=== PATIENT | male | born 1940 | race Caucasian/White ===

== ENCOUNTER 2020-12-29 11:20 | Inpatient (IN) | payer OTHER ==
[2020-12-29 12:17] LABS: Absolute Lymphocytes (CBC) 0.6 K/uL (0.7-4.9); Basophils % 0.2 % (0-1.3); Hematocrit 43.9 % (39.6-49.0); Lymphocytes % 8.4 % (15.3-44.8); MPV 7.3 fL (7.6-11.3); RBC Red Blood Cell Count 4.87 M/uL (4.33-5.43)
[2020-12-29 12:40] LABS: Albumin 3.4 g/dL (3.4-5.0); Bilirubin Direct 0.2 mg/dL (0-0.2); Bilirubin Total 0.7 mg/dL (0.2-1.0); Potassium 4.3 mmol/L (3.5-5.1); Protein, Total 7.9 g/dL (6.4-8.2)
[2020-12-29] MEDS ORDERED: NA CHLORIDE 0.9% 500 ML ONE (13:01)
[2020-12-29] MEDS ORDERED: ONDANSETRON 4 MG/2 ML VIAL ONE (13:01)
--- NOTE | 2020-12-29 14:32 | RAD REPORT ---
EXAM DESCRIPTION: CTAbdomen Pelvis Wo Contrast - 12/29/2020 2:21 pm CLINICAL HISTORY: . chronic inguinal hernia;Abd pain;Nausea / vomiting COMPARISON: No comparisons TECHNIQUE: Biphasic CT imaging of the abdomen and pelvis was performed with 100 ml non-ionic IV cont rast. All CT scans are performed using dose optimization technique as appropriate and may include automated exposure control or mA/KV adjustment according to patient size. FINDINGS: Lower chest: Coronary artery calcifications. Several pulmonary nodules noted in the right lower lobe and lingula. For example, there is a 11 mm nodule in the right lower lobe on image 9, seri es 301. Circumferential thickening of the distal esophagus. Liver: No acute abnormality or suspicious lesions. Biliary: Cholelithiasis. Stomach: Markedly distended stomach. Duodenum: Distended duodenum Pancreas: No significant abnormality. Spleen: No significant abnormality. Adrenal: Benign right adrenal nodule Kidney/ureter: No hydronephrosis. Right nephrolithiasis with stone measuring 9 millimeters. Too small to characterize and/or benign appearing renal lesions are noted. Retroperitoneum: No retroperitoneal adenopathy. Vascular: Atherosclerosis without aneurysm Bowel: Small bowel obstruction with transition point secondary to a large bowel containing right ingu inal hernia with severe enlargement of the scrotum. Free fluid is present.. Peritoneum: No ascites or free air. Bladder: Grossly unremarkable. Reproductive: No adnexal masses. Bones: No acute fracture. Other: n/a IMPRESSION: Mechanical small bowel obstruction secondary to a large sized small bowel containing rig ht inguinal hernia. Free fluid is present. No perforation or abscess. Recommend surgical consultation . Also, consider NG tube decompression of the stomach. Several pulmonary nodules which are indeterminate. Recommend nonemergent chest CT for further evaluat ion.
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
--- NOTE | 2020-12-29 14:53 | ER ---
Nurse's Notes [facility] Name: Lucio Perez III Age: 80 yrs Sex: Male : 1940 Arrival Date: 12/29/2020 Time: 11:39 Bed 27 Private MD: Diagnosis: Other intestinal obstruction;Unilateral inguinal hernia, with obstruction, without gangrene, not specified as recurrent;Acute kidney failure, unspecified Presentation: 12/29 12:20 Chief complaint:. Coronavirus screen: Vaccine status: Patient reports receiving the 2nd kh1 dose of the covid vaccine. received moderna in june nausea, vomiting. Ebola Screen: No symptoms or risks identified at this time. Initial Sepsis Screen: Does the patient meet any 2 criteria? No. Patient's initial sepsis screen is negative. Risk Assessment: Do you want to hurt yourself or someone else? Patient reports no desire to harm self or others. Note Brought in by EMS c/o abd pain times 2 days. positive n/v this am. denies diarrhea. states possible re injury of abd hernia. Onset of symptoms was December 27, 2020. 12:20 Method Of Arrival: EMS: [facility] 12:20 Acuity: NICCI 2 1 12:30 Initial Sepsis Screen: Does the patient have a suspected source of infection? No. kh1 Patient's initial sepsis screen is negative. Triage Assessment: 12:26 General: Appears in no apparent distress. comfortable, Behavior is calm, cooperative, kh1 appropriate for age. Pain: Denies pain. Neuro: No deficits noted. Level of Consciousness is awake, alert, obeys commands, Oriented to person, place, time, situation, Destination Imagination Coordinator are equal bilaterally Moves all extremities. Full function Speech is normal. Cardiovascular: No deficits noted. Reports nausea, vomiting. Respiratory: No deficits noted. Airway is patent Respiratory effort is even, unlabored, Respiratory pattern is regular. GI: Abdomen is distended, Last BM was December 28, 2020. : Swelling noted. - Immunization history:: Adult Immunizations up to date, Client reports receiving the 2nd dose of the Covid vaccine. - Family history:: not pertinent. - Social history:: Smoking status: Patient denies any tobacco usage or history of. Patient/guardian denies using alcohol, street drugs, tobacco products. - Hospitalizations: : No recent hospitalization is reported. Screenin:30 Abuse screen: Denies threats or abuse. Nutritional screening: No deficits noted. kh1 Tuberculosis screening: No symptoms or risk factors identified. Fall Risk None identified. Assessment: 12:29 General: Appears in no apparent distress. Behavior is calm, cooperative, appropriate kh1 for age. Pain: Denies pain. Neuro: No deficits noted. Level of Consciousness is awake, alert, obeys commands, Oriented to person, place, time, situation, Destination Imagination Coordinator are. Cardiovascular: No deficits noted. 14:15 Reassessment: Patient appears in no apparent distress at this time. No changes from [facility] previously documented assessment. Patient and/or family updated on plan of care and expected duration. Pain level reassessed. Patient is alert, oriented x 3, equal unlabored respirations, skin warm/dry/pink. 15:30 Reassessment: Patient appears in no apparent distress at this time. No changes from kh1 previously documented assessment. Patient and/or family updated on plan of care and expected duration. Pain level reassessed. Patient is alert, oriented x 3, equal unlabored respirations, skin warm/dry/pink. 16:46 Reassessment: Patient appears in no apparent distress at this time. No changes from kh1 previously documented assessment. Patient and/or family updated on plan of care and expected duration. Pain level reassessed. Patient is alert, oriented x 3, equal unlabored respirations, skin warm/dry/pink. 17:30 Reassessment: NG Tube placed in left nares. NG Tube is to LIWS. 2200cc of green liquid kh1 noted and discarded awaiting admit ordres. 18:12 Reassessment: Patient appears in no apparent distress at this time. No changes from 1 previously documented assessment. Patient and/or family updated on plan of care and expected duration. Pain level reassessed. Patient is alert, oriented x 3, equal unlabored respirations, skin warm/dry/pink. Patient states feeling better. Vital Signs: 12:20 BP 116 / 70; Pulse 94; Resp 24; Temp 98.4; Pulse Ox 95% on R/A; kh1 12:28 BP 116 / 70; Pulse 94; Resp 24; Temp 98.4(O); Pulse Ox 95% on R/A; kh1 14:15 BP 136 / 77; Pulse 87; Resp 20; Pulse Ox 95% ; kh1 16:00 BP 121 / 81; Pulse 88; Resp 20; Temp 98.0; Pulse Ox 96% ; kh1 18:13 BP 111 / 83; Pulse 87; Resp 18; Pulse Ox 94% on R/A; 1 ED Course: 11:39 Patient arrived in ED. rn 11:39 Clark Steele MD is Attending Physician. rn 12:20 Kimberly Marte is Primary Nurse. kh1 12:26 Triage completed. kh1 12:27 Arm band placed on right wrist. kh1 12:30 No provider procedures requiring assistance completed. Inserted saline lock: 20 gauge [facility] in right antecubital area, using aseptic technique. Blood collected. 12:33 Patient has correct armband on for positive identification. Bed in low position. Call [facility] light in reach. Side rails up X2. Adult w/ patient. 12:34 Basic Metabolic Panel Sent. kh1 12:34 Hepatic Function Sent. kh1 12:34 Lipase Sent. 1 14:21 Abdomen In Process Unspecified. EDMS 14:51 Gisel Brannon MD is Hospitalizing Provider. rn Administered Medications: 12:49 Drug: NS 0.9% 500 ml Route: IV; Rate: bolus; Site: right antecubital; [facility] 12:49 Drug: Zofran (Ondansetron) 4 mg Route: IVP; Site: right antecubital; kh 15:50 Drug: Zosyn (piperacillin-tazobactam) 3.375 grams Route: IVPB; Infused Over: 60 mins; [facility] Site: right antecubital; Outcome: 14:52 Decision to Hospitalize by Provider. rn 12/30 17:38 Patient left the ED. ss Signatures: Dispatcher [employer] EDMS Clark Steele MD MD rn Smirch, Shelby, RN RN ss Kimberly Marte [facility] Corrections: (The following items were deleted from the chart) 12/29 13:01 12:34 CORONAVIRUS+MR.LAB.BRZ drawn and sent. [facility] EDMS 14:17 12:34 To radiology for Abdomen Pelvis W Con+CT.RAD.BRZ. [facility] EDMS
[2020-12-29] MEDS ORDERED: PIPERACIL/TAZO 3.375 GM VIAL IV ONE (15:33)
[2020-12-29] MEDS ORDERED: NA CHLORIDE 0.9% 100 ML ONE (15:34)
[2020-12-29] MEDS ORDERED: PIPER/TAZO/NS 3.375gm 3.375 GM/100 ML BAG ONE (15:36)
--- NOTE | 2020-12-29 18:19 | P.HP ---
Certification for Inpatient Patient admitted to: Inpatient With expected LOS: >2 Midnights Patient will require the following post-hospital care: Senior Living Practitioner: I am a practitioner with admitting privileges, knowledge of patient current condition, hospital course, and medical plan of care. Services: Services provided to patient in accordance with Admission requirements found in Title 42 Section 412.3 of the Code of Federal Regulations <Zia Brito - Last Filed: 12/29/20 18:11> Patient History Date of Service: 12/29/20 Primary Care Provider: Dr. Villafana Reason for admission: Small Bowel Obstruction History of Present Illness: CT Abdomen Pelvis Wo Contrast - 12/29/2020 2:21 pm chronic inguinal hernia; Abd pain; Nausea / vomiting FINDINGS: Lower chest: Coronary artery calcifications. Several pulmonary nodules noted in the right lower lobe and lingula. For example, there is a 11 mm nodule in the right lower lobe on image 9, series 301. Circumferential thickening of the distal esophagus. Liver: No acute abnormality or suspicious lesions. Biliary: Cholelithiasis. Stomach: Markedly distended stomach. Duodenum: Distended duodenum Pancreas: No significant abnormality. Spleen: No significant abnormality. Adrenal: Benign right adrenal nodule Kidney/ureter: No hydronephrosis. Right nephrolithiasis with stone measuring 9 millimeters. Too small to characterize and/or benign appearing renal lesions are noted. Retroperitoneum: No retroperitoneal adenopathy. Vascular: Atherosclerosis without aneurysm Bowel: Small bowel obstruction with transition point secondary to a large bowel containing right inguinal hernia with severe enlargement of the scrotum. Free fluid is present.. Peritoneum: No ascites or free air. Bladder: Grossly unremarkable. Reproductive: No adnexal masses. Bones: No acute fracture. Other: n/a IMPRESSION: Mechanical small bowel obstruction secondary to a large sized small bowel containing right inguinal hernia. Free fluid is present. No perforation or abscess. Recommend surgical consultation. Also, consider NG tube decompression of the stomach. Several pulmonary nodules which are indeterminate. Recommend nonemergent chest CT for further evaluation. Lucio Perez is a 80-year-old white male with significant medical history. Currently has mild dementia suffers from skin cancer with multiple lesions and is a bit hard of hearing, he has diabetes and and an abdominal hernia. Approximately 4 days ago he began to have pain in his lower abdomen which his attributed to musculoskeletal strain from working outside. The pain worsened across the next 3 days and this morning the patient was unable to eat and vomited some Ensure. As a result he came to the emergency room. The patient's abdomen was distended and tender to the touch. A CT scan demonstrated a small bowel obstruction. Dr. Harrington was consulted about the case and is going to provide surgical assistance today. Patient currently has an NG tube to intermittent suction and is resting comfortably. His is present. Sodium 132, glucose 243, BUN 60, creatinine 3.21, GFR 19, patient is Covid negative. White blood count is 7.1. Home medications list reviewed: Yes - Past Medical/Surgical History Diabetic: Yes -: Small bowel obstruction -: Inguinal hernia -: Renal failure -: Skin Cancer -: HTN -: Memory loss -: Skin Cancer surgeries Psychosocial/ Personal History: Lives at home with . Retired. - Family History Father -: Heart disease Mother -: Heart disease - Social History Smoking Status: Never smoker Alcohol use: No CD- Drugs: No Caffeine use: Yes Place of Residence: Home <Zia Brito - Last Filed: 12/29/20 18:11> Date of Service: 12/29/20 <Gisel Brannon - Last Filed: 01/03/21 01:53> Allergies No Known Allergies Allergy (Unverified 12/29/20 21:51) Home Medications: Amlodipine [Norvasc*] 5 mg PO DAILY #30 tab 01/01/21 Ciprofloxacin HCl [Cipro 250 MG Tablet*] 250 mg PO BID #14 tab 01/01/21 Donepezil [Aricept*] 1 tab PO BEDTIME 01/01/21 Metformin HCl [Glucophage*] 1 tab PO BID 01/01/21 Metoprolol Tartrate [Lopressor*] 1 tab PO DAILY 01/01/21 Sertraline [Zoloft*] 25 mg PO DAILY 01/01/21 metroNIDAZOLE [Flagyl] 250 mg PO Q8H #20 tablet 01/01/21 Review of Systems General: Unremarkable Eyes: Unremarkable ENT: Unremarkable Respiratory: Unremarkable Cardiovascular: Unremarkable Gastrointestinal: Nausea, Vomiting, Abdominal Pain, Distention, As per HPI Genitourinary: Unremarkable Musculoskeletal: Unremarkable Integumentary: As per HPI (Skin Lesions) Neurological: Other (Memory loss and dementia (mild)) <Zia Brito - Last Filed: 12/29/20 18:11> Physical Examination - Physical Exam General: Alert, Oriented x3 HEENT: Normocephalic, PERRLA Neck: Supple Respiratory: Clear to auscultation bilaterally, Normal air movement Cardiovascular: No edema, Normal pulses Capillary refill: <2 Seconds Gastrointestinal: Hypoactive, Rigidity, Distended, Tenderness Musculoskeletal: No clubbing, No swelling, No contractures Integumentary: Other (multiple skin lesions (cancerous)) External genitalia: Deferred Rectal: Deferred - Studies Laboratory Data (last 24 hrs) 12/29/20 12:03: WBC 7.10, Hgb 15.0, Hct 43.9, Plt Count 281 12/29/20 12:03: Sodium 132 L, Potassium 4.3, BUN 60 H, Creatinine 3.21 H, Glucose 243 H, Total Bilirubin 0.7, AST 37, ALT 29, Alkaline Phosphatase 80, Lipase 105 <Zia Brito - Last Filed: 12/29/20 18:11> Assessment and Plan - Plan Assessment: Small bowel obstruction Inguinal hernia Diabetes Renal Failure Dementia Skin Cancer Plan: Small bowel obstruction: NPO, NG tube to intermittent suction. IV NS 75 Inguinal hernia: Surgical consult Diabetes: Monitor blood sugar, Sliding scale Renal Failure: Nephrology consult Dementia: Follow up with PCP Skin Cancer: Pt being followed by oncology. DVT PPx: None (pending surgery) CODE STATUS: Full Discharge Plan: Home Plan to discharge in: Greater than 2 days - Advance Directives Does patient have a Living Will: No Does patient have a Durable POA for Healthcare: No - Code Status/Comfort Care Code Status Assessed: Yes Code Status: Full Code Time Spent Managing Pts Care (In Minutes): 55 <Zia Brito - Last Filed: 12/29/20 18:11> - Problems (Diagnosis) (1) Small bowel obstruction Current Visit: Yes Status: Acute (2) Acute renal insufficiency Current Visit: Yes Status: Acute (3) Hypertension Current Visit: Yes Status: Acute (4) Dementia Current Visit: Yes Status: Acute <Gisel Brannon - Last Filed: 01/03/21 01:53> Date of Service: 12/29/20 Subjective Patient continues to improve. Patient clinical symptoms have not changed. Inguinal hernia is reducible; however, CT scan shows obstruction. Spoke with Cardiology and they state that because of CT scan finding the procedure is more of an emergency. Patient is moderate risk for complications the benefit of surgery outweigh the risks. They have advised to proceed with surgery intervention Review of Systems 10-point ROS is otherwise unremarkable Physical Examination - Vital Signs Reviewed - Physical Exam General: Alert, In no apparent distress, Oriented x3 Respiratory: Clear to auscultation bilaterally, Normal air movement Cardiovascular: Regular rate/rhythm, Normal S1 S2 Gastrointestinal: Diminished breath sounds but still distended; inguinal hernia Musculoskeletal: No tenderness Neurological: Sensation intact, Cranial nerves 3-12 intact Assessment & Plan - Problems (Diagnosis) (1) Small bowel obstruction secondary to inguinal hernia Current Visit: Yes Status: Acute (2) Acute renal insufficiency Current Visit: Yes Status: Acute (3) Hypertension Current Visit: Yes Status: Acute (4) Dementia Current Visit: Yes Status: Acute - Plan Plan: Continue with plan of care as mentioned below 1. General surgery consultation appreciated; proceed with surgery in a.m. 2. NPO 3. Pain control 4. Monitor electrolytes 5. Continue monitoring renal function 6. IV hydration; abd./renal ultrasound pending 7. Strict blood pressure control 8. Abdominal film as needed 9. GI and DVT prophylaxis <Gisel Brannon - Last Filed: 01/03/21 01:53>
[2020-12-29] MEDS: INSULIN -REGULAR HUMAN 50 UNIT/0.5 ML ML SQ SCH (21:51)
[2020-12-29] MEDS ORDERED: MORPHINE 2 MG/ML SYR IV PRN (21:51)
[2020-12-29] MEDS ORDERED: ONDANSETRON 4 MG/2 ML VIAL IV PRN (21:51)
[2020-12-29] MEDS: NA CHLORIDE 0.9% 1,000 ML IV SCH (21:51)
[2020-12-29] MEDS ORDERED: NA CHLORIDE 0.9% 1,000 ML ONE (22:23)
[2020-12-29 23:28] LABS: Thyroid Stimulating Hormone 1.02 uIU/mL (0.360-3.740)
[2020-12-30] MEDS ORDERED: HALOPERIDOL LACT 5 MG/ML INJ IV ONE (00:55)
[2020-12-30] MEDS ORDERED: HALOPERIDOL LACT 5 MG/ML INJ ONE ×3 (01:30→16:27)
[2020-12-30] MEDS ORDERED: LORazepam 2 MG/ML VIAL IV ONE (02:11)
[2020-12-30] MEDS ORDERED: LORazepam 2 MG/ML VIAL ONE (02:38)
[2020-12-30] MEDS ORDERED: MORPHINE 2 MG/ML SYR ONE (02:54)
[2020-12-30 04:15] VITALS: BMI 25.0
[2020-12-30 07:03] LABS: Absolute Lymphocytes (CBC) 0.8 K/uL (0.7-4.9); Basophils % 0.2 % (0-1.3); Hematocrit 38.6 % (39.6-49.0); Lymphocytes % 16.6 % (15.3-44.8); MPV 7.5 fL (7.6-11.3); RBC Red Blood Cell Count 4.33 M/uL (4.33-5.43)
[2020-12-30 07:14] LABS: Albumin 3.1 g/dL (3.4-5.0); Bilirubin Total 0.5 mg/dL (0.2-1.0); Magnesium 1.8 mg/dL (1.8-2.4); Potassium 3.5 mmol/L (3.5-5.1); Uric Acid 10.5 mg/dL (3.5-7.2)
--- NOTE | 2020-12-30 07:14 | P.PN ---
Subjective Date of Service: 12/30/20 Primary Care Provider: Dr. Villafana Chief Complaint: Small Bowel Obstruction Physical Examination - Vital Signs Temperature: 97.9 F Blood Pressure: 109/59 Pulse: 85 Respirations: 18 Pulse Ox (%): 98 - Studies Laboratory Data (last 24 hrs) 12/29/20 12:03: WBC 7.10, Hgb 15.0, Hct 43.9, Plt Count 281 12/29/20 12:03: Sodium 132 L, Potassium 4.3, BUN 60 H, Creatinine 3.21 H, Glucose 243 H, Total Bilirubin 0.7, AST 37, ALT 29, Alkaline Phosphatase 80, Lipase 105
--- NOTE | 2020-12-30 07:14 | P.CNS ---
Date of Consult: 12/30/20 Reason for Consult: ASHLYN Requesting Physician: Gisel Brannon Primary Care Provider: Dr. Villafana Chief Complaint: Small Bowel Obstruction History of Present Illness: 80M w/ PMHx of inguinal hernia, hypertension, and skin cancer, who presented with abdominal pain. He reported abdominal pain mostly in the epigastric area. CT scan of the abdomen and pelvis showed a small bowel obstruction with a right inguinal hernia. He is referred to Nephrology for renal failure. His serum creatinine on admission is 3.2, and improved to 2.6 with IV fluids. His baseline renal function is unknown. He is still receiving IV fluids. He has an NG tube in place. He had a renal ultrasound done that showed an 8 mm right nephrolithiasis. Allergies No Known Allergies Allergy (Unverified 12/29/20 21:51) - Past Medical/Surgical History Diabetic: Yes -: Small bowel obstruction -: Inguinal hernia -: Renal failure -: Skin Cancer -: HTN -: Memory loss -: Skin Cancer surgeries Psychosocial/ Personal History: Lives at home with . Retired. - Family History Father Medical History: Heart disease Mother Medical History: Heart disease - Social History Alcohol use: No CD- Drugs: No Caffeine use: Yes Place of Residence: Home Review of Systems General: Weakness Eyes: Unremarkable ENT: Unremarkable Respiratory: Unremarkable Cardiovascular: Unremarkable Gastrointestinal: Abdominal Pain Genitourinary: Unremarkable Musculoskeletal: Unremarkable Integumentary: Unremarkable Neurological: Weakness Lymphatics: Unremarkable Physical Examination Temp Pulse Resp BP Pulse Ox 97.9 F 85 18 109/59 L 98 12/30/20 04:00 12/30/20 04:00 12/30/20 04:00 12/30/20 04:00 12/30/20 04:00 General: Other (appears as his stated age) HEENT: Atraumatic, Normocephalic, Other (has NG tube in place) Neck: Supple, JVD not distended Respiratory: Clear to auscultation bilaterally, Other (symmetric chest expansion) Cardiovascular: Normal S1 S2, No rubs, No murmurs Gastrointestinal: Hypoactive, Soft and benign Musculoskeletal: No clubbing Integumentary: No warmth Neurological: Normal tone Urinary: Other (no bladder distention) External genitalia: Deferred Rectal: Deferred Laboratory Data (last 24 hrs) 12/29/20 12:03: WBC 7.10, Hgb 15.0, Hct 43.9, Plt Count 281 12/29/20 12:03: Sodium 132 L, Potassium 4.3, BUN 60 H, Creatinine 3.21 H, Glucose 243 H, Total Bilirubin 0.7, AST 37, ALT 29, Alkaline Phosphatase 80, Lipase 105 Conclusions/Impression: # ASHLYN 2/2 prerenal state +/- ATN from prolonged prerenal Baseline renal function unknown CPK not elevated, no rhabdomyolysis Serum creatinine improved from 3.2 to 2.6 with IV fluids Continue IV fluids Urinalysis shows trace proteinuria but no hematuria no pyuria Follow-up urine chemistry and random urine protein grand ratio # Small bowel obstruction +R inguinal hernia On NG tube suction currently Continue same IV fluids Serial abdominal examination Further evaluation and management per other services # Hypertension BP at goal Not currently on BP meds Monitor # Alkalosis Monitor
[2020-12-30] MEDS: INSULIN -REGULAR HUMAN 50 UNIT/0.5 ML ML SQ SCH ×4 (07:30→20:33)
[2020-12-30 07:32] LABS: Urine Appearance CLEAR (Clear); Urine Blood NEGATIVE (Negative); Urine Color YELLOW (Yellow); Urine Glucose NEGATIVE (Negative); Urine Protein TRACE (Negative); Urine Urobilinogen 0.2 mg/dL (0.2-1.0)
--- NOTE | 2020-12-30 07:43 | RAD REPORT ---
EXAM DESCRIPTION: US - Renal Ultrasound-Complete - 12/30/2020 2:31 am CLINICAL HISTORY: Acute renal failure COMPARISON: January 06, 2021 cat scan FINDINGS: The right kidney measures 11 cm with a normal echotexture. 8 millimeter calculus. 1.6 cent imeter cyst The left kidney measures 11 cm with a normal echotexture. 2.8 centimeter cyst Hydronephrosis is not seen. No gross abnormality of bladder. Mild enlargement of the prostate gland IMPRESSION: Nonobstructing right renal calculus Bilateral renal cysts No hydronephrosis
[2020-12-30 07:50] LABS: Urine Bilirubin 1+ (Negative); Urine Microscopic Reflex ORDER UMIC
[2020-12-30 07:54] LABS: Urine Bacteria 20-50 /HPF (NONE SEEN); Urine RBC <5 /HPF (NONE SEEN)
[2020-12-30] MEDS: HALOPERIDOL LACT 5 MG/ML INJ IV PRN (10:55)
[2020-12-30] MEDS: NA CHLORIDE 0.9% 1,000 ML IV SCH ×2 (11:11→20:32)
[2020-12-30] MEDS ORDERED: MINERAL OIL 30 ML UCUP PO ONE (13:34)
--- NOTE | 2020-12-30 13:40 | P.PN ---
Subjective Date of Service: 12/29/20 Chart reviewed. Agree with plan per nurse practitioner. Patient with small- bowel obstruction. Continue with NG tube to suction. Patient with severe renal insufficiency. Continue with IV hydration. Continue monitoring renal function. We do not have a baseline. Otherwise, no new complaints. Review of Systems 10-point ROS is otherwise unremarkable Physical Examination - Vital Signs Temperature: 97.9 F Blood Pressure: 124/62 Pulse: 88 Respirations: 16 Pulse Ox (%): 99 - Physical Exam General: Alert, In no apparent distress, Oriented x3 HEENT: Atraumatic, PERRLA, Other (NG tube to suction), EOMI Neck: Supple, JVD not distended Respiratory: Clear to auscultation bilaterally, Normal air movement Cardiovascular: Regular rate/rhythm, Normal S1 S2 Gastrointestinal: Absent bowel sounds, Distended, Tenderness Musculoskeletal: No tenderness Neurological: Sensation intact, Cranial nerves 3-12 intact - Studies Medications List Reviewed: Yes Assessment & Plan - Problems (Diagnosis) (1) Small bowel obstruction Current Visit: Yes Status: Acute (2) Acute renal insufficiency Current Visit: Yes Status: Acute (3) Hypertension Current Visit: Yes Status: Acute (4) Dementia Current Visit: Yes Status: Acute - Plan Plan: 1. General surgery consultation 2. NPO 3. Pain control 4. Monitor electrolytes 5. Continue monitoring renal function 6. Aggressive IV hydration 7. Monitor neuro status closely 8. Out of bed and ambulate 9. Repeat abdominal film 10. GI and DVT prophylaxis Discharge Plan: Home Plan to discharge in: Greater than 2 days - Advance Directives Does patient have a Living Will: Yes Does patient have a Durable POA for Healthcare: No - Code Status/Comfort Care Code Status: Full Code Critical Care: No Time Spent Managing PTS Care (In Minutes): 45
--- NOTE | 2020-12-30 13:42 | P.PN ---
Date of Service: 12/30/20 Subjective Patient with altered mental status last night. Patient was given Haldol and now patient is asleep. Review of Systems 10-point ROS is otherwise unremarkable Physical Examination - Vital Signs Reviewed - Physical Exam General: Alert, In no apparent distress, Oriented x3 Respiratory: Clear to auscultation bilaterally, Normal air movement Cardiovascular: Regular rate/rhythm, Normal S1 S2 Gastrointestinal: Absent bowel sounds, Distended, Tenderness Musculoskeletal: No tenderness Neurological: Sensation intact, Cranial nerves 3-12 intact Assessment & Plan - Problems (Diagnosis) (1) Small bowel obstruction Current Visit: Yes Status: Acute (2) Acute renal insufficiency Current Visit: Yes Status: Acute (3) Hypertension Current Visit: Yes Status: Acute (4) Dementia Current Visit: Yes Status: Acute - Plan Plan: Continue with plan of care as mentioned below 1. General surgery consultation appreciated 2. NPO 3. Pain control 4. Monitor electrolytes 5. Continue monitoring renal function 6. Aggressive IV hydration; renal ultrasound pending 7. Haldol IV; patient most likely sundowning 8. Strict blood pressure control 9. Repeat abdominal film 10. GI and DVT prophylaxis
[2020-12-30] MEDS ORDERED: NA CHLORIDE 0.9% 1,000 ML ONE (14:27)
--- NOTE | 2020-12-30 19:39 | P.CNS ---
Date of Consult: 12/29/20 PC: I was asked to see this 80-year-old male regards to a partial small bowel obstruction. HPC: Patient has been working over the weekend in his yard. This morning when he woke up, he was having left-sided swelling and groin pain. The patient has a history of a left inguinal hernia. PSHx: Numerous surgeries for skin cancers PMHx: Hypertension, mild dementia Social Hx: No known allergies Sys R: States he is otherwise in good health O/E: Awake alert vital signs are stable HEENT: Nasogastric tube in place, already has 2 L of green thick bilious content Chest: Chest movement equal bilaterally Abd: Abdomen is mildly distended, mildly tender. [The ER physician describes it as being markedly tender when he initially examined the patient. This was prior to placement of NG tube.] Has a left inguinal hernia [place]: Intact Data: CT scan demonstrates left inguinal hernia, with partial small bowel obstruction, no clear-cut evidence of vascular compromise Impression: Patient presented with a initial left lower quadrant abdominal pain associated with his left inguinal hernia. He has already responded to the nasogastric tube and some initial decompression by the time I saw him. Plan: Continue nasogastric suction, IV fluids, will follow with you.
[2020-12-31 06:29] LABS: Absolute Lymphocytes (CBC) 0.8 K/uL (0.7-4.9); Basophils % 0.4 % (0-1.3); Hematocrit 38.9 % (39.6-49.0); Lymphocytes % 15.2 % (15.3-44.8); MPV 7.1 fL (7.6-11.3); RBC Red Blood Cell Count 4.33 M/uL (4.33-5.43)
[2020-12-31 06:49] LABS: Bilirubin Total 0.6 mg/dL (0.2-1.0); Magnesium 2.1 mg/dL (1.8-2.4); Phosphorus 2.1 mg/dL (2.5-4.9); Potassium 3.4 mmol/L (3.5-5.1)
[2020-12-31] MEDS: INSULIN -REGULAR HUMAN 50 UNIT/0.5 ML ML SQ SCH ×4 (07:30→20:08)
[2020-12-31] MEDS ORDERED: POTASSIUM CL 40 MEQ in NA CHLORIDE 0.9% 500 ML IV ONE (08:00)
--- NOTE | 2020-12-31 08:54 | RAD REPORT ---
EXAM DESCRIPTION: RAD - Abdomen W Erect - 12/31/2020 5:44 am CLINICAL HISTORY: Small-bowel obstruction Pain COMPARISON: Abdomen Pelvis Wo Contrast dated 12/29/2020 FINDINGS: Moderately organized and stacked dilated small bowel loops are present throughout the abdo men compatible with a moderate mechanical small-bowel obstruction. There is a lack of gas seen in the colon. No evidence of pneumoperitoneum. No pathologic calcifications. IMPRESSION: Moderate mechanical small-bowel obstruction is present.
[2020-12-31] MEDS ORDERED: POTASSIUM PHOS 10 MM in NA CHLORIDE 0.9% 250 ML IV ONE (13:30)
[2020-12-31] MEDS: NA CHLORIDE 0.9% 1,000 ML IV SCH (13:51)
[2020-12-31] MEDS ORDERED: MINERAL OIL 30 ML UCUP PO ONE (14:12)
--- NOTE | 2020-12-31 16:34 | PN ---
Date of Progress Note: 12/31/2020 Subjective: The patient was admitted with acute kidney injury secondary to small bowel obstruction and prerenal. The patient's after hydration kidney function has been improved significantly. Physical Examination: Vital Signs: When I saw the patient; blood pressure 137/70, pulse of 84, afebrile. Chest: Clear to auscultation. Heart: S1, S2. Regular. Systolic murmur. Abdomen: Soft. Bowel sounds appreciated. No guarding. Extremities: No edema. Neurologic: Alert. No focality. Laboratory Data: WBC 5.3, H and H 13.5/38.9. Sodium 142, potassium 3.4, bicarb 27, BUN 52, creatinine 1.5, calcium 8.5, phosphorus 2.1, magnesium of 2.1. Current Medications: The patient on include haloperidol, lorazepam, insulin, IV fluid. Assessment And Plan: 1. Acute kidney injury secondary to prerenal, obstructive uropathy has been ruled out. We will continue hydration. 2. Hypokalemia, hypophosphatemia. We will supplement and we will follow up the patient. 3. Small bowel obstruction as by primary. 4. Hypertension, controlled, optimal. Continue to monitor off JENNIFER inhibitor and ARB. JUNE/ANGUS Voice ID: [id number] Report ID: [id number] MTDD
[2021-01-01] MEDS: NA CHLORIDE 0.9% 1,000 ML IV SCH (01:03)
[2021-01-01 01:10] LABS: UR PROTEIN 75.3 mg/dL (<11.9); Urine Protein/Creatinine Ratio 0.34 ratio (<0.15)
[2021-01-01 05:25] LABS: Absolute Lymphocytes (CBC) 0.9 K/uL (0.7-4.9); Basophils % 0.1 % (0-1.3); Hematocrit 41.1 % (39.6-49.0); Lymphocytes % 9.2 % (15.3-44.8); MPV 7.4 fL (7.6-11.3); RBC Red Blood Cell Count 4.52 M/uL (4.33-5.43)
[2021-01-01 05:49] LABS: Albumin 3.4 g/dL (3.4-5.0); Bilirubin Total 0.6 mg/dL (0.2-1.0); Potassium 3.9 mmol/L (3.5-5.1); Protein, Total 7.5 g/dL (6.4-8.2)
[2021-01-01] MEDS ORDERED: POTASSIUM 25 MEQ EFFERV TAB PO ONE (07:11)
[2021-01-01] MEDS: INSULIN -REGULAR HUMAN 50 UNIT/0.5 ML ML SQ SCH ×4 (07:30→21:00)
--- NOTE | 2021-01-01 14:28 | PN ---
Date of Progress Note: 01/01/2021 Subjective: The patient was admitted with acute kidney injury and shortness of breath with hypokalem ia. The patient's after hydration kidney function got close to baseline. Physical Examination: Vital Signs: When I saw the patient; blood pressure 150/82, pulse of 79, afebrile. Chest: Clear to auscultation. The patient lying flat. Heart: S1, S2. Regular. Systolic murmur. Abdomen: Soft, nontender. Extremity: No edema. Neuro: Alert. No focality. Laboratory Data: Sodium 138, potassium 3.9, bicarb 29, BUN 31, creatinine 1.3, calcium 8.7. H and H 14/41.1. Current Medications: The patient on include insulin, haloperidol, normal saline at 75 per hour, KCl. Assessment And Plan: 1.Acute kidney injury secondary to prerenal, secondary to GI loss, recovered, resolved. I am going to go ahead and discontinue IV fluid. 2.Hypokalemia, status post supplement, resolved. 3.Hyponatremia secondary to depletional, resolved. Discontinue IV fluid. 4.Small bowel obstruction as by Surgery and hospitalist. JUNE/ANGUS Voice ID: [id number] Report ID: [id number]
--- NOTE | 2021-01-01 18:52 | RAD REPORT ---
EXAM DESCRIPTION: RAD - Abdomen 1 View (KUB) - 01/01/2021 6:45 pm CLINICAL HISTORY: abdominal pain Pain COMPARISON: Abdomen W Erect dated 12/31/2020; Abdomen Pelvis Wo Contrast dated 12/29/2020 FINDINGS: Moderately severe mechanical small bowel obstruction is present. The degree of the obstruc tion appears mildly worse with several dilated small bowel loops now projecting in the region of the scrotal hernia. No free air evident. No pathologic calcifications. IMPRESSION: Mild worsening in the mechanical small-bowel obstruction since yesterday's study.
--- NOTE | 2021-01-02 05:24 | P.PN ---
Subjective Date of Service: 01/02/21 Primary Care Provider: Dr. Villafana Chief Complaint: Small Bowel Obstruction Subjective: No new changes Physical Examination - Vital Signs Temperature: 97.7 F Blood Pressure: 136/75 Pulse: 102 Respirations: 20 Pulse Ox (%): 93 - Physical Exam General: Other (appears as his stated age) HEENT: Atraumatic, Normocephalic Neck: Supple, JVD not distended Respiratory: Other (symmetric chest expansion) Cardiovascular: No rubs, No murmurs Gastrointestinal: Soft and benign, No guarding Musculoskeletal: No clubbing Integumentary: No warmth Neurological: Normal tone Urinary: Other (no bladder distention) - Studies Medications List Reviewed: Yes Assessment And Plan - Plan # ASHLYN 2/2 prerenal state +/- ATN from prolonged prerenal Improved Baseline renal function unknown [place] po fluid intake Monitor renal panel # Small bowel obstruction +R inguinal hernia Serial abdominal examination Repeat CT A/P on 01/02 showed no acute findings Further evaluation and management per other services # Hypertension BP at goal Not currently on BP meds Monitor # Alkalosis Monitor
[2021-01-02 06:16] LABS: Potassium 3.9 mmol/L (3.5-5.1)
[2021-01-02] MEDS: INSULIN -REGULAR HUMAN 50 UNIT/0.5 ML ML SQ SCH ×4 (07:30→22:14)
[2021-01-02] MEDS ORDERED: POTASSIUM CL SA 10 MEQ TAB PO ONE (09:00)
--- NOTE | 2021-01-02 12:34 | RAD REPORT ---
EXAM DESCRIPTION: CT - Abdomen Pelvis W Contrast - 01/02/2021 11:36 am CLINICAL HISTORY: Abdominal pain COMPARISON: December 29, 2020 TECHNIQUE: Computed axial tomography of the abdomen pelvis was obtained. 100 cc Isovue-300 was admin istered intravenously. Oral contrast was not requested which limits evaluation of bowel. All CT scans are performed using dose optimization technique as appropriate and may include automated exposure control or mA/KV adjustment according to patient size. FINDINGS: Hepatic and splenic granulomata. The pancreas and left adrenal gland are unremarkable. 4 centimeter right adrenal mass. 10 millimeter calculus right kidney. No hydronephrosis. Bilateral renal cysts. Gallstones without gallbladder wall thickening. Bilateral pulmonary nodules Marked gastric distention. Large right inguinal hernia contains small bowel. Proximal small bowel is dilated. A transition point is present within the hernia. Fluid is present within the hernia. Small left inguinal hernia contain s fat. Prostate gland is mildly to moderately enlarged. IMPRESSION: A large right inguinal hernia contains small bowel. This results in a mechanical obstruc tion. Large amount of fluid is present within the hernia. Multiple bilateral pulmonary nodules may indicate metastatic disease or granulomas. CT chest recommen ded. 4 centimeter right adrenal mass is nonspecific. MRI would be helpful to rule in an adenoma. Cholelithiasis without evidence of cholecystitis
[2021-01-02] MEDS: D5W 1,000 ML with NA BICARB 8.4% 50 MEQ IV SCH ×2 (14:43)
--- NOTE | 2021-01-02 17:00 | CON ---
Date of Consultation: 01/02/2021 Reason For Consultation: Preop evaluation before hernia surgery. History Of Present Illness: This 80-year-old male with no cardiac history, had numerous skin surgeri es under general anesthesia due to skin cancer. Last one was about 4 years ago and no issues with ge neral anesthesia, presented with a large inguinal hernia that seems to cause obstruction. I was aske d to evaluate cardiac risk before surgery. Past Medical History: Hypertension, skin cancer, large inguinal hernia. Medication: Refer to reconciliation sheet for detailed list. Allergies: NO KNOWN DRUG ALLERGIES. Family History: No premature coronary artery disease or cancer. Review of Systems: All systems reviewed, negative except what mentioned in the HPI. Physical Examination: Vital Signs: Temperature is 98.0, pulse 97, breathing at 18, blood pressure 148/84, satting 96%. General: Pleasant elderly male, in no distress. Head and Neck: Pupils are equal, reactive to light. Intact eye movements. No JVD. No cervical lym phadenopathy. Neck: Supple. Thyroid is not enlarged. Lungs: Clear to auscultation bilaterally. No rhonchi, rales, or crackles. No accessory muscle use. Heart: Regular with aortic systolic murmur. Abdomen: Soft, nontender. Extremities: No clubbing, cyanosis. Skin: No rashes. Has multiple skin scars from old surgeries. Neurologic: Alert, awake, oriented x3. No focal deficits appreciated. Investigations: Labs were reviewed. Assessment And Recommendations: Cardiac preop risk assessment. This patient is active and he does h is yard work by himself without limitations of chest pain or significant shortness of breath and rece ntly climbed more than 1 flight of stairs without any chest pain. No known cardiac history. Due to his age, he is at moderate cardiac risk, however, the hernia seems to be causing obstruction and the surgery seems to be urgent. At this point, I will proceed after obtaining an echocardiogram on him. Thank you for the consult. /MODL Voice ID: [id number] Report ID: [id number]
--- NOTE | 2021-01-03 01:47 | P.PN ---
Date of Service: 12/31/20 Subjective Patient looks to be doing a little bit better today. Will see how he ambulates. Large inguinal hernia noted on the left side. If patient ambulates without difficulty and if he is tolerating diet without distension or pain than anticipate discharge home. Review of Systems 10-point ROS is otherwise unremarkable Physical Examination - Vital Signs Reviewed - Physical Exam General: Patient was awake and alert melissa oriented to person place and time Respiratory: Clear to auscultation bilaterally, Normal air movement Cardiovascular: Regular rate/rhythm, Normal S1 S2 Gastrointestinal: Diminished bowel sounds; inguinal hernia Musculoskeletal: No tenderness; Neurological: Sensation intact, Cranial nerves 3-12 intact Assessment & Plan - Problems (Diagnosis) (1) Small bowel obstruction Current Visit: Yes Status: Acute (2) Acute renal insufficiency Current Visit: Yes Status: Acute (3) Hypertension Current Visit: Yes Status: Acute (4) Dementia Current Visit: Yes Status: Acute - Plan Plan: Continue with plan of care as mentioned below 1. General surgery consultation appreciated 2. Continue NPO 3. Pain control 4. Monitor electrolytes 5. Continue monitoring renal function 6. Aggressive IV hydration; renal ultrasound pending 7. Haldol IV; patient most likely sundowning 8. Strict blood pressure control 9. Repeat abdominal film 10. GI and DVT prophylaxis
--- NOTE | 2021-01-03 01:48 | P.PN ---
Date of Service: 01/01/21 Subjective Patient is doing better. Anticipate try to discharge home later today. Review of Systems 10-point ROS is otherwise unremarkable Physical Examination - Vital Signs Reviewed - Physical Exam General: Alert, In no apparent distress, Oriented x3 Respiratory: Clear to auscultation bilaterally, Normal air movement Cardiovascular: Regular rate/rhythm, Normal S1 S2 Gastrointestinal: Diminished breath sounds the still distended Musculoskeletal: No tenderness Neurological: Sensation intact, Cranial nerves 3-12 intact Assessment & Plan - Problems (Diagnosis) (1) Small bowel obstruction Current Visit: Yes Status: Acute (2) Acute renal insufficiency Current Visit: Yes Status: Acute (3) Hypertension Current Visit: Yes Status: Acute (4) Dementia Current Visit: Yes Status: Acute - Plan Plan: Continue with plan of care as mentioned below 1. General surgery consultation appreciated 2. Start diet may need to make NPO 3. Pain control 4. Monitor electrolytes 5. Continue monitoring renal function 6. Aggressive IV hydration; renal ultrasound pending 7. Haldol IV; patient most likely sundowning 8. Strict blood pressure control 9. Repeat abdominal film 10. GI and DVT prophylaxis
[2021-01-03] MEDS: D5W 1,000 ML with NA BICARB 8.4% 50 MEQ IV SCH ×2 (01:51)
--- NOTE | 2021-01-03 01:51 | P.PN ---
Date of Service: 01/02/21 Subjective Patient continues to improve. Patient clinical symptoms have not changed. Inguinal hernia is reducible; however, CT scan shows obstruction. Spoke with Cardiology and they state that because of CT scan finding the procedure is more of an emergency. Patient is moderate risk for complications the benefit of surgery outweigh the risks. They have advised to proceed with surgery intervention Review of Systems 10-point ROS is otherwise unremarkable Physical Examination - Vital Signs Reviewed - Physical Exam General: Alert, In no apparent distress, Oriented x3 Respiratory: Clear to auscultation bilaterally, Normal air movement Cardiovascular: Regular rate/rhythm, Normal S1 S2 Gastrointestinal: Diminished breath sounds but still distended; inguinal hernia Musculoskeletal: No tenderness Neurological: Sensation intact, Cranial nerves 3-12 intact Assessment & Plan - Problems (Diagnosis) (1) Small bowel obstruction secondary to inguinal hernia Current Visit: Yes Status: Acute (2) Acute renal insufficiency Current Visit: Yes Status: Acute (3) Hypertension Current Visit: Yes Status: Acute (4) Dementia Current Visit: Yes Status: Acute - Plan Plan: Continue with plan of care as mentioned below 1. General surgery consultation appreciated; proceed with surgery in a.m. 2. NPO 3. Pain control 4. Monitor electrolytes 5. Continue monitoring renal function 6. IV hydration; renal ultrasound pending 7. Strict blood pressure control 8. Repeat abdominal film 9. GI and DVT prophylaxis
[2021-01-03] MEDS ORDERED: SODIUM BICARB 50 MEQ/50ML VIAL ONE (02:05)
[2021-01-03 04:47] LABS: Absolute Lymphocytes (CBC) 1.2 K/uL (0.7-4.9); Basophils % 0.4 % (0-1.3); Hematocrit 39.1 % (39.6-49.0); Lymphocytes % 17.6 % (15.3-44.8); MPV 7.4 fL (7.6-11.3); RBC Red Blood Cell Count 4.32 M/uL (4.33-5.43)
[2021-01-03 04:50] LABS: Protime INR 1.25
[2021-01-03 05:05] LABS: Magnesium 1.9 mg/dL (1.8-2.4); Phosphorus 1.4 mg/dL (2.5-4.9); Potassium 3.7 mmol/L (3.5-5.1)
[2021-01-03 05:11] LABS: Bilirubin Total 0.5 mg/dL (0.2-1.0); Potassium 3.6 mmol/L (3.5-5.1); Protein, Total 6.9 g/dL (6.4-8.2)
[2021-01-03] MEDS: INSULIN -REGULAR HUMAN 50 UNIT/0.5 ML ML SQ SCH ×4 (07:30→21:00)
[2021-01-03] MEDS ORDERED: KCL 20 MEQ/100 mL IVPB 20 MEQ/100 ML BAG IV SCH (09:00)
--- NOTE | 2021-01-03 12:01 | PN ---
Date of Progress Note: 01/03/2021 Subjective: The patient was admitted with acute kidney injury secondary to prerenal, secondary to GI loss secondary to small bowel obstruction. The patient planned for surgery either today or tomorrow . The patient maintained on hydration. Kidney function has been improved. Physical Examination: Vital Signs: Blood pressure 144/80, pulse of 91, afebrile. Chest: Clear to auscultation. Heart: S1, S2. Regular. Abdomen: Mild tenderness. No guarding or rebound. Extremities: No edema. Neurologic: Alert. No focality. Laboratory Data: WBC 7.1, H and H 13.2/39.1. Sodium 137, potassium 3.6, bicarb 29, BUN 33, creatini ne down to 1.2, GFR of 54, calcium 8.3, phosphorus yesterday 1.4, magnesium 1.9. Albumin is 3. David ected calcium 9.1. Current Medications: The patient on include; 1.D5 with bicarb. 2.Insulin. 3.KCl. Assessment And Plan: 1.Acute kidney injury secondary to prerenal, recovered, improved significantly. I am going to stevens e IV fluid to D5 half and discontinue the bicarb drip and we will monitor the patient as the patient is still n.p.o. 2.Hypokalemia. We will supplement. 3.Hypophosphatemia, status post supplement. We will follow up. 4.Acidosis, resolved. Discontinue bicarb drip. 5.Small bowel obstruction as by hospitalist and Surgery. EDITA Voice ID: [id number] Report ID: [id number]
[2021-01-03] MEDS: D5.45NS W/KCL 40MEQ 40 MEQ/1,000 ML BAG IV SCH (12:33)
[2021-01-03] MEDS ORDERED: NA CHLORIDE 0.9% 1,000 ML ONE (14:51)
[2021-01-03] MEDS ORDERED: CEFAZOLIN SODIUM 1 GM/VIAL ONE (15:33)
[2021-01-03] MEDS ORDERED: FENTANYL CITR 100 MCG/2 ML ONE (16:00)
[2021-01-03] MEDS ORDERED: MIDAZOLAM HCL 2 MG/2 ML INJ ONE (16:00)
[2021-01-03] MEDS ORDERED: GLYCOPYRROLATE 0.2 MG/ML SYR ONE (16:00)
[2021-01-03] MEDS ORDERED: propofoL 200 MG/20 ML VIAL IV ONE (16:00)
[2021-01-03] MEDS ORDERED: LIDOCAINE 1% MPF 5 ML VIAL ONE (16:00)
[2021-01-03] MEDS ORDERED: NEOSTIGMINE 1 MG/ML -5 ML ONE (16:01)
[2021-01-03] MEDS ORDERED: KETOROLAC 30 MG/ML INJ ONE (16:01)
[2021-01-03] MEDS ORDERED: MORPHINE 10 MG/ML VIAL ONE (16:01)
[2021-01-03] MEDS ORDERED: dexAMETHasone 4 MG/ML VIAL ONE (16:01)
[2021-01-03] MEDS ORDERED: ROCURONIUM 50 MG/5 ML VIAL IV ONE (16:02)
[2021-01-03] MEDS ORDERED: ONDANSETRON 4 MG/2 ML VIAL ONE (16:02)
[2021-01-03] MEDS: NA CHLORIDE 0.9% 1,000 ML ONE ×4 (17:34→17:57)
--- NOTE | 2021-01-03 18:28 | P.PN ---
Subjective Date of Service: 01/03/21 Primary Care Provider: Dr. Villafana Chief Complaint: Small Bowel Obstruction patient seen in the post op. Is sedated. Review of Systems is unable to be obtained Physical Examination - Vital Signs Temperature: 98.5 F Blood Pressure: 133/66 Pulse: 69 Respirations: 18 Pulse Ox (%): 95 - Physical Exam General: Unresponsive HEENT: Atraumatic, PERRLA, EOMI Neck: Supple, JVD not distended Respiratory: Clear to auscultation bilaterally, Normal air movement Cardiovascular: Regular rate/rhythm, Normal S1 S2 Gastrointestinal: Normal bowel sounds, No tenderness Musculoskeletal: No tenderness Integumentary: No rashes Neurological: Normal speech, Normal tone, Normal affect Lymphatics: No axilla or inguinal lymphadenopathy - Studies Medications List Reviewed: Yes Assessment & Plan - Problems (Diagnosis) (1) Small bowel obstruction Current Visit: Yes Status: Acute Plan: s/p repair with Dr. Suarez. Will keep him in house for a few days. (2) Hypertension Current Visit: Yes Status: Acute Plan: will adjust his medications as needed. Qualifiers: Hypertension type: primary hypertension Qualified Code(s): I10 - Essential (primary) hypertension Discharge Plan: Home Plan to discharge in: 48 Hours - Code Status/Comfort Care Code Status Assessed: No Critical Care: No Time Spent Managing Pts Care (In Minutes): 25
--- NOTE | 2021-01-03 18:46 | P.OP ---
Preoperative diagnosis: Large incarcerated right inguinal hernia Postoperative diagnosis: The same Primary procedure: Laparoscopic repair of right inguinal hernia Secondary procedure: Reduction of right inguinal hernia Anesthesia: General Estimated blood loss: Less than 10 cc Specimen: None sent Operative Technique: The patient brought the operating room and placed supine on the table. After the induction of the adequate general endotracheal anesthesia, Rivers catheter was inserted. The patient's abdomen was then prepped with a Betadine solution, and he was draped in usual aseptic manner. Attention was turned towards the umbilicus. A subumbilical incision was made. This was brought down through the skin and subcutaneous tissue. The Visiport was now used to enter the peritoneal cavity and created pneumoperitoneum to approximately 12 mmHg. Under direct vision a 5 mm trocar was placed on the right and left lateral sides of the abdomen. We could inspect the right lower quadrant. We could see there was a large hernial defect measuring approximately 5 cm in size. Through which the small bowel had gone through. Applying gentle traction to the antimesenteric antimesenteric borders of the bowel it was possible to finally empty the scrotum of the bowel and disimpacted from that area. There was no evidence of any vascular compromise on the bowel. We now were looking at a large defect on the right side of the abdominal wall, consistent with a large direct inguinal hernia. At this point attention was turned towards the abdominal wall. We achieved the incision at the umbilicus. This allowed us to dissect down and demonstrate the linea alba. The fascia over the rectus muscle was opened. We were now able to pass our balloon dissector down to the pubic symphysis. However the valve on that appliance was not competent and would not hold pressure. Hence after having initially dissected away the peritoneum from the muscle posteriorly, we are not able to fully dissect the whole area off. The preperitoneal balloon was now removed. Attention was turned back towards the intra-abdominal portion of our procedure. We were able to open the fascia out laterally and then sweep medially above the hernial defect. This large hernia sac would not be possible to fully dissect from the scrotal sac itself. Hence it was divided and allowed to retract back into the scrotal sac. We did manage to Jabaley the posterior portion to try and prevent postoperative hydrocele formation. We were now able to introduce a large 3D Bard mesh into the peritoneal cavity. This was fixed medially at the Silverio's ligament. It was then fixed out laterally after gently into the muscle in that area taking care not to hand picker any nerve areas. The peritoneum was now lifted and brought back over to reperitonealized the peritoneal cavity anterior to the mesh to try and isolate is contact with the small bowel. This having been done we deflated the pneumoperitoneum, and we could see we had good coverage of our mesh. At the end of the procedure karine were applied to the skin. The umbilical defect was approximated with a Endo Close. He was stable and sent to the recovery room. Needle sponge instrument count were correct. No drains were placed. No specimens were sent. Complications: None Transferred to: Recovery Room Condition: Good
[2021-01-04 06:53] LABS: Magnesium 1.8 mg/dL (1.8-2.4); Potassium 4.3 mmol/L (3.5-5.1)
[2021-01-04] MEDS: INSULIN -REGULAR HUMAN 50 UNIT/0.5 ML ML SQ SCH ×4 (07:30→21:00)
[2021-01-04] MEDS: D5.45NS W/KCL 40MEQ 40 MEQ/1,000 ML BAG IV SCH (08:44)
--- NOTE | 2021-01-04 11:22 | PN ---
Date of Progress Note: 01/04/2021 Subjective: The patient was admitted with acute kidney injury secondary to prerenal, secondary to GI loss. The patient had hyponatremia and hypokalemia. The patient is status post surgery yesterday, tolerated the surgery. Physical Examination: Vital Signs: Blood pressure of 138/73, pulse of 82, afebrile. Chest: Clear to auscultation. Heart: S1, S2. Regular. Abdomen: Soft, nontender. Extremity: No edema. Neuro: Alert. No focality. Laboratory Data: H and H 13.2/39.1. Sodium 139, potassium 4.2, bicarb 28, BUN 24, creatinine 1.2, G FR of 56, calcium 7.9, phosphorus of 2, magnesium 1.8, albumin of 3. Assessment And Plan: 1.Acute kidney injury secondary to prerenal, normal-sized kidney. Obstructive uropathy has been rul ed out. Recovered, resolved. 2.Hypertension, controlled, optimal. Continue current medications. 3.Hypokalemia, hypomagnesemia, status post supplement, resolved. Current Medications: The patient on include; 1.Insulin. 2.Fentanyl. 3.D5 half. JUNE/ANGUS Voice ID: [id number] Report ID: [id number]
--- NOTE | 2021-01-04 12:47 | P.PN ---
Subjective Date of Service: 01/04/21 Primary Care Provider: Dr. Villafana Chief Complaint: Small Bowel Obstruction patient is awake. Dressed, walking well. Wants to go home. Review of Systems 10-point ROS is otherwise unremarkable Physical Examination - Vital Signs Temperature: 97.4 F Blood Pressure: 175/87 Pulse: 91 Respirations: 18 Pulse Ox (%): 98 - Physical Exam General: Alert, In no apparent distress HEENT: Atraumatic, PERRLA, EOMI Neck: Supple, JVD not distended Respiratory: Clear to auscultation bilaterally, Normal air movement Cardiovascular: Regular rate/rhythm, Normal S1 S2 Gastrointestinal: Normal bowel sounds, No tenderness Musculoskeletal: No tenderness Integumentary: No rashes Neurological: Normal speech, Normal tone, Normal affect Lymphatics: No axilla or inguinal lymphadenopathy - Studies Medications List Reviewed: Yes Assessment & Plan - Problems (Diagnosis) (1) Small bowel obstruction Current Visit: Yes Status: Acute Plan: s/p repair with Dr. Suarez. Will keep him in house for a few days. 01/04 Patient is doing very well. started on soft diet Per Dr. Harrington. When he can eat with out pain and move his bowels he can go home (2) Hypertension Current Visit: Yes Status: Acute Plan: will adjust his medications as needed. Qualifiers: Hypertension type: primary hypertension Qualified Code(s): I10 - Essential (primary) hypertension Discharge Plan: Home - Code Status/Comfort Care Code Status Assessed: No Physician Review: Patient Assessed, Agree with Above Assessment and Plan Critical Care: No Time Spent Managing Pts Care (In Minutes): 20
[2021-01-04] MEDS ORDERED: HYDRALAZINE HCL 20 MG/ML VIAL IV PRN (17:22)
--- NOTE | 2021-01-04 18:42 | P.PN ---
Date of Service: 01/04/21 S: Patient feels well today, sitting on a chair, no specific complaints. Says all the pressure in his abdomen is virtually resolved. O: Abdomen is soft, hernia repair appears intact. A: Surgically stable P: Mobilize patient, encourage p.o. input. Patient may be discharged when medically stable. He can call my office to be seen next week in having staple removed, or a phone order can be given should the patient find himself in a rehab.
[2021-01-04] MEDS: HALOPERIDOL LACT 5 MG/ML INJ IV PRN (22:04)
[2021-01-04] MEDS ORDERED: LORazepam 2 MG/ML VIAL IV ONE ×2 (23:20→23:22)
[2021-01-05 05:40] LABS: Albumin 2.7 g/dL (3.4-5.0); Magnesium 1.7 mg/dL (1.8-2.4); Phosphorus 1.5 mg/dL (2.5-4.9); Potassium 3.9 mmol/L (3.5-5.1)
--- NOTE | 2021-01-05 05:59 | P.PN ---
Subjective Date of Service: 01/05/21 Primary Care Provider: Dr. Villafana Chief Complaint: Small Bowel Obstruction Subjective: Improving, Doing well (Patient had bowel movement. Tolerating current diet) Physical Examination - Vital Signs Temperature: 978 F Blood Pressure: 167/61 Pulse: 80 Respirations: 18 Pulse Ox (%): 97 - Studies Medications List Reviewed: Yes Assessment & Plan Discharge Plan: Home Plan to discharge in: 24 Hours Physician Review Additional Text: COVID: Negative CT Scan: FINDINGS: Hepatic and splenic granulomata. The pancreas and left adrenal gland are unremarkable. 4 centimeter right adrenal mass. 10 millimeter calculus right kidney. No hydronephrosis. Bilateral renal cysts. Gallstones without gallbladder wall thickening. Bilateral pulmonary nodules Marked gastric distention. Large right inguinal hernia contains small bowel. Proximal small bowel is dilated. A transition point is present within the hernia. Fluid is present within the hernia. Small left inguinal hernia contains fat. Prostate gland is mildly to moderately enlarged. IMPRESSION: A large right inguinal hernia contains small bowel. This results in a mechanical obstruction. Large amount of fluid is present within the hernia. Multiple bilateral pulmonary nodules may indicate metastatic disease or granulomas. CT chest recommended. 4 centimeter right adrenal mass is nonspecific. MRI would be helpful to rule in an adenoma. Cholelithiasis without evidence of cholecystitis Renal US: COMPARISON: January 06, 2021 cat scan FINDINGS: The right kidney measures 11 cm with a normal echotexture. 8 millimeter calculus. 1.6 centimeter cyst The left kidney measures 11 cm with a normal echotexture. 2.8 centimeter cyst Hydronephrosis is not seen. No gross abnormality of bladder. Mild enlargement of the prostate gland IMPRESSION: Nonobstructing right renal calculus Bilateral renal cysts No hydronephrosis Surgery: Date: 01/03/21 18:41 Preoperative diagnosis: Large incarcerated right inguinal hernia Postoperative diagnosis: The same Primary procedure: Laparoscopic repair of right inguinal hernia Secondary procedure: Reduction of right inguinal hernia Anesthesia: General Estimated blood loss: Less than 10 cc Specimen: None sent Operative Technique: Physical Exam: GENERAL: The patient is a well-developed, well-nourished, in no apparent distress. Alert and oriented x3. VITAL SIGNS: Reviewed HEENT: Head is normocephalic and atraumatic. Extraocular muscles are intact. Pupils are equal, round, and reactive to light and accommodation. Nares appeared normal. Mouth is well hydrated and without lesions. Mucous membranes are moist. NECK: Supple. No carotid bruits. No lymphadenopathy or thyromegaly. LUNGS: Clear to auscultation. No crackles or wheezes are heard. HEART: Regular rate and rhythm, no appreciable gallops, rubs, murmurs or extra heart sounds ABDOMEN: Soft, nontender, and nondistended. Positive bowel sounds. No hepatosplenomegaly was noted. EXTREMITIES: Without any cyanosis, clubbing, rash, lesions or peripheral edema. NEUROLOGIC: The patient is oriented to person, place and time. Strength and sensation are grossly intact. Face is symmetric. SKIN: Normal color, turgor and temperature. No ulcerations or rashes noted. 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 Patient had good bowel movement this morning. Patient doing well. Case discussed with son. Son reports patient will return back home today. We will plan for discharge today. Acute renal insufficiency: Patient back to baseline. Hypertension: Continue with metoprolol. Diabetes mellitus type 2: Continue with Accu-Cheks and sliding scale. May continue with Metformin at discharge. 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
--- NOTE | 2021-01-05 07:04 | ECHO ---
HEIGHT: 5 ft 8 in WEIGHT: 165 lb 0 oz DATE OF STUDY: 01/02/[address]: Gisel Brannon MD 2-DIMENSIONAL: YES M.MODE: YES DOPPLER: YES COLOR FLOW: YES TDS: NO PORTABLE: NO DEFINITY: NO BUBBLE STUDY: NO DIAGNOSIS: LEFT VENTRICULAR FUNCTION CARDIAC HISTORY: CATHERIZATION: NO SURGERY: NO PROSTHETIC VALVE: NO PACEMAKER: NO MEASUREMENTS (cm) DIASTOLIC (NORMALS) SYSTOLIC (NORMALS) IVSd 1.3 (0.6-1.2) LA Diam 2.6 (1.9-4.0) LVEF 45-50% LVIDd 3.7 (3.5-5.7) LVIDs 3.1 (2.0-3.5) %FS 17% LVPWd 1.3 (0.6-1.2) Ao Diam 2.7 (2.0-3.7) 2 DIMENSIONAL ASSESSMENT: RIGHT ATRIUM: NORMAL LEFT ATRIUM: NORMAL RIGHT VENTRICLE: NORMAL LEFT VENTRICLE: LOW NORMAL TRICUSPID VALVE: NORMAL MITRAL VALVE: PULMONIC VALVE: NORMAL AORTIC VALVE: NORMAL PERICARDIAL EFFUSION: SMALL AORTIC ROOT: NORMAL LEFT VENTRICULAR WALL MOTION: MILD GLOBAL HYPOKINESIS. DOPPLER/COLOR FLOW: SEE BELOW. COMMENTS: MILDLY DEPRESSED LEFT VENTRICULAR EJECTION FRACTION 45-50%. MILD GLOBAL HYPOKINESIS. MILD MITRAL REGURGITATION. SMALL PERICARDIAL EFFUSION. TECHNOLOGIST: Deondre ST
[2021-01-05] MEDS: INSULIN -REGULAR HUMAN 50 UNIT/0.5 ML ML SQ SCH (07:30)
[2021-01-05] MEDS ORDERED: METOPROLOL TAR 50 MG TAB PO SCH (09:00)
[2021-01-05] MEDS ORDERED: SERTRALINE HCL 50 MG TAB PO SCH (09:00)
[2021-01-05 09:54] VITALS: O2SAT 95
[2021-01-05 10:12] VITALS: BP 167/61; TEMP 978
--- NOTE | 2021-01-05 10:22 | P.DS ---
Admission Date: 12/29/20 Discharge Date: 01/05/21 Primary Care Provider: Dr. Villafana Disposition: ROUTINE DISCHARGE Discharge Condition: GOOD Reason for Admission: Small Bowel Obstruction Consultations: Surgery-Dr. Harrington Nephrology-Dr. Chirinos Cardiology-Dr. Jones Procedures: COVID: Negative CT Scan: FINDINGS: Hepatic and splenic granulomata. The pancreas and left adrenal gland are unremarkable. 4 centimeter right adrenal mass. 10 millimeter calculus right kidney. No hydronephrosis. Bilateral renal cysts. Gallstones without gallbladder wall thickening. Bilateral pulmonary nodules Marked gastric distention. Large right inguinal hernia contains small bowel. Proximal small bowel is dilated. A transition point is present within the hernia. Fluid is present within the hernia. Small left inguinal hernia contains fat. Prostate gland is mildly to moderately enlarged. IMPRESSION: A large right inguinal hernia contains small bowel. This results in a mechanical obstruction. Large amount of fluid is present within the hernia. Multiple bilateral pulmonary nodules may indicate metastatic disease or granulomas. CT chest recommended. 4 centimeter right adrenal mass is nonspecific. MRI would be helpful to rule in an adenoma. Cholelithiasis without evidence of cholecystitis Renal US: COMPARISON: January 06, 2021 cat scan FINDINGS: The right kidney measures 11 cm with a normal echotexture. 8 millimeter calculus. 1.6 centimeter cyst The left kidney measures 11 cm with a normal echotexture. 2.8 centimeter cyst Hydronephrosis is not seen. No gross abnormality of bladder. Mild enlargement of the prostate gland IMPRESSION: Nonobstructing right renal calculus Bilateral renal cysts No hydronephrosis Surgery: Date: 01/03/21 18:41 Preoperative diagnosis: Large incarcerated right inguinal hernia Postoperative diagnosis: The same Primary procedure: Laparoscopic repair of right inguinal hernia Secondary procedure: Reduction of right inguinal hernia Anesthesia: General Estimated blood loss: Less than 10 cc Specimen: None sent Operative Technique: Medical problem list: Small bowel mechanical obstruction secondary to large incarcerated inguinal hernia status post laparoscopic repair of right inguinal hernia Acute renal insufficiency Hypertension Diabetes mellitus type 2 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 Patient had pain 4 days ago with worsening pain. Patient not able to eat. Increased nausea and vomiting noted. CT scan revealed small bowel obstruction. Patient was admitted for treatment. Hospital Course: Patient presented with small bowel mechanical obstruction secondary to a large incarcerated inguinal hernia. Patient was seen and evaluated by surgery. Surgical intervention was required. Patient was cleared by cardiology prior to surgery. Laparoscopic repair of the right inguinal hernia was performed. Patient tolerated procedure well. Patient has done well postoperatively. Patient tolerating soft diet. Patient with bowel movement. No significant pain noted at this time. Case discussed with son. Patient will be discharged home. Patient will continue with a soft diet. No heavy lifting, pushing or pulling. Recommend follow-up with surgery within 1 week to follow-up this hospi talization. Education on postoperative care provided. Recommend follow-up with PCP within 1 week to [place] hospitalization. Patient had acute renal insufficiency likely from dehydration. Patient back to baseline. Patient with hypertension. Blood pressure stable. At discharge patient will continue with metoprolol 50 mg daily. Recommend to maintain blood pressure less than 130/80. Further adjustment can be done by his PCP. Patient with diabetes mellitus type 2. Overall stable. At discharge patient will continue with metformin 850 mg 1 pill twice daily. Recommend to maintain blood sugar less than 140 fasting and less than 200 mils. Further adjustment can be done by his PCP. Recommend to recheck hemoglobin A1c every 3 months to monitor his progress. Patient with dementia related to radiation exposure in the past. Patient will continue with his current medication Aricept 5 mg daily. Patient with depression with anxiety. At discharge patient will continue with Zoloft 25 mg daily. Son reports patient may have underlying obsessive- compulsive disorder as the patient likes to pick at his skin. Recommend PCP to further address and consider additional medication. Vital Signs/Physical Exam: Temp Pulse Resp BP Pulse Ox 978 F H 80 18 167/61 H 97 01/05/21 10:20 01/05/21 10:20 01/05/21 10:20 01/05/21 10:20 01/05/21 10:20 General: Alert, In no apparent distress, Cooperative HEENT: Atraumatic Neck: Supple Respiratory: Clear to auscultation bilaterally, Normal air movement Cardiovascular: Normal pulses, Regular rate/rhythm Gastrointestinal: Normal bowel sounds, No ascites, No masses, Other (Postoperative changes noted. No significant pain noted) Musculoskeletal: No erythema, No tenderness, No warmth Integumentary: No tenderness/swelling Neurological: Normal speech, Normal strength at 5/5 x4 extr, Normal tone Laboratory Data at Discharge: WBC 7.10 K/uL (4.3-10.9) D 01/03/21 04:01 Hgb 13.2 g/dL (13.6-17.9) L 01/03/21 04:01 Hct 39.1 % (39.6-49.0) L 01/03/21 04:01 Plt Count 277 K/uL (152-406) 01/03/21 04:01 PT 14.4 SECONDS (9.5-12.5) H 01/03/21 04:01 INR 1.25 01/03/21 04:01 APTT 25.2 SECONDS (24.3-36.9) 01/03/21 04:01 Sodium 139 mmol/L (136-145) 01/05/21 04:58 Potassium 3.9 mmol/L (3.5-5.1) 01/05/21 04:58 BUN 19 mg/dL (7-18) H 01/05/21 04:58 Creatinine 1.01 mg/dL (0.55-1.3) 01/05/21 04:58 Glucose 141 mg/dL (74-106) H 01/05/21 04:58 Uric Acid 10.5 mg/dL (3.5-7.2) H 12/30/20 06:30 Phosphorus 1.5 mg/dL (2.5-4.9) L 01/05/21 04:58 Magnesium 1.7 mg/dL (1.8-2.4) L 01/05/21 04:58 Total Bilirubin 0.5 mg/dL (0.2-1.0) 01/03/21 04:01 AST 29 U/L (15-37) 01/03/21 04:01 ALT 40 U/L (12-78) 01/03/21 04:01 Alkaline Phosphatase 73 U/L (45-117) 01/03/21 04:01 Triglycerides 173 mg/dL (<150) H 12/30/20 06:30 Cholesterol 131 mg/dL (<200) 12/30/20 06:30 HDL Cholesterol 37 mg/dL (40-60) L 12/30/20 06:30 Cholesterol/HDL Ratio 3.54 12/30/20 06:30 Lipase 105 U/L (73-393) 12/29/20 12:03 Home Medications: Donepezil [Aricept*] 1 tab PO BEDTIME 01/01/21 Metformin HCl [Glucophage*] 1 tab PO BID 01/01/21 Metoprolol Tartrate [Lopressor*] 1 tab PO DAILY 01/01/21 Sertraline [Zoloft*] 25 mg PO DAILY 01/01/21 Physician Discharge Instructions: Patient presented with small bowel mechanical obstruction secondary to a large incarcerated inguinal hernia. Patient was seen and evaluated by surgery. Surgical intervention was required. Patient was cleared by cardiology prior to surgery. Laparoscopic repair of the right inguinal hernia was performed. Patient tolerated procedure well. Patient has done well postoperatively. Patient tolerating soft diet. Patient with bowel movement. No significant pain noted at this time. Case discussed with son. Patient will be discharged home. Patient will continue with a soft diet. No heavy lifting, pushing or pulling. Recommend follow-up with surgery within 1 week to follow-up this hospitalization. Education on postoperative care provided. Recommend follow-up with PCP within 1 week to [place] hospitalization. Patient had acute renal insufficiency likely from dehydration. Patient back to baseline. Patient with hypertension. Blood pressure stable. At discharge patient will continue with metoprolol 50 mg daily. Recommend to maintain blood pressure less than 130/80. Further adjustment can be done by his PCP. Patient with diabetes mellitus type 2. Overall stable. At discharge patient will continue with metformin 850 mg 1 pill twice daily. Recommend to maintain blood sugar less than 140 fasting and less than 200 mils. Further adjustment can be done by his PCP. Recommend to recheck hemoglobin A1c every 3 months to monitor his progress. Patient with dementia related to radiation exposure in the past. Patient will continue with his current medication Aricept 5 mg daily. Patient with depression with anxiety. At discharge patient will continue with Zoloft 25 mg daily. Son reports patient may have underlying obsessive- compulsive disorder as the patient likes to pick at his skin. Recommend PCP to further address and consider additional medication. Diet: AHA Activity: Fall precautions Followup: Unknown,U [Primary Care Provider] - Time spent managing pt's care (in minutes): 55
[2021-01-05] MEDS ORDERED: DONEPEZIL HCL 5 MG TAB PO SCH (21:00)
--- NOTE | 2021-01-05 22:15 | PN ---
Date of Progress Note: 01/05/2021 Chief Complaint: Acute kidney injury, nonoliguric, prerenal azotemia. History: Patient has nonoliguric urine output. The patient had hyponatremia and hypokalemia, received replacement. The patient has history of hypophosphatemia and hypomagnesemia and is to have replacement. Review of Systems: The patient denies complaints. Physical Examination: Lungs: Clear to auscultation bilaterally. Heart: S1, S2. Abdomen: Soft, benign. Extremities: No edema. Laboratory Data: BUN 24, creatinine 1.2. Sodium 139, potassium 4.2, bicarbonate 28. Impression And Plan: 1. Acute kidney injury on chronic kidney disease. Patient has history of obstructive uropathy, but during this admission workup was done and Obstructive uropathy was ruled out. Patient has normal strive kidney. There is likely some chronic changes related to benign nephrosclerosis. Blood pressure has been well controlled. Patient will have cholesterol panel check outpatient. 2. Hypokalemia. Monitor renal panel, plan supplementation. 3. Hypomagnesemia . Monitor magnesium level and adjust supplement. EAN/ANGUS Voice ID: [id number] Report ID: [id number] PATITO
== END 2021-01-05 10:58 | disposition home or self-care (01) | DRG 350 ==
LOC: ER 11:20 → ERHOLD 18:51 → 2ND 12-30 17:21
PROVIDERS: ADMIT Hospitalist; ATTEND Family Medicine
PROC: 0YU54JZ Supplement Right Inguinal Region with Synthetic Substitute, Percutaneous Endoscopic Approach (ICD-10-PCS; principal; 2021-01-03 15:00)
DX: K40.30 Unilateral inguinal hernia, with obstruction, without gangrene, not specified as recurrent (principal); N17.0 Acute kidney failure with tubular necrosis; E87.3 Alkalosis; E87.1 Hypo-osmolality and hyponatremia; E87.2 Acidosis; E87.6 Hypokalemia; E86.0 Dehydration; E83.39 Other disorders of phosphorus metabolism; F03.90 Unspecified dementia, unspecified severity, without behavioral disturbance, psychotic disturbance, mood disturbance, and anxiety; C44.90 Unspecified malignant neoplasm of skin, unspecified; I10 Essential (primary) hypertension; E11.9 Type 2 diabetes mellitus without complications; Z92.3 Personal history of irradiation
CPT/HCPCS: 36415; 74018; 74019; 74176; 74177; 76770; 80048; 80053; 80061; 80069; 80076; 81003; 81015; 82550; 82570; 82947; 83690; 83735; 83935; 84100; 84132; 84156; 84300; 84439; 84443; 84550; 85025; 85610; 85730; 87086; 87088; 93306; 96374; 96375; 97161; 97530; 99284; J0360; J0690; J1100; J1630; J2250; J2270; J2405; J2543; J2704; J2710; J3010; J3480; J7030; J7040; J7050; Q9967; U0003

== ENCOUNTER 2021-11-19 10:29 | Emergency (ER) | payer OTHER ==
--- OUTSIDE RECORDS SUMMARY | 2021-11-19 10:32 | XMS REPORT | Continuity of Care Document ---
:1940 Author Organization [facility] t Address [address] [place] [address] Care Team Providers Name Role Phone Karel Fred Pearce Attending Clinician Unavailable Problems This patient has no known problems. Allergies, Adverse Reactions, Alerts This patient has no known allergies or adverse reactions. Medications This patient has no known medications. Procedures This patient has no known procedures. Encounters Start End Encounter Admission Attending Care Care Encounter Source Date/Time Date/Time Type Type Clinicians Facility Department ID 2021-08-03 Outpatient Vinson, STLMLC STLMLC [id number] Common 16:33:01 [facility] 2021-05-06 Outpatient Vinson, STLMLC STLMLC [id number] Common 14:15:56 [facility] 2021-05-06 Outpatient Vinson, STLMLC STLMLC [id number] Common 14:15:28 [facility] 2021-05-06 Outpatient Vinson, STLMLC STLMLC [id number] Common 12:33:31 [facility] 2021-05-06 Outpatient STLMLC STLMLC [id number] Common 12:30:08 [id number] [facility] 2021-08-19 2021-08-19 ambulatory STLMLC STLMLC [id number] Common 00:00:00 00:00:00 [facility] 2021-08-19 2021-08-19 ambulatory STLMLC STLMLC [id number] Common 00:00:00 00:00:00 [facility] 2021-08-06 2021-08-06 ambulatory STLMLC STLMLC [id number] Common 00:00:00 00:00:00 [facility] 2021-02-27 2021-02-27 ambulatory STLMLC STLMLC [id number] Common 00:00:00 00:00:00 [facility] 2021-02-23 2021-02-23 ambulatory STLMLC STLMLC [id number] Common 00:00:00 00:00:00 [facility] 2021-02-12 2021-02-12 ambulatory STLMLC STLMLC [id number] Common 00:00:00 00:00:00 [facility] 2021-01-29 2021-01-29 Outpatient STLMLC STLMLC [id number] Common 00:00:00 00:00:00 [facility] 2021-01-14 2021-01-14 Outpatient STLMLC STLMLC [id number] Common 00:00:00 00:00:00 [facility] 2021-01-06 2021-01-06 Outpatient STLMLC STLMLC [id number] Common 00:00:00 00:00:00 [facility] 2020-09-02 2020-09-02 Outpatient STLMLC STLMLC [id number] Common 00:00:00 00:00:00 [facility] 2020-09-02 2020-09-02 Outpatient STLMLC STLMLC [id number] Common 00:00:00 00:00:00 [facility] 2020-07-01 2020-07-01 Outpatient STLMLC STLMLC [id number] Common 00:00:00 00:00:00 [facility] 2020-06-05 2020-06-05 Outpatient STLMLC STLMLC [id number] Common 00:00:00 00:00:00 [facility] 2020-05-21 2020-05-21 Outpatient STLMLC STLMLC [id number] Common 00:00:00 00:00:00 [facility] Results This patient has no known results.
[2021-11-19 11:27] LABS: Absolute Lymphocytes (CBC) 1.6 K/uL (0.7-4.9); Hematocrit 37.8 % (39.6-49.0); Lymphocytes % 20.3 % (15.3-44.8); MCV 86.2 fL (80-100); MPV 6.6 fL (7.6-11.3); RBC Red Blood Cell Count 4.38 M/uL (4.33-5.43)
--- NOTE | 2021-11-19 11:43 | RAD REPORT ---
EXAM DESCRIPTION: US - Chest - 11/19/2021 11:31 am CLINICAL HISTORY: mass on left chest COMPARISON: No comparisons FINDINGS: Focused ultrasound of the patient's abnormality in the left upper chest. A hypoechoic thou gh somewhat heterogeneous hypovascular lesion measuring 2.4 x 1.4 x 2.4 cm is noted. There is the sug gestion of a small hypoechoic tongue that extends to the skin surface. Increased through transmission is noted. IMPRESSION: The palpable lesion in the left chest could be a sebaceous cyst. Suggest clinical follow -up to exclude lymphadenopathy or other mass.
[2021-11-19 11:45] LABS: Albumin 3.4 g/dL (3.4-5.0); Bilirubin Total 0.5 mg/dL (0.2-1.0); Potassium 3.9 mmol/L (3.5-5.1); Protein, Total 7.8 g/dL (6.4-8.2)
--- NOTE | 2021-11-19 12:35 | EDPHYS ---
Physician Documentation [facility] Name: Lucio Perez III Age: 81 yrs Sex: Male : 1940 Arrival Date: 11/19/2021 Time: 10:31 Bed 5 Private MD: Fred Vinson ED Physician Nestor Kirby HPI: 11/19 10:57 This 81 yrs old Male presents to ER via Ambulatory with complaints of Wound Check. pm1 10:57 Patient presents to ED for recheck of: Cyst on left side of his sternum that has been pm1 present for many years with some discharge present from it two days ago. The affected area is on the mid-sternal area. The patient has not recently seen a physician, Patient is seen by Dr. Allen at wound care. Patient has appointment in wound care on 12/09/2021. 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 Patient with history of skin cancer in is being evaluated/treated by Dr. Allen at the wound care center here. Patient was seen by wound care nurse at home and she noted discharge the cyst on his chest. According to the patient's , the wound care nurse apparently contacted Dr. Allen and patient was recommended evaluation in the ER. Discharge from wound cottage cheese like in nature. Patient negative for any fever, redness or warmth to lesion. Patient without any current discharge from lesion. Historical: - Allergies: 10:36 No Known Allergies; iw - Home Meds: 10:36 amlodipine 5 mg tab 1 tab once daily [Active]; metoprolol tartrate 50 mg Oral tab once iw daily [Active]; metformin 850 mg Oral tab 1 tab 2 times per day [Active]; donepezil 10 mg oral tab 1 tab once daily [Active]; sertraline 25 mg oral tab 1 tab once daily [Active]; - PMHx: 10:40 Diabetes mellitus; Hypertensive disorder; Anxiety; iw - PSHx: 10:40 hernia; bowel obstruction; iw - Immunization history:: Client reports receiving the 2nd dose of the Covid vaccine. - Social history:: Smoking status: Patient denies any tobacco usage or history of. ROS: 10:57 Constitutional: Negative for fever, chills, and weight loss, Cardiovascular: Negative pm1 for chest pain, palpitations, and edema, Respiratory: Negative for shortness of breath, cough, wheezing, and pleuritic chest pain, Abdomen/GI: Negative for abdominal pain, nausea, vomiting, diarrhea, and constipation, MS/Extremity: Negative for injury and deformity. 10:57 Skin: Positive for of the mid-sternal area, lump on left side of sternum with discharge two days ago. No current discharge, Negative for cellulitis, discoloration, erythema. 10:57 All other systems are negative. Exam: 10:57 Constitutional: This is a well developed, well nourished patient who is awake, alert, pm1 and in no acute distress. Head/Face: Normocephalic, atraumatic. 10:57 MS/ Extremity: Pulses equal, no cyanosis. Neurovascular intact. Full, normal range of motion. 10:57 Cardiovascular: Exam negative for acute changes, Rate: normal, Rhythm: regular, Pulses: no pulse deficits are appreciated. 10:57 Respiratory: Exam negative for acute changes, respiratory distress, shortness of breath. 10:57 Skin: Appearance: normal except for affected area, cellulitis, is not appreciated, lesion(s), noted, and can be described as raised, Circular, soft. 2 cm diameter. Negative for any redness or any discharge. Small scab at 12 o'clock present on likely noninfected sebaceous cyst, located on the left of mid-sternal area. 10:57 Neuro: Exam negative for acute changes, Orientation: is normal, Mentation: is normal, Motor: moves all fours. Vital Signs: 10:35 BP 135 / 69; Pulse 59; Resp 16; Temp 97.6; Pulse Ox 98% on R/A; iw 10:38 BP 134 / 70; Pulse 59; Resp 17 S; Temp 97.8; Pulse Ox 98% on R/A; ha1 11:52 BP 143 / 66; Pulse 56; Resp 15 S; Pulse Ox 99% on R/A; ha1 12:53 BP 133 / 69; Pulse 69; Resp 18 S; Pulse Ox 100% on R/A; ha1 MDM: 10:35 Patient medically screened. pm1 10:54 Data reviewed: vital signs. Data interpreted: Pulse oximetry: on room air is 98 %. pm1 Interpretation: normal. 12:10 Counseling: I had a detailed discussion with the patient and/or guardian regarding: the pm1 historical points, exam findings, and any diagnostic results supporting the discharge/admit diagnosis, lab results, radiology results, the need for outpatient follow up, Dr Allen, to return to the emergency department if symptoms worsen or persist or if there are any questions or concerns that arise at home, Informed patient and that I will contact Dr. Allen. 12:20 Physician consultation: Garth Allen MD was called at 12:12, was contacted at 12:20, pm1 regarding patient's condition, and will see patient in wound care and will address the patient's sebaceous cyst at that time. He would like me to discharge the patient home with antibiotics. 12:31 ED course: I called wound care center and appointment set up with wound care on 11/25 at pm1 0815. Patient and informed and will make the appointment. 11/19 10:56 Order name: CBC with Diff; Complete Time: 11:35 pm1 11/19 10:56 Order name: CMP; Complete Time: 11:48 pm1 11/19 10:56 Order name: IV Saline Lock; Complete Time: 12:12 pm1 11/19 11:32 Order name: Chest; Complete Time: 11:48 EDMS Administered Medications: 12:37 Drug: NS 0.9% 500 ml Route: IV; Rate: bolus; Site: right antecubital; ha1 12:50 Follow up: IV Status: Completed infusion ha1 Disposition: 21:01 Co-signature as Attending Physician, Nestor WALDEN was immediately available on-site ms3 in the Emergency Department for consultation in the care of the patient. . Disposition Summary: 11/19/21 12:35 Discharge Ordered Location: Home pm1 Problem: new pm1 Symptoms: have improved pm1 Condition: Stable pm1 Diagnosis - Sebaceous cyst pm1 Followup: pm1 - With: Emergency Department - When: As needed - Reason: Worsening of condition Followup: pm1 - With: Garth Allen MD - When: Next week on Saturday 11/25 at 0815 in the wound care center - Reason: Recheck today's complaints, Continuance of care, Re-evaluation by your physician Discharge Instructions: - Discharge Summary Sheet pm1 Forms: - Medication Reconciliation Form pm1 - Thank You Letter pm1 - Antibiotic Education pm1 - Prescription Opioid Use pm1 Prescriptions: - Cephalexin 500 mg Oral Capsule - take 1 capsule by ORAL route every 8 hours for 10 days; 30 capsule; Refills: 0, pm1 Product Selection Permitted Signatures: Dispatcher [employer] Mar Jo, JOSE EDUARDO RN iw Tonny Freitas, ANALYTICS LEAD ANALYTICS LEAD pm1 Nestor Kirby DO DO ms3 Autumn Aranda RN RN ha1 Corrections: (The following items were deleted from the chart) 11:32 10:57 [employer]+US.RAD.BRZ ordered. EDMS ROBERTS
--- NOTE | 2021-11-19 12:35 | ER ---
Nurse's Notes [facility] Name: Lucio Perez III Age: 81 yrs Sex: Male : 1940 Arrival Date: 11/19/2021 Time: 10:31 Bed 5 Private MD: Fred Vinson Diagnosis: Sebaceous cyst Presentation: 11/19 10:35 Chief complaint: Spouse and/or significant other states: pt has an abscess on left iw chest wall., was seen by Dr. Allen a week ago, now she noticed pus at the top, she showed the nurse and they told her to come to ER. Coronavirus screen: At this time, the client does not indicate any symptoms associated with coronavirus-19. Ebola Screen: Patient negative for fever greater than or equal to 101.5 degrees Fahrenheit, and additional compatible Ebola Virus Disease symptoms Patient denies exposure to infectious person. Patient denies travel to an Ebola-affected area in the 21 days before illness onset. No symptoms or risks identified at this time. Initial Sepsis Screen: Does the patient meet any 2 criteria? No. Patient's initial sepsis screen is negative. Does the patient have a suspected source of infection? No. Patient's initial sepsis screen is negative. Risk Assessment: Do you want to hurt yourself or someone else? Patient reports no desire to harm self or others. Onset of symptoms was November 19, 2021. 10:35 Method Of Arrival: Ambulatory iw 10:35 Acuity: NICCI 3 iw Historical: - Allergies: 10:36 No Known Allergies; iw - Home Meds: 10:36 amlodipine 5 mg tab 1 tab once daily [Active]; metoprolol tartrate 50 mg Oral tab once iw daily [Active]; metformin 850 mg Oral tab 1 tab 2 times per day [Active]; donepezil 10 mg oral tab 1 tab once daily [Active]; sertraline 25 mg oral tab 1 tab once daily [Active]; - PMHx: 10:40 Diabetes mellitus; Hypertensive disorder; Anxiety; iw - PSHx: 10:40 hernia; bowel obstruction; iw - Immunization history:: Client reports receiving the 2nd dose of the Covid vaccine. - Social history:: Smoking status: Patient denies any tobacco usage or history of. Screenin:43 Abuse screen: Denies threats or abuse. Nutritional screening: No deficits noted. tw2 Tuberculosis screening: No symptoms or risk factors identified. Fall Risk Secondary diagnosis (15 points) impaired mobility. Assessment: 10:37 General: Appears comfortable, Behavior is calm, cooperative. Pain: Denies pain. Neuro: ha1 Level of Consciousness is awake, alert, obeys commands, Oriented to person, place, time, situation. Cardiovascular: Heart tones S1 S2 present Capillary refill < 3 seconds in bilateral fingers. Respiratory: Reports the mask makes him feel SOB. denies any problems breathing w/o mask Airway is patent Respiratory effort is even, unlabored, Respiratory pattern is regular, symmetrical, Breath sounds are clear bilaterally. GI: No signs and/or symptoms were reported involving the gastrointestinal system. Bowel sounds present X 4 quads. : No signs and/or symptoms were reported regarding the genitourinary system. EENT: Reports hard hearing. Derm: Reports being diagnosed with skin cancer in 2013 and has been getting treatment ever since diagnosed. concerned about drainage from an a swollen area on his chest. pt. call his PCP and was instructed to go to ED skin appear to have bilateral lesions in all extremities. pt. states " those lesions is cancer cells". Musculoskeletal: Range of motion: intact in all extremities, Reports having weakness to walk. weakness started after starting chemotherapy couple of years ago. 11:35 Reassessment: pt. at Radiology department. ha1 11:52 Reassessment: Patient and/or family updated on plan of care and expected duration. Pain ha1 level reassessed. Patient is alert, oriented x 3, equal unlabored respirations, skin warm/dry/pink. states "his heart rate is low because I gave him his blood pressure this morning". provided education on heart rate monitoring before administering the med. and what the normal heart rate levels. pt. demonstrated understanding of education. 12:52 Reassessment: Patient and/or family updated on plan of care and expected duration. Pain ha1 level reassessed. Patient is alert, oriented x 3, equal unlabored respirations, skin warm/dry/pink. will follow up with wound care Tuesday11/25/21. Vital Signs: 10:35 BP 135 / 69; Pulse 59; Resp 16; Temp 97.6; Pulse Ox 98% on R/A; iw 10:38 BP 134 / 70; Pulse 59; Resp 17 S; Temp 97.8; Pulse Ox 98% on R/A; ha1 11:52 BP 143 / 66; Pulse 56; Resp 15 S; Pulse Ox 99% on R/A; ha1 12:53 BP 133 / 69; Pulse 69; Resp 18 S; Pulse Ox 100% on R/A; ha1 ED Course: 10:31 Patient arrived in ED. mr 10:31 Fred Vinson DO is Private Physician. mr 10:34 Tonny Freitas NP is PHCP. pm1 10:34 Nestor Kirby DO is Attending Physician. pm1 10:36 Triage completed. iw 10:36 Arm band placed on. iw 10:37 Patient has correct armband on for positive identification. Placed in gown. Bed in low ha1 position. Call light in reach. Side rails up X2. Adult w/ patient. 10:39 Inserted saline lock: 20 gauge in right antecubital area, using aseptic technique. ha1 10:56 Autumn Aranda RN is Primary Nurse. ha1 11:32 Chest In Process Unspecified. EDMS 12:34 Garth Allen MD is Referral Physician. pm1 12:55 No provider procedures requiring assistance completed. ha1 12:56 IV discontinued, intact, bleeding controlled, No redness/swelling at site. Pressure ha1 dressing applied. Administered Medications: 12:37 Drug: NS 0.9% 500 ml Route: IV; Rate: bolus; Site: right antecubital; ha1 12:50 Follow up: IV Status: Completed infusion ha1 Medication: 12:56 VIS not applicable for this client. ha1 Outcome: 12:35 Discharge ordered by MD. pm1 12:56 Discharged to home ambulatory. ha1 12:56 Condition: stable 12:56 Discharge instructions given to patient, significant other, Instructed on discharge instructions, follow up and referral plans. medication usage, Demonstrated understanding of instructions, follow-up care, medications, Prescriptions given X 1. 13:04 Patient left the ED. ha1 Signatures: Dispatcher [employer] EDWV Mónica Torres Mar Oliver RN RN iw Tonny Freitas, TERRY HEAD LOADER pm1 Flaca Ladd RN RN tw2 Autumn Aranda RN RN ha1 Corrections: (The following items were deleted from the chart) 11:52 10:37 Derm: Reports being diagnosed with skin cancer in 2013 and has been getting ha1 treatment ever since diagnosed. concerned about drainage from an abscess call his PCP and was instructed to go to ED skin appear to have bilateral lesions in all extremities. pt. states " those lesions is cancer cells". ha1 11:59 11:52 Reassessment: Patient and/or family updated on plan of care and expected ha1 duration. Pain level reassessed. Patient is alert, oriented x 3, equal unlabored respirations, skin warm/dry/pink. ha1
[2021-11-19] MEDS ORDERED: NA CHLORIDE 0.9% 500 ML ONE (12:36)
[2021-11-19 13:37] VITALS: TEMP 97.8
[2021-11-19 13:55] VITALS: BP 133/69; O2SAT 100
== END 2021-11-19 13:04 | disposition home or self-care (01) ==
LOC: ER 10:29
DX: L72.3 Sebaceous cyst (principal); E11.9 Type 2 diabetes mellitus without complications; I10 Essential (primary) hypertension
CPT/HCPCS: 85025; 36415; 80053; 76604; 99284; J7040

== ENCOUNTER → 2021-12-16 | Day surgery (SDC) | payer OTHER ==
--- NOTE | 2021-12-15 10:09 | RAD REPORT ---
EXAM DESCRIPTION: RAD - Chest Pa And Lat (2 Views) - 12/15/2021 9:57 am CLINICAL HISTORY: Pre op pending mass removals COMPARISON: None TECHNIQUE: Frontal and lateral views of the chest were obtained. FINDINGS: The lungs are clear of a suspicious mass or infiltrate. A 2-3 mm nodule is seen lateral ri ght upper lung field superimposed on the anterior right second rib is could be a small granuloma. A 3 -4 mm similar nodular density is superimposed on the right hemidiaphragm. Heart size is normal and central vasculature is within normal limits. No pleural effusion or pneumothorax seen. No acute bon y finding noted. No aortic abnormality. IMPRESSION: No acute cardiopulmonary process. Small nodules in the right lung field, detailed in the body of the report, are not likely of long-ter m significance. No specific follow-up recommendation is made for nodules less than 6 mm in size. The patient is considered high risk, follow-up imaging in 12 months could be performed.
[2021-12-15 10:48] LABS: SARS-CoV-2 Antigen Rapid Res Negative (Negative)
--- NOTE | 2021-12-15 14:30 | EKG ---
Test Date: 2021-12-15 Test Time: 09:46:34 Reel Stripper: RADHAMES MEASUREMENT RESULTS: Intervals: Rate: 61 DC: 166 QRSD: 122 QT: 444 QTc: 446 [place]: P: 35 DC: 166 QRS: -42 T: 115 INTERPRETIVE STATEMENTS: Sinus rhythm and premature ventricular complexes or fusion complexes Left axis deviation Left ventricular hypertrophy with QRS widening and repolarization abnormality Septal infarct, age undetermined Abnormal ECG Compared to ECG 10/29/2004 07:30:00 Fusion complex(es) now present Ventricular premature complex(es) now present Left-axis deviation now present Left ventricular hypertrophy now present Early repolarization now present Myocardial infarct finding now present T-wave abnormality no longer present Electronically Signed On 12-15-21 14:28:55 CDT by Guillermo Jones
[~2021-12-16] MED LIST: CEFAZOLIN SODIUM 1 GM/VIAL ONE; EPHEDRINE SULF 50 MG/ML VIAL ONE; FENTANYL CITR 100 MCG/2 ML ONE; LIDOCAINE 2% MPF 5 ML VIAL ONE; NA CHLORIDE 0.9% 1,000 ML ONE; ONDANSETRON 4 MG/2 ML VIAL ONE; propofoL 200 MG/20 ML VIAL IV ONE
--- NOTE | 2021-12-16 08:29 | P.BOP ---
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 Wide excision R arm ulcerated bleeding Sq cell [id number] Secondary procedure: 2. Wide excision R leg ulcerated bleeding Sq cell Ca 4x4cm Other procedure(s): 3. Excisional biopsy chest wall infected subQ mass 4x4cm Flexographic Press Plate Setter: Ольга Sevilla (Galdino) Estimated blood loss: <10cc Specimen: mass x 3 Findings: see dicta Anesthesia: General Complications: None Transferred to: Recovery Room Condition: Good
[2021-12-16 10:04] VITALS: BP 153/65; TEMP 97.8; O2SAT 100
--- NOTE | 2021-12-16 13:22 | DS ---
Diagnosis: Right arm, right leg bleeding squamous cell carcinoma and a chest wall infected subcutane ous mass. Procedure: Wide excision of the right arm and leg squamous cell carcinoma and excisional biopsy of c hest wall infected subcutaneous mass. Disposition: Home. Activity: As tolerated. No heavy lifting. Plan: [facility] this Tuesday or Tuesday that he comes like he does marta. SYLVIE/ANGUS Voice ID: [id number] Report ID: [id number]
--- NOTE | 2021-12-16 13:22 | OP ---
Date of Procedure: 12/16/2021 Surgeon: Garth Allen MD Supervisor Shuttle Fitting: ORLY Eisenberg. 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 Postoperative Diagnoses: The patient has history of multiple ulcerated squamous cell carcinoma all o roque his body that includes torso, upper extremities, lower extremities, and scalp, but also has a rig ht arm and right leg ulcerated with bleeding squamous cell carcinoma and also a chest wall infected s ubcutaneous mass. Procedures: 1.Wide excision of right arm ulcerated with bleeding squamous cell carcinoma, 3 x 3 cm. 2.Wide excision of right leg ulcerated with bleeding squamous cell carcinoma, 4 x 4 cm. 3.Excisional biopsy of chest wall infected subcutaneous mass, 4 x 4 cm. That area was left to close by secondary intention with packing. Estimated Blood Loss: Less than 10 mL. Specimen: Mass x3. Anesthesia: General plus local. Indication: This is the case of a male, who comes to us to the [facility] with numerous am ount of ulcerations on his skin that includes back, forearm, chest, extremities, lower extremities, u pper extremities, scalp, diagnosed with squamous cell carcinoma. He was treated at [facility], but at one point they could not do much for him, so he was sent to the [facility] for at least taking care of those open wounds. During that, he developed another problem. He has chest wall infe cted subcutaneous mass, has been in ER more than once with an abscess from that area and still not he aling. So, we offered him excisional biopsy of that infected mass at the same time. There were 2 ul cerated squamous cell carcinoma in the right upper extremity and right lower extremity, which not onl y have ulceration, but have active bleeding and becoming even more difficult to treat them, so he wan ts those lesions to be removed at the same time. The benefits, alternatives, and risks of excisional biopsy of right upper extremities, right lower extremity squamous cell carcinoma and the subcutaneou s mass on the chest fully explained, which include, but not limited to infection, bleeding, damage to adjacent structures, anesthesia complication, recurrence, OH, and even . He also understands t his may not relieve any symptoms. He might need more than one surgical intervention. He understood, signed a consent. We are trying to the chest wall mass to diminish the chance of cross contaminatio n with the rest of his lesions. Procedure In Detail: The patient was brought to the operating room, placed in supine position. Anes thesia was done without complication. Chest, right arm, and right leg were prepped and draped in the usual sterile fashion. A time-out was called. The areas were previously marked by me, the patient, and the in the holding room. So, we proceeded to first go to the chest area, made a wedge inci abundio. This goes all the way down to the subcutaneous tissue. It is an infected mass with still havi ng discharge. So, once we removed it, we decided just to leave it to close by secondary intention. So, we obtained hemostasis plus local anesthetic and packed with wet-to-dry dressing. Then, after th at, we went to the right arm region. We made a wedge incision in the skin to remove the lesions. Th is may not be curative because the patient has so many other squamous cell carcinoma, but at least co ntrol the bleeding coming from that lesions, so this was on the skin all the way down to subcutaneous tissue. The mass was excised, hemostasis was obtained and the area was left to close by secondary i ntention, packed with wet-to-dry dressing. Then, we went to the right leg region. Once again as we did on the other side, we injected some local anesthetic, did wedge incision of the skin lesion all t he way down to subcutaneous tissue. Hemostasis was obtained. Irrigation was done as the other 3 and then packed the area with wet-to-dry dressing. The patient tolerated the procedure well. The patient was sent to recovery in stable condition. Sponge count, instrument counts correct. HM/MODL Voice ID: [id number] Report ID: [id number]
== END | disposition home or self-care (01) ==
LOC: PRE 06:27
PROVIDERS: ATTEND Surgery
PROC: 0JBN0ZZ Excision of Right Lower Leg Subcutaneous Tissue and Fascia, Open Approach (ICD-10-PCS; 2021-12-16)
PROC: 0JB60ZZ Excision of Chest Subcutaneous Tissue and Fascia, Open Approach (ICD-10-PCS; 2021-12-16)
PROC: 0JBG0ZZ Excision of Right Lower Arm Subcutaneous Tissue and Fascia, Open Approach (ICD-10-PCS; principal; 2021-12-16 07:30)
DX: C44.612 Basal cell carcinoma of skin of right upper limb, including shoulder (principal); C44.712 Basal cell carcinoma of skin of right lower limb, including hip; L72.0 Epidermal cyst; E11.9 Type 2 diabetes mellitus without complications; I10 Essential (primary) hypertension; Z20.822 Contact with and (suspected) exposure to COVID-19
CPT/HCPCS: 36415; 71046; 82947; 87811; 88304; 88305; 93005; J0690; J2001; J2405; J2704; J3010; J7030

== ENCOUNTER 2022-09-15 17:19 | Emergency (ER) | payer OTHER ==
--- OUTSIDE RECORDS SUMMARY | 2022-09-15 17:24 | XMS REPORT | Continuity of Care Document ---
:1940 Author Organization [facility] t Address [address] [place] [address] [address] [place] [address] Care Team Providers Name Role Phone Fred Vinson Attending Clinician Unavailable Payers Payer Name Policy Type Policy Number Effective Date Expiration Date S [facility] C1 [id number] [facility] SUPP 00:00:00 - [facility] MEDICARE MB [id number] 2006 [facility] NOVITAS 00:00:00 - [facility] MEDICARE MB [id number] 2006 [facility] NOVITAS 00:00:00 - [facility] C1 [id number] [facility] MED[facility] SUPP 00:00:00 - [facility] MEDICARE MB [id number] 2006 [facility] NOVITAS 00:00:00 - [facility] C1 [id number] 2020 [facility] SUPP 00:00:00 - [facility] MEDICARE MB [id number] 2006 [facility] NOVITAS 00:00:00 - [facility] C1 [id number] 2020 [facility] SUPP 00:00:00 - [facility] MEDICARE MB [id number] 2006 [facility] NOVITAS 00:00:00 - [facility] C1 [id number] 2020 [facility] SUPP 00:00:00 - [facility] [employer] C1 [id number] 2020 [facility] MED[facility] SUPP 00:00:00 - [facility] MEDICARE MB [id number] 2006 [facility] NOVITAS 00:00:00 - [facility] MEDICARE MB [id number] 2006 [facility] NOVITAS 00:00:00 - [facility] C1 [id number] 2020 [facility] SUPP 00:00:00 - [facility] C1 [id number] 2020 [facility] SUPP 00:00:00 [facility] MEDICARE MB [id number] 2006 [facility] NOVITAS 00:00:00 [facility] Problems Condition Condition Condition Status Onset Resolution Last Treating Co mments Source Name Details Category Date Date Treatment Clinician Date [id number] 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 - [facility] Conduct Behavior Problem Common disorder disturbanc Spir it e [facility] [id number] Mixed Problem Common hyperlipid Spirit emia [facility] [id number] 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 [id number] Chronic Problem Commo n kidney [facility] disease, - [facility] stage 3 [facility] [id number] Memory Problem Common change Spirit - [facility] [id number] Psoriasis Problem Commo n Spirit - [facility] [id number] 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), - [facility]I unspecifie [facility] [id number] Malignant Problem Com mon melanoma, Spirit unspecifie - [facility] [id number] Dementia Problem Commo n without [facility] behavioral - [facility] disturbanc [facility] unspecie Medica l d dementia Center type [id number] Essential Problem Comm on (primary) Spirit hypertensi - CHI on [facility] [id number] Type 2 [place] [id number] diabetes [facility] mellitus - [facility] with other [facility] kidney Medical complicati Center on [id number] MIA Problem Common (generaliz Spirit ed anxiety - CHI disorder) [facility] [id number] Bilateral Problem Comm on hearing Spirit loss, - [facility] unspecifie [facility] hearing [facility] loss type Medical Center [id number] Cardiac Problem Commo n arrhythmia Spirit , - [facility]I unspecifie [facility] cardiac [facility] arrhythmia Medica l type Center [id number] Type 2 Problem Common diabetes Spirit mellitus - [facility]I with [facility] Center long-term current use of insulin [id number] 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 Social History Social Habit Start Date Stop Date Quantity Comments Source History of Tobacco Use Co mmon [facility] Sex Assigned At Com mon [facility] Smoking Status Start Date Stop Date Source Never Smoker [facility] Medications Ordered Filled Start Stop Current Ordering Indication Dosage Frequency Signature Comments Components Source Medication Medication Date Date Medication? Clinician (SIG) Name Name Sulfamethox Sulfamethox 2022- No 1{table BID Sulfametho azole-Trime azole-Trime 05-18-12 t} xazole-Tri thoprim thoprim 00:00: 00:00 methoprim 800-160 MG 800-160 MG 00 :00 800-160 MG metFORMIN metFORMIN 2021-04 No 2{table QD metFORMIN HCl ER 750 HCl ER 750 2-14 t_with_ HCl ER 750 MG MG 00:00: evening MG 00 _meal} metFORMIN metFORMIN 2021-04 No 2{table QD metFORMIN HCl ER 750 HCl ER 750 2-14 t_with_ HCl ER 750 MG MG 00:00: evening MG 00 _meal} metFORMIN metFORMIN No 1{table BID metFORMIN HCl 850 MG HCl 850 MG t_with_ HCl 850 MG a_meal} amLODIPine amLODIPine No 1{table QD amLODIPine Besylate 5 Besylate 5 t} Besylate 5 MG MG MG Lisinopril- Lisinopril- No 1{table QD Lisinopril hydroCHLORO hydroCHLORO t} -hydroCHLO thiazide thiazide ROthiazide 10-12.5 MG 10-12.5 MG 10-12.5 MG Sertraline Sertraline No 1{table QD Sertraline HCl 25 MG HCl 25 MG t} HCl 25 MG Donepezil Donepezil No 1{table QD Donepezil HCl 10 MG HCl 10 MG t_at_be HCl 10 MG dtime} Metoprolol Metoprolol No 1{table QD Metoprolol Tartrate 50 Tartrate 50 t_with_ Tartrate MG MG food} 50 MG Niacinamide Niacinamide No 1{table QD Niacinamid 500 MG 500 MG t} e 500 MG metFORMIN metFORMIN No 1{table BID metFORMIN HCl 850 MG HCl 850 MG t_with_ HCl 850 MG a_meal} Acitretin Acitretin No 1{capsu QD Acitretin 25 MG 25 MG le_with 25 MG _a_meal } Lisinopril- Lisinopril- No 1{table QD Lisinopril hydroCHLORO hydroCHLORO t} -hydroCHLO thiazide thiazide ROthiazide 10-12.5 MG 10-12.5 MG 10-12.5 MG Niacinamide Niacinamide No 1{table QD Niacinamid 500 MG 500 MG t} e 500 MG amLODIPine amLODIPine No 1{table QD amLODIPine Besylate 5 Besylate 5 t} Besylate 5 MG MG MG Donepezil Donepezil No 1{table QD Donepezil HCl 10 MG HCl 10 MG t_at_be HCl 10 MG dtime} Metoprolol Metoprolol No 1{table QD Metoprolol Tartrate 50 Tartrate 50 t_with_ Tartrate MG MG food} 50 MG Sertraline Sertraline No 1{table QD Sertraline HCl 25 MG HCl 25 MG t} HCl 25 MG metFORMIN metFORMIN No 1{table BID metFORMIN HCl 850 MG HCl 850 MG t_with_ HCl 850 MG a_meal} Acitretin Acitretin No 1{capsu QD Acitretin 25 MG 25 MG le_with 25 MG _a_meal } Donepezil Donepezil No 1{table QD Donepezil HCl 10 MG HCl 10 MG t_at_be HCl 10 MG dtime} Niacinamide Niacinamide No 1{table QD Niacinamid 500 MG 500 MG t} e 500 MG Metoprolol Metoprolol No Metoprolol Tartrate 50 Tartrate 50 Tartrate MG MG 50 MG amLODIPine amLODIPine No 1{table QD amLODIPine Besylate 5 Besylate 5 t} Besylate 5 MG MG MG metFORMIN metFORMIN No 1{table BID metFORMIN HCl 850 MG HCl 850 MG t_with_ HCl 850 MG a_meal} Sertraline Sertraline No 1{table QD Sertraline HCl 25 MG HCl 25 MG t} HCl 25 MG Acitretin Acitretin No 1{capsu QD Acitretin 25 MG 25 MG le_with 25 MG _a_meal } Niacinamide Niacinamide No 1{table QD Niacinamid 500 MG 500 MG t} e 500 MG Donepezil Donepezil No 1{table QD Donepezil HCl 10 MG HCl 10 MG t_at_be HCl 10 MG dtime} Metoprolol Metoprolol No 1{table QD Metoprolol Tartrate 50 Tartrate 50 t_with_ Tartrate MG MG food} 50 MG metFORMIN metFORMIN No 1{table BID metFORMIN HCl 850 MG HCl 850 MG t_with_ HCl 850 MG a_meal} Sertraline Sertraline No 1{table QD Sertraline HCl 25 MG HCl 25 MG t} HCl 25 MG amLODIPine amLODIPine No 1{table QD amLODIPine Besylate 5 Besylate 5 t} Besylate 5 MG MG MG Acitretin Acitretin No 1{capsu QD Acitretin 25 MG 25 MG le_with 25 MG _a_meal } Metoprolol Metoprolol No Metoprolol Tartrate 50 Tartrate 50 Tartrate MG MG 50 MG Lisinopril- Lisinopril- No 1{table QD Lisinopril hydroCHLORO hydroCHLORO t} -hydroCHLO thiazide thiazide ROthiazide 10-12.5 MG 10-12.5 MG 10-12.5 MG Niacinamide Niacinamide No 1{table QD Niacinamid 500 MG 500 MG t} e 500 MG Metoprolol Metoprolol No 1{table QD Metoprolol Tartrate 50 Tartrate 50 t_with_ Tartrate MG MG food} 50 MG Lisinopril- Lisinopril- No 1{table QD Lisinopril hydroCHLORO hydroCHLORO t} -hydroCHLO thiazide thiazide ROthiazide 10-12.5 MG 10-12.5 MG 10-12.5 MG Acitretin Acitretin No 1{capsu QD Acitretin 25 MG 25 MG le_with 25 MG _a_meal } metFORMIN metFORMIN No 1{table BID metFORMIN HCl 850 MG HCl 850 MG t_with_ HCl 850 MG a_meal} amLODIPine amLODIPine No 1{table QD amLODIPine Besylate 5 Besylate 5 t} Besylate 5 MG MG MG Metoprolol Metoprolol No Metoprolol Tartrate 50 Tartrate 50 Tartrate MG MG 50 MG Donepezil Donepezil No 1{table QD Donepezil HCl 10 MG HCl 10 MG t_at_be HCl 10 MG dtime} Sertraline Sertraline No 1{table QD Sertraline HCl 25 MG HCl 25 MG t} HCl 25 MG Sertraline Sertraline No Sertraline HCl 25 MG HCl 25 MG HCl 25 MG Acitretin Acitretin No 1{capsu QD Acitretin 25 MG 25 MG le_with 25 MG _a_meal } amLODIPine amLODIPine No amLODIPine Besylate 5 Besylate 5 Besylate 5 MG MG MG metFORMIN metFORMIN No metFORMIN HCl 850 MG HCl 850 MG HCl 850 MG Metoprolol Metoprolol No Metoprolol Tartrate 50 Tartrate 50 Tartrate MG MG 50 MG Donepezil Donepezil No Donepezil HCl 10 MG HCl 10 MG HCl 10 MG Niacinamide Niacinamide No 1{table QD Niacinamid 500 MG 500 MG t} e 500 MG Lisinopril- Lisinopril- No 1{table QD Lisinopril hydroCHLORO hydroCHLORO t} -hydroCHLO thiazide thiazide ROthiazide 10-12.5 MG 10-12.5 MG 10-12.5 MG Niacinamide Niacinamide No 1{table QD Niacinamid 500 MG 500 MG t} e 500 MG Donepezil Donepezil No Donepezil HCl 10 MG HCl 10 MG HCl 10 MG Metoprolol Metoprolol No Metoprolol Tartrate 50 Tartrate 50 Tartrate MG MG 50 MG metFORMIN metFORMIN No metFORMIN HCl 850 MG HCl 850 MG HCl 850 MG Acitretin Acitretin No 1{capsu QD Acitretin 25 MG 25 MG le_with 25 MG _a_meal } Lisinopril- Lisinopril- No 1{table QD Lisinopril hydroCHLORO hydroCHLORO t} -hydroCHLO thiazide thiazide ROthiazide 10-12.5 MG 10-12.5 MG 10-12.5 MG Sertraline Sertraline No Sertraline HCl 25 MG HCl 25 MG HCl 25 MG amLODIPine amLODIPine No amLODIPine Besylate 5 Besylate 5 Besylate 5 MG MG MG Niacinamide Niacinamide No 1{table QD Niacinamid 500 MG 500 MG t} e 500 MG Donepezil Donepezil No Donepezil HCl 10 MG HCl 10 MG HCl 10 MG Metoprolol Metoprolol No Metoprolol Tartrate 50 Tartrate 50 Tartrate MG MG 50 MG metFORMIN metFORMIN No metFORMIN HCl 850 MG HCl 850 MG HCl 850 MG Acitretin Acitretin No 1{capsu QD Acitretin 25 MG 25 MG le_with 25 MG _a_meal } Lisinopril- Lisinopril- No 1{table QD Lisinopril hydroCHLORO hydroCHLORO t} -hydroCHLO thiazide thiazide ROthiazide 10-12.5 MG 10-12.5 MG 10-12.5 MG Sertraline Sertraline No Sertraline HCl 25 MG HCl 25 MG HCl 25 MG amLODIPine amLODIPine No amLODIPine Besylate 5 Besylate 5 Besylate 5 MG MG MG Lisinopril- Lisinopril- No 1{table QD Lisinopril hydroCHLORO hydroCHLORO t} -hydroCHLO thiazide thiazide ROthiazide 10-12.5 MG 10-12.5 MG 10-12.5 MG Sertraline Sertraline No Sertraline HCl 25 MG HCl 25 MG HCl 25 MG Metoprolol Metoprolol No Metoprolol Tartrate 50 Tartrate 50 Tartrate MG MG 50 MG amLODIPine amLODIPine No amLODIPine Besylate 5 Besylate 5 Besylate 5 MG MG MG Niacinamide Niacinamide No 1{table QD Niacinamid 500 MG 500 MG t} e 500 MG metFORMIN metFORMIN No metFORMIN HCl 850 MG HCl 850 MG HCl 850 MG Acitretin Acitretin No 1{capsu QD Acitretin 25 MG 25 MG le_with 25 MG _a_meal } Donepezil Donepezil No Donepezil HCl 10 MG HCl 10 MG HCl 10 MG Lisinopril- Lisinopril- No 1{table QD Lisinopril hydroCHLORO hydroCHLORO t} -hydroCHLO thiazide thiazide ROthiazide 10-12.5 MG 10-12.5 MG 10-12.5 MG Sertraline Sertraline No Sertraline HCl 25 MG HCl 25 MG HCl 25 MG Metoprolol Metoprolol No Metoprolol Tartrate 50 Tartrate 50 Tartrate MG MG 50 MG amLODIPine amLODIPine No amLODIPine Besylate 5 Besylate 5 Besylate 5 MG MG MG Niacinamide Niacinamide No 1{table QD Niacinamid 500 MG 500 MG t} e 500 MG metFORMIN metFORMIN No metFORMIN HCl 850 MG HCl 850 MG HCl 850 MG Acitretin Acitretin No 1{capsu QD Acitretin 25 MG 25 MG le_with 25 MG _a_meal } Donepezil Donepezil No Donepezil HCl 10 MG HCl 10 MG HCl 10 MG Sertraline Sertraline No BID Sertraline HCl 25 MG HCl 25 MG HCl 25 MG Metoprolol Metoprolol No 1{table QD Metoprolol Tartrate 50 Tartrate 50 t_with_ Tartrate MG MG food} 50 MG Sertraline Sertraline No 1{table QD Sertraline HCl 50 MG HCl 50 MG t} HCl 50 MG Lisinopril- Lisinopril- No 1{table QD Lisinopril hydroCHLORO hydroCHLORO t} -hydroCHLO thiazide thiazide ROthiazide 10-12.5 MG 10-12.5 MG 10-12.5 MG Donepezil Donepezil No 1{table QD Donepezil HCl 10 MG HCl 10 MG t_at_be HCl 10 MG dtime} Donepezil Donepezil No Donepezil HCl 10 MG HCl 10 MG HCl 10 MG Niacinamide Niacinamide No 1{table QD Niacinamid 500 MG 500 MG t} e 500 MG metFORMIN metFORMIN No 1{table BID metFORMIN HCl 850 MG HCl 850 MG t_with_ HCl 850 MG a_meal} amLODIPine amLODIPine No amLODIPine Besylate 5 Besylate 5 Besylate 5 MG MG MG amLODIPine amLODIPine No 1{table QD amLODIPine Besylate 5 Besylate 5 t} Besylate 5 MG MG MG Acitretin Acitretin No 1{capsu QD Acitretin 25 MG 25 MG le_with 25 MG _a_meal } metFORMIN metFORMIN No metFORMIN HCl 850 MG HCl 850 MG HCl 850 MG Metoprolol Metoprolol No Metoprolol Tartrate 50 Tartrate 50 Tartrate MG MG 50 MG Donepezil Donepezil No 1{table QD Donepezil HCl 10 MG HCl 10 MG t_at_be HCl 10 MG dtime} metFORMIN metFORMIN No metFORMIN HCl 850 MG HCl 850 MG HCl 850 MG amLODIPine amLODIPine No 1{table QD amLODIPine Besylate 5 Besylate 5 t} Besylate 5 MG MG MG Sertraline Sertraline No 1{table QD Sertraline HCl 50 MG HCl 50 MG t} HCl 50 MG Metoprolol Metoprolol No 1{table QD Metoprolol Tartrate 50 Tartrate 50 t_with_ Tartrate MG MG food} 50 MG Niacinamide Niacinamide No 1{table QD Niacinamid 500 MG 500 MG t} e 500 MG Donepezil Donepezil No 1{table QD Donepezil HCl 10 MG HCl 10 MG t_at_be HCl 10 MG dtime} Niacinamide Niacinamide No 1{table QD Niacinamid 500 MG 500 MG t} e 500 MG Macrobid Macrobid No 1{capsu BID Macrobid 100 MG 100 MG le_with 100 MG _food} Metoprolol Metoprolol No 1{table QD Metoprolol Tartrate 50 Tartrate 50 t_with_ Tartrate MG MG food} 50 MG Sertraline Sertraline No 1{table QD Sertraline HCl 50 MG HCl 50 MG t} HCl 50 MG metFORMIN metFORMIN No metFORMIN HCl 850 MG HCl 850 MG HCl 850 MG amLODIPine amLODIPine No 1{table QD amLODIPine Besylate 5 Besylate 5 t} Besylate 5 MG MG MG Donepezil Donepezil No 1{table QD Donepezil HCl 10 MG HCl 10 MG t_at_be HCl 10 MG dtime} Macrobid Macrobid No 1{capsu BID Macrobid 100 MG 100 MG le_with 100 MG _food} amLODIPine amLODIPine No 1{table QD amLODIPine Besylate 5 Besylate 5 t} Besylate 5 MG MG MG Metoprolol Metoprolol No 1{table QD Metoprolol Tartrate 50 Tartrate 50 t_with_ Tartrate MG MG food} 50 MG Sertraline Sertraline No 1{table QD Sertraline HCl 50 MG HCl 50 MG t} HCl 50 MG metFORMIN metFORMIN No metFORMIN HCl 850 MG HCl 850 MG HCl 850 MG Niacinamide Niacinamide No 1{table QD Niacinamid 500 MG 500 MG t} e 500 MG Donepezil Donepezil No 1{table QD Donepezil HCl 10 MG HCl 10 MG t_at_be HCl 10 MG dtime} Lisinopril- Lisinopril- No 1{table QD Lisinopril hydroCHLORO hydroCHLORO t} -hydroCHLO thiazide thiazide ROthiazide 10-12.5 MG 10-12.5 MG 10-12.5 MG Metoprolol Metoprolol No Metoprolol Tartrate 50 Tartrate 50 Tartrate MG MG 50 MG amLODIPine amLODIPine No 1{table QD amLODIPine Besylate 5 Besylate 5 t} Besylate 5 MG MG MG metFORMIN metFORMIN No metFORMIN HCl 850 MG HCl 850 MG HCl 850 MG Sertraline Sertraline No 1{table QD Sertraline HCl 50 MG HCl 50 MG t} HCl 50 MG Macrobid Macrobid No 1{capsu BID Macrobid 100 MG 100 MG le_with 100 MG _food} Niacinamide Niacinamide No 1{table QD Niacinamid 500 MG 500 MG t} e 500 MG metFORMIN metFORMIN No BID metFORMIN HCl 850 MG HCl 850 MG HCl 850 MG Niacinamide Niacinamide No 1{table QD Niacinamid 500 MG 500 MG t} e 500 MG Macrobid Macrobid No 1{capsu BID Macrobid 100 MG 100 MG le_with 100 MG _food} Lisinopril- Lisinopril- No 1{table QD Lisinopril hydroCHLORO hydroCHLORO t} -hydroCHLO thiazide thiazide ROthiazide 10-12.5 MG 10-12.5 MG 10-12.5 MG Metoprolol Metoprolol No QD Metoprolol Tartrate 50 Tartrate 50 Tartrate MG MG 50 MG Sertraline Sertraline No 1{table QD Sertraline HCl 50 MG HCl 50 MG t} HCl 50 MG Donepezil Donepezil No Donepezil HCl 10 MG HCl 10 MG HCl 10 MG amLODIPine amLODIPine No 1{table QD amLODIPine Besylate 5 Besylate 5 t} Besylate 5 MG MG MG amLODIPine amLODIPine No 1{table QD amLODIPine Besylate 5 Besylate 5 t} Besylate 5 MG MG MG Metoprolol Metoprolol No QD Metoprolol Tartrate 50 Tartrate 50 Tartrate MG MG 50 MG Sertraline Sertraline No 1{table QD Sertraline HCl 25 MG HCl 25 MG t} HCl 25 MG metFORMIN metFORMIN No metFORMIN HCl 850 MG HCl 850 MG HCl 850 MG Macrobid Macrobid No 1{capsu BID Macrobid 100 MG 100 MG le_with 100 MG _food} Niacinamide Niacinamide No 1{table QD Niacinamid 500 MG 500 MG t} e 500 MG Lisinopril- Lisinopril- No 1{table QD Lisinopril hydroCHLORO hydroCHLORO t} -hydroCHLO thiazide thiazide ROthiazide 10-12.5 MG 10-12.5 MG 10-12.5 MG Donepezil Donepezil No Donepezil HCl 10 MG HCl 10 MG HCl 10 MG Acitretin Acitretin No 1{capsu QD Acitretin 25 MG 25 MG le_with 25 MG _a_meal } Metoprolol Metoprolol No 1{table QD Metoprolol Tartrate 50 Tartrate 50 t_with_ Tartrate MG MG food} 50 MG Lisinopril- Lisinopril- No 1{table QD Lisinopril Hydrochloro Hydrochloro t} -Hydrochlo thiazide thiazide rothiazide 10-12.5 MG 10-12.5 MG 10-12.5 MG Donepezil Donepezil No 1{table QD Donepezil HCl 10 MG HCl 10 MG t_at_be HCl 10 MG dtime} Niacinamide Niacinamide No 1{table QD Niacinamid 500 MG 500 MG t} e 500 MG Sertraline Sertraline No 1{table QD Sertraline HCl 25 MG HCl 25 MG t} HCl 25 MG Metformin Metformin No 1{table BID Metformin HCl 850 MG HCl 850 MG t_with_ HCl 850 MG a_meal} Acitretin Acitretin No 1{capsu QD Acitretin 25 MG 25 MG le_with 25 MG _a_meal } Metoprolol Metoprolol No 1{table QD Metoprolol Tartrate 50 Tartrate 50 t_with_ Tartrate MG MG food} 50 MG Lisinopril- Lisinopril- No 1{table QD Lisinopril Hydrochloro Hydrochloro t} -Hydrochlo thiazide thiazide rothiazide 10-12.5 MG 10-12.5 MG 10-12.5 MG Donepezil Donepezil No 1{table QD Donepezil HCl 10 MG HCl 10 MG t_at_be HCl 10 MG dtime} Niacinamide Niacinamide No 1{table QD Niacinamid 500 MG 500 MG t} e 500 MG Sertraline Sertraline No 1{table QD Sertraline HCl 25 MG HCl 25 MG t} HCl 25 MG Metformin Metformin No 1{table BID Metformin HCl 850 MG HCl 850 MG t_with_ HCl 850 MG a_meal} Acitretin Acitretin No 1{capsu QD Acitretin 25 MG 25 MG le_with 25 MG _a_meal } Metoprolol Metoprolol No 1{table QD Metoprolol Tartrate 50 Tartrate 50 t_with_ Tartrate MG MG food} 50 MG Lisinopril- Lisinopril- No 1{table QD Lisinopril hydroCHLORO hydroCHLORO t} -hydroCHLO thiazide thiazide ROthiazide 10-12.5 MG 10-12.5 MG 10-12.5 MG Donepezil Donepezil No 1{table QD Donepezil HCl 10 MG HCl 10 MG t_at_be HCl 10 MG dtime} Niacinamide Niacinamide No 1{table QD Niacinamid 500 MG 500 MG t} e 500 MG Sertraline Sertraline No 1{table QD Sertraline HCl 25 MG HCl 25 MG t} HCl 25 MG Immunizations Ordered Immunization Filled Immunization Date Status Commen ts Source Name Name FLUZONE HIGH DOSE FLUZONE HIGH DOSE 2022-02-16 Completed [facility] OVER [facility] OVER [facility] 14:18:00 - [facility] FLUZONE HIGH DOSE FLUZONE HIGH DOSE 2022-02-16 Completed [facility] OVER 65 OVER 65 14:18:00 - [facility] FLUZONE HIGH DOSE FLUZONE HIGH DOSE 2022-02-16 Completed [facility] OVER 65 OVER 65 14:18:00 - [facility] FLUZONE HIGH DOSE FLUZONE HIGH DOSE 2022-02-16 Completed [facility] OVER 65 OVER 65 14:18:00 - [facility] FLUZONE HIGH DOSE FLUZONE HIGH DOSE 2022-02-16 Completed [facility] OVER 65 OVER 65 14:18:00 [facility] FLUZONE HIGH DOSE FLUZONE HIGH DOSE 2022-02-16 Completed [facility] OVER 65 OVER 65 14:18:00 - [facility] FLUZONE HIGH DOSE FLUZONE HIGH DOSE 2022-02-16 Completed [facility] OVER 65 OVER 65 14:18:00 [facility] Moderna COVID-19 Moderna COVID-19 2021-02-27 Completed [facility] Vaccine Vaccine 14:57:00 - [facility] Moderna COVID-19 Moderna COVID-19 2021-02-27 Completed [facility] Vaccine Vaccine 14:57:00 - [facility] Moderna COVID-19 Moderna COVID-19 2021-02-27 Completed [facility] Vaccine Vaccine 14:57:00 - [facility] Moderna COVID-19 Moderna COVID-19 2021-02-27 Completed [facility] Vaccine Vaccine 14:57:00 - [facility] Moderna COVID-19 Moderna COVID-19 2021-02-27 Completed [facility] Vaccine Vaccine 14:57:00 - [facility] Moderna COVID-19 Moderna COVID-19 2021-02-27 Completed [facility] Vaccine Vaccine 14:57:00 - [facility] Moderna COVID-19 Moderna COVID-19 2021-02-27 Completed [facility] Vaccine Vaccine 14:57:00 - [facility] Moderna COVID-19 Moderna COVID-19 2021-02-27 Completed [facility] Vaccine Vaccine 14:57:00 - [facility] Moderna COVID-19 Moderna COVID-19 2021-02-27 Completed [facility] Vaccine Vaccine 14:57:00 - [facility] Moderna COVID-19 Moderna COVID-19 2021-02-27 Completed [facility] Vaccine Vaccine 14:57:00 - [facility] Moderna COVID-19 Moderna COVID-19 2021-02-27 Completed [facility] Vaccine Vaccine 14:57:00 - [facility] Moderna COVID-19 Moderna COVID-19 2021-02-27 Completed [facility] Vaccine Vaccine 14:57:00 - [facility] Moderna COVID-19 Moderna COVID-19 2021-02-27 Completed [facility] Vaccine Vaccine 14:57:00 - [facility] FluAD FluAD 2021-01-29 Completed [facility] 10:01:00 - [facility] FluAD FluAD 2021-01-29 Completed [facility] 10:01: - [facility] FluAD FluAD 2021-01-29 Completed [facility] 10:01: - [facility] FluAD FluAD 2021-01-29 Completed [facility] 10:: - [facility] FluAD FluAD 2021-01-29 Completed [facility] 10:01: - [facility] FluAD FluAD 2021-01-29 Completed [facility] 10:: - [facility] FluAD FluAD 2021-01-29 Completed [facility] 10:: - [facility] FluAD FluAD 2021-01-29 Completed [facility] 10:: - [facility] FluAD FluAD 2021-01-29 Completed [facility] 10:: - [facility] FluAD FluAD 2021-01-29 Completed [facility] 10:: - [facility] FluAD FluAD 2021-01-29 Completed [facility] 10:: - [facility] FluAD FluAD 2021-01-29 Completed [facility] 10:: - [facility] FluAD FluAD 2021-01-29 Completed [facility] 10:: - [facility] FluAD FluAD 2021-01-29 Completed [facility] 10:: - [facility] FluAD FluAD 2021-01-29 Completed [facility] 10::00 - [facility] FluAD FluAD 2021-01-29 Completed [facility] 10::00 - [facility] FluAD FluAD 2020-02-09 Completed [facility] 16:25:00 - [facility] FluAD FluAD 2020-02-09 Completed [facility] 16::00 - [facility] FluAD FluAD 2020-02-09 Completed [facility] 16::00 - [facility] FluAD FluAD 2020-02-09 Completed [facility] 16:25:00 - [facility] FluAD FluAD 2020-02-09 Completed [facility] 16::00 - [facility] FluAD FluAD 2020-02-09 Completed [facility] 16::00 - [facility] FluAD FluAD 2020-02-09 Completed [facility] 16::00 - [facility] FluAD FluAD 2020-02-09 Completed [facility] 16::00 - [facility] FluAD FluAD 2020-02-09 Completed [facility] 16:25:00 - [facility] [facility] FluAD FluAD 2020-02-09 [facility]pleted [facility]:: - [facility] FluAD FluAD 2020-02-09 Completed [facility]:: - [facility] FluAD FluAD 2020-02-09 Completed [facility]:: - [facility] FluAD FluAD 2020-02-09 Completed [facility]:: - [facility] FluAD FluAD 2020-02-09 Completed [facility]:: - [facility] FluAD FluAD 2020-02-09 Completed [facility]:: - [facility] FluAD FluAD 2020-02-09 Completed [facility]:: - [facility] FluAD FluAD 2020-02-09 Completed [facility]::00 - [facility] FluAD FluAD 2020-02-09 Completed [facility]::00 - [facility] FluAD FluAD 2020-02-09 Completed [facility]::00 - [facility] FluAD FluAD 2020-02-09 Completed [facility]::00 - [facility] Vital Signs Vital Name Observation Time Observation Value Comments Source height 2022-05-18 11:20:00 68 [in_i] [facility] weight 2022-05-18 11:20:00 162.7 [lb_av] [facility] bmi 2022-05-18 11:20:00 24.74 kg/m2 [facility] height 2022-03-16 10:00:00 68 [in_i] [facility]22-03-16 10:00:00 162.7 [lb_av] [facility] temperature 2022-03-16 10:00:00 98.1 [degF] Common [facility] bmi 2022-03-16 10:00:00 24.74 kg/m2 [facility] 2022-03-16 10:00:00 98 % [facility] respiratory rate 2022-03-16 10:00:00 17 /min Comm on [facility] blood pressure 2022-03-16 10:00:00 139 mm[Hg] Common [facility] - systolic [facility] blood pressure 2022-03-16 10:00:00 62 mm[Hg] Common [facility] - diastolic [facility] height 2022-02-16 14:00:00 68 [in_i] Common [facility] weight 2022-02-16 14:00:00 164.6 [lb_av] [facility] temperature 2022-02-16 14:00:00 97.8 [degF] [facility] bmi 2022-02-16 14:00:00 25.02 kg/m2 [facility] S [facility] oximetry 2022-02-16 14:00:00 98 % Common [facility] respiratory rate 2022-02-16 14:00:00 18 /min Comm on [facility] blood pressure 2022-02-16 14:00:00 132 mm[Hg] Common [facility] - systolic [facility] blood pressure 2022-02-16 14:00:00 61 mm[Hg] Common [facility] - diastolic [facility] height 2021-08-19 11:00:00 68 [in_i] Common [facility] weight 2021-08-19 11:00:00 163.7 [lb_av] [facility] temperature 2021-08-19 11:00:00 97.5 [degF] Common [facility] bmi 2021-08-19 11:00:00 24.89 kg/m2 [facility] oximetry 2021-08-19 11:00:00 98 % [facility] respiratory rate 2021-08-19 11:00:00 18 /min Comm on [facility] blood pressure 2021-08-19 11:00:00 133 mm[Hg] Common [facility] - systolic [facility] blood pressure 2021-08-19 11:00:00 63 mm[Hg] [facility] - diastolic [facility] height 2021-08-19 11:00:00 68 [in_i] Common [facility] weight 2021-08-19 11:00:00 163.7 [lb_av] [facility] temperature 2021-08-19 11:00:00 97.5 [degF] [facility] bmi 2021-08-19 11:00:00 24.89 kg/m2 [facility] oximetry 2021-08-19 11:00:00 98 % Common [facility] respiratory rate 2021-08-19 11:00:00 18 /min Comm on [facility] blood pressure 2021-08-19 11:00:00 133 mm[Hg] Common [facility] - systolic [facility] blood pressure 2021-08-19 11:00:00 63 mm[Hg] [facility] - [facility] height 2021-02-23 10:10:00 68 [in_i] [facility] weight 2021-02-23 10:10:00 161.6 [lb_av] Common [facility] temperature 2021-02-23 10:10:00 97.3 [degF] [facility] bmi 2021-02-23 10:10:00 24.57 kg/m2 [facility] oximetry 2021-02-23 10:10:00 96 % [facility] respiratory rate 2021-02-23 10:10:00 16 /min Comm on [facility] blood pressure 2021-02-23 10:10:00 134 mm[Hg] Common [facility] - systolic [facility] blood pressure 2021-02-23 10:10:00 72 mm[Hg] Common [facility] - diastolic [facility] height 2021-01-29 09:40:00 68 [in_i] [facility] weight 2021-01-29 09:40:00 161.3 [lb_av] [facility] temperature 2021-01-29 09:40:00 98.2 [degF] [facility] bmi 2021-01-29 09:40:00 24.52 kg/m2 [facility] S [facility] oximetry 2021-01-29 09:40:00 97 % [facility] respiratory rate 2021-01-29 09:40:00 17 /min Comm on [facility] blood pressure 2021-01-29 09:40:00 135 mm[Hg] [facility] systolic [facility] blood pressure 2021-01-29 09:40:00 76 mm[Hg] [facility] - diastolic [facility] height 2021-01-14 09:20:00 68 [in_i] [facility] weight 2021-01-14 09:20:00 160.2 [lb_av] [facility] temperature 2021-01-14 09:20:00 97.7 [degF] [facility] bmi 2021-01-14 09:20:00 24.36 kg/m2 [facility] oximetry 2021-01-14 09:20:00 97 % [facility] respiratory rate 2021-01-14 09:20:00 17 /min Comm on [facility] blood pressure 2021-01-14 09:20:00 138 mm[Hg] [facility] - [facility] blood pressure 2021-01-14 09:20:00 72 mm[Hg] [facility] - diastolic [facility] height 2020-09-02 12:00:00 68 [in_i] Common [facility] weight 2020-09-02 12:00:00 136.9 [lb_av] Common [facility] temperature 2020-09-02 12:00:00 97.4 [degF] Common [facility] bmi 2020-09-02 12:00:00 20.81 kg/m2 [facility] oximetry 2020-09-02 12:00:00 98 % Common [facility] blood pressure 2020-09-02 12:00:00 139 mm[Hg] Common [facility] - systolic [facility] blood pressure 2020-09-02 12:00:00 70 mm[Hg] [facility] - diastolic [facility] height 2020-09-02 12:20:00 68 [in_i] [facility] weight 2020-09-02 12:20:00 163.9 [lb_av] [facility] temperature 2020-09-02 12:20:00 97.4 [degF] [facility] bmi 2020-09-02 12:20:00 24.92 kg/m2 [facility] oximetry 2020-09-02 12:20:00 98 % Common [facility] respiratory rate 2020-09-02 12:20:00 16 /min Comm on [facility] blood pressure 2020-09-02 12:20:00 139 mm[Hg] Common [facility] - systolic [facility] blood pressure 2020-09-02 12:20:00 70 mm[Hg] Common [facility] - diastolic [facility] Procedures This patient has no known procedures. Encounters Start End Encounter Admission Attending Care Care Encounter Source Date/Time Date/Time Type Type Clinicians Facility Department ID 2022-05-18 Outpatient Vinson, STLMLC STLMLC [id number] Common 09:45:[id number] [facility] 2022-02-16 Outpatient Vinson, STLMLC STLMLC [id number] Common 13:40:[address] [facility] 2022-02-15 Outpatient Vinson, STLMLC STLMLC [id number] Common 08:23:[address] [facility] 2021-08-03 Outpatient Vinson, STLMLC STLMLC [id number] Common 16:33:[address] [facility] 2021-05-06 Outpatient Vinson, STLMLC STLMLC [id number] Common 14:15:[id number] [facility] 2021-05-06 Outpatient Vinson, STLMLC STLMLC [id number] Common 14:15:[id number] [facility] 2021-05-06 Outpatient Vinson, STLMLC STLMLC [id number] Common 12:33:[address] [facility] 2021-05-06 Outpatient STLMLC STLMLC [id number] Common 12:30:[id number] [facility] 2022-05-18 2022-05-18 OL DIG E/M STLMLC STLMLC [id number] Common 00:00:00 00:00:00 SVC 21+ [facility] 2022-04-27 2022-04-27 (TEL) STLMLC STLMLC [id number] Co mmon 00:00:00 00:00:00 [facility] 2022-03-18 2022-03-18 (TEL) STLMLC STLMLC [id number] Co mmon 00:00:00 00:00:00 [facility] 2022-03-18 2022-03-18 (TEL) STLMLC STLMLC [id number] Co mmon 00:00:00 00:00:00 [facility] 2022-03-16 2022-03-16 OFFICE STLMLC STLMLC [id number] Co mmon 00:00:00 00:00:00 [facility]IT [facility] ESTAB PT - [facility] LEVEL 4 [facility] 2022-03-08 2022-03-08 (TEL) STLMLC STLMLC [id number] Co mmon 00:00:00 00:00:00 [facility] 2022-02-16 2022-02-16 OFFICE STLMLC STLMLC [id number] Co mmon 00:00:00 00:00:00 [facility] ESTAB PT - [facility] LEVEL 4 [facility] 2022-02-10 2022-02-10 (TEL) STLMLC STLMLC [id number] Co mmon 00:00:00 00:00:00 [facility] 2022-01-28 2022-01-28 (TEL) STLMLC STLMLC [id number] Co mmon 00:00:00 00:00:00 [facility] 2021-08-19 2021-08-19 OFFICE STLMLC STLMLC [id number] Co mmon 00:00:00 00:00:00 [facility] ESTAB PT - [facility] LEVEL 4 [facility] 2021-08-19 2021-08-19 SUB ANNUAL STLMLC STLMLC [id number] Common 00:00:00 00:00:00 MCR [facility] WELLNESS - [facility] VISIT [facility] 2021-08-06 2021-08-06 (TEL) STLMLC STLMLC [id number] Co mmon 00:00:00 00:00:00 [facility] 2021-02-27 2021-02-27 (COVID STLMLC STLMLC [id number] Co mmon 00:00:00 00:00:00 Inj) COVID Spi rit Injection - [facility] 2021-02-23 2021-02-23 OFFICE STLMLC STLMLC [id number] Co mmon 00:00:00 00:00:00 [facility] ESTAB PT - [facility] LEVEL 4 [facility] 2021-02-12 2021-02-12 (TEL) STLMLC STLMLC [id number] Co mmon 00:00:00 00:00:00 [facility] 2021-01-29 2021-01-29 OFFICE STLMLC STLMLC [id number] Co mmon 00:00:00 00:00:00 [facility] ESTAB PT - [facility] LEVEL 4 [facility] 2021-01-14 2021-01-14 (HOSP F/U) STLC STLMLC [id number] Common 00:00:00 00:00:00 [facility] 2021-01-06 2021-01-06 (TEL) STLMLC STLMLC [id number] Co mmon 00:00:00 00:00:00 [facility] 2020-09-02 2020-09-02 SUB ANNUAL STLC STLC [id number] Common 00:00:00 00:00:00 MCR [facility] WELLNESS - VISIT [facility] 2020-09-02 2020-09-02 OFFICE [facility] STLC [id number] Co mmon 00:00:00 00:00:00 VISIT EST Spir it PT LEVEL 3 - [facility] 2020-07-01 2020-07-01 Outpatient [facility] ST[facility] [id number] Common 00:00:00 00:00:00 [facility] 2020-06-05 2020-06-05 Outpatient [facility] STLC [id number] Common 00:00:00 00:00:00 [facility] 2020-05-21 2020-05-21 Outpatient [facility] STLC [id number] Common 00:00:00 00:00:00 [facility] Results Test Description Test Time Test Comments Results Result Comments Source C difficile Toxins A+B, EIA 2022-03-17 00:00:00 Test Item Value Reference Range Interpretation Comme nts C difficile Toxins A+B, EIA (test code = 38308-2) Negative Nega tive Giardia, EIA; Ova/[id number] 00:00:00 Test Item Value Reference Range Interpretation Comments Ova + Parasite Exam (test code = Final report 00850-2) Giardia lamblia Ag, EIA (test Negative Negative code = 6412-1) Stool [id number] 00:00:00 Test Item Value Reference Range Interpretation Comments Salmonella/Shigella Screen (test Final report code = 71137-4) Campylobacter Culture (test code Final report = 6331-3) E coli Shiga Toxin EIA (test Negative Negative code = 00397-2) White Blood Cells (WBC), [id number] 00:00:00 Test Item Value Reference Range Interpretation Comments White Blood Cells (WBC), Stool Final report None Seen (test code = 31501-3)
[2022-09-15 18:28] LABS: Absolute Lymphocytes (CBC) 1.4 K/uL (0.7-4.9); Hematocrit 38.3 % (39.6-49.0); Lymphocytes % 21.7 % (15.3-44.8); MCV 86.6 fL (80-100); MPV 7.1 fL (7.6-11.3); RBC Red Blood Cell Count 4.43 M/uL (4.33-5.43)
[2022-09-15 18:42] LABS: Potassium 4.1 mEq/L (3.5-5.1)
--- NOTE | 2022-09-15 19:06 | RAD REPORT ---
EXAM DESCRIPTION: RADChest Single View09/15/2022 6:52 pm CLINICAL HISTORY: generalized weakness COMPARISON: Chest Pa And Lat (2 Views) dated 07/01/2022; Chest Pa And Lat (2 Views) dated 12/15/2021; A bdomen 1 View (KUB) dated 01/01/2021 TECHNIQUE: Portable AP view of the chest. FINDINGS: Subtle streaky opacities at the right base, could reflect atelectasis or early pneumonia. No pneumothorax or effusion. The cardiomediastinal contours are unremarkable. IMPRESSION: Subtle streaky opacities at the right lung base, could reflect atelectasis or early pneu monia.
--- NOTE | 2022-09-15 19:40 | EDPHYS ---
Physician Documentation [facility] Name: Lucio Perez III Age: 82 yrs Sex: Male : 1940 Arrival Date: 09/15/2022 Time: 17:19 Bed 6 Private MD: ED Physician Nestor Kirby HPI: 09/15 18:32 This 82 yrs old Male presents to ER via Ambulatory with complaints of Irregular Pulse, ms3 Diarrhea. 18:32 82-year-old male with past medical history of anxiety, diabetes, hypertension, dementia ms3 presents with his for decreased energy that was noted today. Patient denies pain. Patient denies nausea, vomiting. Patient's states patient was recently diagnosed with UTI and developed diarrhea and stopped taking antibiotics on Tuesday due to diarrhea. Historical: - Allergies: 17:37 No Known Allergies; iw - Home Meds: 17:37 amlodipine 5 mg tab 1 tab once daily [Active]; donepezil 10 mg Oral tab 1 tab once iw daily [Active]; metformin 850 mg Oral tab 1 tab 2 times per day [Active]; metoprolol tartrate 50 mg Oral tab once daily [Active]; sertraline 25 mg Oral tab 1 tab once daily [Active]; - PMHx: 17:37 Anxiety; diabetes mellitus; Hypertensive disorder; iw 17:44 Dementia; iw - PSHx: 17:37 bowel obstruction; hernia; iw - Social history:: Smoking status: . ROS: 18:32 Constitutional: Negative for fever, and chills. Neck: Negative for injury, pain, and ms3 swelling, Cardiovascular: Negative for chest pain, and palpitations. Respiratory: Negative for shortness of breath, cough, wheezing, and pleuritic chest pain, MS/Extremity: Negative for injury and deformity. 18:32 Abdomen/GI: Positive for diarrhea. 18:32 All other systems are negative. Exam: 18:32 Constitutional: This is a well developed, well nourished patient who is awake, alert, ms3 and in no acute distress. Head/Face: Normocephalic, atraumatic. Neck: Trachea midline, no cervical lymphadenopathy. Supple, full range of motion without nuchal rigidity, or vertebral point tenderness. No Meningismus. Chest/axilla: Normal chest wall appearance and motion. Nontender with no deformity. Cardiovascular: Regular rate and rhythm with a normal S1 and S2. No gallops, murmurs, or rubs. Normal PMI, no JVD. No pulse deficits. Respiratory: Lungs have equal breath sounds bilaterally, clear to auscultation and percussion. No rales, rhonchi or wheezes noted. No increased work of breathing, no retractions or nasal flaring. Abdomen/GI: Soft, non-tender, with normal bowel sounds. No distension or tympany. No guarding or rebound. No evidence of tenderness throughout. Skin: Warm, dry with normal turgor. Normal color with no rashes, no lesions, and no evidence of cellulitis. MS/ Extremity: Pulses equal, no cyanosis. Neurovascular intact. Full, normal range of motion. 18:37 ECG was reviewed by the Attending Physician. ms3 Vital Signs: 17:38 BP 150 / 74; Pulse 59; Resp 16; Temp 98.2; Pulse Ox 98% on R/A; Weight 79.38 kg; Height mb9 5 ft. 10 in. ; 19:03 BP 157 / 66; Pulse 60; Resp 16; Pulse Ox 99% on R/A; mb9 17:38 Body Mass Index 25.11 (79.38 kg, 177.8 cm) mb9 MDM: 17:45 Patient medically screened. ms3 18:32 Differential diagnosis: Nonspecific abd pain, Dehydration vs anemia vs electrolyte ms3 abnormality. 19:39 Data reviewed: vital signs, nurses notes, lab test result(s), EKG, radiologic studies. ms3 Consideration of Admission/Observation Escalation of care including admission/observation considered. Independent interpretation of the following test(s) in the Emergency Department EKG: See my EKG interpretation above. Historians other than the Patient: Spouse/Significant Other: Patient's . Counseling: I had a detailed discussion with the patient and/or guardian regarding: the historical points, exam findings, and any diagnostic results supporting the discharge/admit diagnosis, lab results, radiology results, the need for outpatient follow up, to return to the emergency department if symptoms worsen or persist or if there are any questions or concerns that arise at home. ED course: Discussed labs and imaging with patient's and patient. Patient to follow-up with his primary care physician in 2 to 3 days. Patient's understands and agrees with plan. Patient given prescription for doxycycline 100 mg twice daily x5 days. Return precautions discussed include worsening symptoms, or any other concerns. On reevaluation patient is alert, in no apparent distress, nontoxic-appearing, speaking full sentences, ambulatory in the emergency department. 09/15 17:46 Order name: CBC with Diff; Complete Time: 18:48 ms3 09/15 17:46 Order name: BMP; Complete Time: 18:48 ms3 09/15 18:16 Order name: Troponin High Sensitivity; Complete Time: 18:54 ms3 09/15 18:16 Order name: CXR XRAY; Complete Time: 19:16 ms3 09/15 17:46 Order name: EKG; Complete Time: 17:47 ms3 09/15 17:46 Order name: EKG - Nurse/Tech; Complete Time: 18:20 ms3 EC:37 Rate is 64 beats/min. Rhythm is regular. QRS [place] is Normal. [place] interval is normal. QRS ms3 interval is prolonged. Clinical impression: sinus rhythm with LBBB. . No change from previous ECG on July 01, 2022. Interpreted by me. Reviewed by me. Administered Medications: No medications were administered Disposition Summary: 09/15/22 19:39 Discharge Ordered Location: Home ms3 Condition: Stable ms3 Diagnosis - Other pneumonia, unspecified organism ms3 - Muscle weakness (generalized) ms3 - Anemia, unspecified ms3 - Essential (primary) hypertension ms3 Followup: ms3 - With: Private Physician - When: 1 - 2 days - Reason: Recheck today's complaints Discharge Instructions: - Discharge Summary Sheet ms3 - Anemia ms3 - Hypertension, Adult ms3 - Community-Acquired Pneumonia, Adult ms3 Forms: - Medication Reconciliation Form ms3 - Thank You Letter ms3 - Antibiotic Education ms3 - Prescription Opioid Use ms3 Prescriptions: - Doxycycline Hyclate 100 mg Oral Tablet - take 1 tablet by ORAL route every 12 hours for 5 days; 10 tablet; Refills: 0, ms3 Product Selection Permitted Signatures: Dispatcher [employer] Mar Jo RN RN Nestor Hernandez DO DO ms3
--- NOTE | 2022-09-15 19:40 | ER ---
Nurse's Notes [facility] Name: Lucio Perez III Age: 82 yrs Sex: Male : 1940 Arrival Date: 09/15/2022 Time: 17:19 Bed 6 Private MD: Diagnosis: Other pneumonia, unspecified organism;Muscle weakness (generalized);Anemia, unspecified;Essential (primary) hypertension Presentation: 09/15 17:35 Chief complaint: Spouse and/or significant other states: he was on abx for UTI and had iw to stop due to diarrhea X 2 days, today noticed that his pulse was low in the 40's then it was 51 and then 64 , he has hx of irregular heart beat and takes metoprolol Also reports fatigue. 17:35 Method Of Arrival: Ambulatory iw 17:35 Acuity: NICCI 3 iw 18:22 Coronavirus screen: Vaccine status: Patient reports receiving the 2nd dose of the covid mb9 vaccine. Ebola Screen: No symptoms or risks identified at this time. Initial Sepsis Screen: Does the patient meet any 2 criteria? No. Patient's initial sepsis screen is negative. Does the patient have a suspected source of infection? No. Patient's initial sepsis screen is negative. Risk Assessment: Do you want to hurt yourself or someone else? Patient reports no desire to harm self or others. Onset of symptoms was September 15, 2022. Historical: - Allergies: 17:37 No Known Allergies; iw - Home Meds: 17:37 amlodipine 5 mg tab 1 tab once daily [Active]; donepezil 10 mg Oral tab 1 tab once iw daily [Active]; metformin 850 mg Oral tab 1 tab 2 times per day [Active]; metoprolol tartrate 50 mg Oral tab once daily [Active]; sertraline 25 mg Oral tab 1 tab once daily [Active]; - PMHx: 17:37 Anxiety; diabetes mellitus; Hypertensive disorder; iw 17:44 Dementia; iw - PSHx: 17:37 bowel obstruction; hernia; iw - Social history:: Smoking status: . Screenin:20 [facility] ED Fall Risk Assessment (Adult) History of falling in the last 3 months, mb9 including since admission No falls in past 3 months (0 pts) Confusion or Disorientation No (0 pts) Intoxicated or Sedated No (0 pts) Impaired Gait No (0 pts) Mobility Assist Device Used No (0 pt) Altered Elimination No (0 pt) Score/Fall Risk Level 0 - 2 = Low Risk Oriented to surroundings, Maintained a safe environment, Educated pt \T\ family on fall prevention, incl call for assistance when getting out of bed. Abuse screen: Denies threats or abuse. Nutritional screening: No deficits noted. Tuberculosis screening: No symptoms or risk factors identified. Assessment: 18:21 General: Appears in no apparent distress. Behavior is calm, cooperative, appropriate mb9 for age. Pain: Denies pain. Neuro: Swanson Agitation-Sedation Scale (RASS): 0 - Alert and Calm Level of Consciousness is awake, alert, obeys commands, Oriented to person, place, time, situation, Appropriate for age. Cardiovascular: Heart tones S1 S2 present Patient's skin is warm and dry. Respiratory: Airway is patent Respiratory effort is even, unlabored, Respiratory pattern is regular, symmetrical. GI: Abdomen is flat, non-distended, Bowel sounds present X 4 quads. Abd is soft and non tender X 4 quads. Parent/caregiver reports the patient having diarrhea. : No signs and/or symptoms were reported regarding the genitourinary system. Derm: Skin is pink, warm \T\ dry. Musculoskeletal: Range of motion: intact in all extremities. 19:40 Reassessment: No changes from previously documented assessment. Patient and/or family mb9 updated on plan of care and expected duration. Pain level reassessed. Patient is alert, oriented x 3, equal unlabored respirations, skin warm/dry/pink. Vital Signs: 17:38 BP 150 / 74; Pulse 59; Resp 16; Temp 98.2; Pulse Ox 98% on R/A; Weight 79.38 kg; Height mb9 5 ft. 10 in. ; 19:03 BP 157 / 66; Pulse 60; Resp 16; Pulse Ox 99% on R/A; mb9 17:38 Body Mass Index 25.11 (79.38 kg, 177.8 cm) mb9 ED Course: 17:20 Patient arrived in ED. ts1 17:37 Triage completed. iw 17:40 Nestor Kirby DO is Attending Physician. ms3 17:43 Arm band placed on. iw 17:58 Mónica Snyder RN is Primary Nurse. mb9 18:20 BMP Sent. mb9 18:20 CBC with Diff Sent. mb9 18:20 Troponin High Sensitivity Sent. mb9 18:21 Placed in gown. Bed in low position. Call light in reach. Side rails up X 1. Client mb9 placed on continuous cardiac and pulse oximetry monitoring. NIBP monitoring applied. playground monitor on. 18:22 No provider procedures requiring assistance completed. Inserted saline lock: 20 gauge mb9 in left antecubital area, using aseptic technique. 18:22 EKG done, by ED staff, reviewed by Nestor Kirby DO. Patient maintains SpO2 saturation mb9 greater than 95% on room air. 18:53 CXR XRAY In Process Unspecified. EDMS 19:56 IV discontinued, intact, bleeding controlled, No redness/swelling at site. Pressure mb9 dressing applied. Administered Medications: No medications were administered Medication: 18:22 VIS not applicable for this client. mb9 Outcome: 19:39 Discharge ordered by . ms3 19:56 Discharged to home ambulatory. mb9 19:56 Condition: stable 19:56 Discharge instructions given to patient, Instructed on discharge instructions, follow up and referral plans. Demonstrated understanding of instructions, follow-up care, medications, Prescriptions given X 1. 19:56 Patient left the ED. mb9 Signatures: Dispatcher [employer] EDMS Mar Oliver, RN Nestor Martines DO DO ms3 Mónica Snyder, RN RN mb9 Jennyfer Steele, RICARDO PAS ts1 Corrections: (The following items were deleted from the chart) 17:43 17:35 Chief complaint: Spouse and/or significant other states: he was on abx for UTI iw and had to stop due to diarrhea X 2 days, today noticed that his pulse was low in the 40's then it was 51 and then 64 , he has hx of irregular heart beat and takes metoprolol iw 18:23 17:38 BP 150 / 74; Pulse 59bpm; Resp 16bpm; Pulse Ox 98% RA; iw mb9
[2022-09-15 20:37] VITALS: TEMP 98.2
[2022-09-15 20:43] VITALS: BP 157/66; O2SAT 99
--- NOTE | 2022-09-17 14:51 | EKG ---
Test Date: 2022-09-15 Test Time: 18:11:56 Field Applications Specialist: MB MEASUREMENT RESULTS: Intervals: Rate: 64 NE: 170 QRSD: 154 QT: 466 QTc: 480 [place]: P: 39 NE: 170 QRS: 23 T: 265 INTERPRETIVE STATEMENTS: Sinus rhythm with premature atrial complexes Left bundle branch block Abnormal ECG Compared to ECG 07/01/2022 09:32:26 Atrial premature complex(es) now present Ventricular premature complex(es) no longer present Electronically Signed On 09-17-22 14:45:01 CDT by Glenn Low
== END 2022-09-15 19:56 | disposition home or self-care (01) ==
LOC: ER 17:19
DX: J18.8 Other pneumonia, unspecified organism (principal); M62.81 Muscle weakness (generalized); I10 Essential (primary) hypertension; N39.0 Urinary tract infection, site not specified; R19.7 Diarrhea, unspecified; R53.83 Other fatigue; R00.8 Other abnormalities of heart beat; F41.9 Anxiety disorder, unspecified; E11.9 Type 2 diabetes mellitus without complications; F03.90 Unspecified dementia, unspecified severity, without behavioral disturbance, psychotic disturbance, mood disturbance, and anxiety
CPT/HCPCS: 36415; 71045; 80048; 84484; 85025; 93005; 99285

== ENCOUNTER 2023-09-13 10:18 | Emergency (ER) | payer OTHER ==
--- OUTSIDE RECORDS SUMMARY | 2023-09-13 10:23 | XMS REPORT | Continuity of Care Document ---
Author Name Unknown Address [address] [facility] [address] [place] [id number] [facility] thconnect Address [address] [facility] [address] [place] [address] Care Team Providers Care Clinical Fellow Name Role Phone Fred Vinson Attending Clinician Unavailable Payers Payer Name Policy Type Policy Number Effective Date Expirati on Date Source [place] MEDIC[place] SUPP C1 [id number] 2020 00:00:00 [facility] MEDICARE [place] [id number] 2006 00:00:00 [facility] MEDICARE [place] [id number] 2006 00:00:00 [facility] MEDICARE SUPP C1 [id number] 2020 00:00:00 [facility] MEDICARE [place] [id number] 2006 00:00:00 [facility] MEDICARE SUPP C1 [id number] 2020 00:00:00 [facility] MEDICARE [place] [id number] 2006 00:00:00 [facility] MEDICARE SUPP C1 [id number] 2020 00:00:00 [facility] MEDICARE [place] [id number] 2006 00:00:00 [facility] MEDICARE SUPP C1 [id number] 2020 00:00:00 [facility] MEDICARE SUPP C1 [id number] 2020 00:00:00 [facility] MEDICARE [place] [id number] 2006 00:00:00 [facility] MEDICARE [place] [id number] 2006 00:00:00 [facility] MEDICARE SUPP C1 [id number] 2020 00:00:00 [facility] MEDICARE SUPP C1 [id number] 2020 00:00:00 [facility] MEDICARE [place] [id number] 2006 00:00:00 [facility] Problems Condition Name Condition Details Condition Category Status Onset Date Resolution Date Last Treatment Date Treating Clinician Comments Source [id number] Right adrenal mass Problem [facility] Conduct disorder Behavior disturbanc e Problem [facility] [id number] Mixed hyperlipid emia Problem [facility] [id number] Type 2 diabetes mellitus with diabetic chronic kidney disease Problem [facility] [id number] Chronic kidney disease, stage 3 unspecifie d Problem [facility] [id number] Memory change Problem [facility] [id number] Psoriasis Problem [facility] [id number] Basal cell carcinoma (BCC), unspecifie d site Problem [facility] [id number] Malignant melanoma, unspecifie d site Problem [facility] [id number] Dementia without behavioral disturbanc e, unspecifie d dementia type Problem [facility] [id number] Essential (primary) hypertensi on Problem [facility] [id number] 87419 Type 2 diabetes mellitus with other diabetic kidney complicati on Problem [facility] [id number] MIA (generaliz ed anxiety disorder) Problem [facility] [id number] Bilateral hearing loss, unspecifie d hearing loss type Problem [facility] [id number] Cardiac arrhythmia , unspecifie d cardiac arrhythmia type Problem [facility] [id number] Type 2 diabetes mellitus with hyperglyce johanny, without long-term current use of insulin Problem [facility] [id number] Squamous cell carcinoma, scalp/neck Problem [facility] Social History Social Habit Start Date Stop Date Quantity Comments Source History of Tobacco Use [facility] Sex Assigned At [facility] Smoking Status Start Date Stop Date Source Never Smoker [facility] Medications Ordered Medication Name Filled Medication Name Start Date Stop Date Current Medication? Ordering Clinician Indication Dosage Frequency Signature (SIG) Comments Components Source Bactrim DS 800-160 MG Bactrim DS 800-160 MG 4-0 09-11 00:00: 00 No 1{table t} BID Bactrim DS 800-160 MG metFORMIN HCl 850 MG metFORMIN HCl 850 MG No 1{table t_with_ a_meal} BID metFORMIN HCl 850 MG amLODIPine Besylate 5 MG amLODIPine Besylate 5 MG No 1{table t} QD amLODIPine Besylate 5 MG Lisinopril- hydroCHLORO thiazide 10-12.5 MG Lisinopril- hydroCHLORO thiazide 10-12.5 MG No 1{table t} QD Lisinopril -hydroCHLO ROthiazide 10-12.5 MG Sertraline HCl 25 MG Sertraline HCl 25 MG No 1{table t} QD Sertraline HCl 25 MG Donepezil HCl 10 MG Donepezil HCl 10 MG No 1{table t_at_be dtime} QD Donepezil HCl 10 MG Metoprolol Tartrate 50 MG Metoprolol Tartrate 50 MG No 1{table t_with_ food} QD Metoprolol Tartrate 50 MG Niacinamide 500 MG Niacinamide 500 MG No 1{table t} QD Niacinamid e 500 MG Acitretin 25 MG Acitretin 25 MG No 1{capsu le_with _a_meal } QD Acitretin 25 MG QUEtiapine Fumarate 25 MG QUEtiapine Fumarate 25 MG No QD QUEtiapine Fumarate 25 MG Metoprolol Tartrate 25 MG Metoprolol Tartrate 25 MG No Metoprolol Tartrate 25 MG Immunizations Ordered Immunization Name Filled Immunization Name Date Status Comments Source FLUZONE HIGH DOSE OVER 65 FLUZONE HIGH DOSE OVER 65 2022-02-16 14:18:00 Completed [facility] FLUZONE HIGH DOSE OVER 65 FLUZONE HIGH DOSE OVER 65 2022-02-16 14:18:00 Completed [facility] FLUZONE HIGH DOSE OVER 65 FLUZONE HIGH DOSE OVER 65 2022-02-16 14:18:00 Completed [facility] FLUZONE HIGH DOSE OVER 65 FLUZONE HIGH DOSE OVER 65 2022-02-16 14:18:00 Completed [facility] FLUZONE HIGH DOSE OVER 65 FLUZONE HIGH DOSE OVER 65 2022-02-16 14:18:00 Completed [facility] FLUZONE HIGH DOSE OVER 65 FLUZONE HIGH DOSE OVER 65 2022-02-16 14:18:00 Completed [facility] FLUZONE HIGH DOSE OVER 65 FLUZONE HIGH DOSE OVER 65 2022-02-16 14:18:00 Completed [facility] Moderna COVID-19 Vaccine Moderna COVID-19 Vaccine 2021-02-27 14:57:00 Completed [facility] Moderna COVID-19 Vaccine Moderna COVID-19 Vaccine 2021-02-27 14:57:00 Completed [facility] Moderna COVID-19 Vaccine Moderna COVID-19 Vaccine 2021-02-27 14:57:00 Completed [facility] Moderna COVID-19 Vaccine Moderna COVID-19 Vaccine 2021-02-27 14:57:00 Completed [facility] Moderna COVID-19 Vaccine Moderna COVID-19 Vaccine 2021-02-27 14:57:00 Completed [facility] Moderna COVID-19 Vaccine Moderna COVID-19 Vaccine 2021-02-27 14:57:00 Completed [facility] Moderna COVID-19 Vaccine Moderna COVID-19 Vaccine 2021-02-27 14:57:00 Completed [facility] Moderna COVID-19 Vaccine Moderna COVID-19 Vaccine 2021-02-27 14:57:00 Completed [facility] Moderna COVID-19 Vaccine Moderna COVID-19 Vaccine 2021-02-27 14:57:00 Completed [facility] Moderna COVID-19 Vaccine Moderna COVID-19 Vaccine 2021-02-27 14:57:00 Completed [facility] Moderna COVID-19 Vaccine Moderna COVID-19 Vaccine 2021-02-27 14:57:00 Completed [facility] Moderna COVID-19 Vaccine Moderna COVID-19 Vaccine 2021-02-27 14:57:00 Completed [facility] Moderna COVID-19 Vaccine Moderna COVID-19 Vaccine 2021-02-27 14:57:00 Completed [facility] FluAD FluAD 2021-01-29 10:01:00 Completed [facility] FluAD FluAD 2021-01-29 10:01:00 Completed [facility] FluAD FluAD 2021-01-29 10:01:00 Completed [facility] FluAD FluAD 2021-01-29 10:01:00 Completed [facility] FluAD FluAD 2021-01-29 10:01:00 Completed [facility] FluAD FluAD 2021-01-29 10:01:00 Completed [facility] FluAD FluAD 2021-01-29 10:01:00 Completed [facility] FluAD FluAD 2021-01-29 10:01:00 Completed [facility] FluAD FluAD 2021-01-29 10:01:00 Completed [facility] FluAD FluAD 2021-01-29 10:01:00 Completed [facility] FluAD FluAD 2021-01-29 10:01:00 Completed [facility] FluAD FluAD 2021-01-29 10:01:00 Completed [facility] FluAD FluAD 2021-01-29 10:01:00 Completed [facility] FluAD FluAD 2021-01-29 10:01:00 Completed [facility] FluAD FluAD 2021-01-29 10:01:00 Completed [facility] FluAD FluAD 2021-01-29 10:01:00 Completed [facility] FluAD FluAD 2020-02-09 16:25:00 Completed [facility] FluAD FluAD 2020-02-09 16:25:00 Completed [facility] FluAD FluAD 2020-02-09 16:25:00 Completed [facility] FluAD FluAD 2020-02-09 16:25:00 Completed [facility] FluAD FluAD 2020-02-09 16:25:00 Completed [facility] FluAD FluAD 2020-02-09 16:25:00 Completed [facility] FluAD FluAD 2020-02-09 16:25:00 Completed [facility] FluAD FluAD 2020-02-09 16:25:00 Completed [facility] FluAD FluAD 2020-02-09 16:25:00 Completed [facility] FluAD FluAD 2020-02-09 16:25:00 Completed [facility] FluAD FluAD 2020-02-09 16:25:00 Completed [facility] FluAD FluAD 2020-02-09 16:25:00 Completed [facility] FluAD FluAD 2020-02-09 16:25:00 Completed [facility] FluAD FluAD 2020-02-09 16:25:00 Completed [facility] FluAD FluAD 2020-02-09 16:25:00 Completed [facility] FluAD FluAD 2020-02-09 16:25:00 Completed [facility] FluAD FluAD 2020-02-09 16:25:00 Completed [facility] FluAD FluAD 2020-02-09 16:25:00 Completed [facility] FluAD FluAD 2020-02-09 16:25:00 Completed [facility] FluAD FluAD 2020-02-09 16:25:00 Completed [facility] Moderna COVID-19 Vaccine Moderna COVID-19 Vaccine Unknown Completed [facility] FluAD FluAD Unknown Completed [facility] FluAD FluAD Unknown Completed [facility] FLUZONE HIGH DOSE OVER 65 FLUZONE HIGH DOSE OVER 65 Unknown Completed [facility] Moderna COVID-19 Vaccine Moderna COVID-19 Vaccine Unknown Completed [facility] FluAD FluAD Unknown Completed [facility] FluAD FluAD Unknown Completed [facility] FLUZONE HIGH DOSE OVER 65 FLUZONE HIGH DOSE OVER 65 Unknown Completed [facility] FLUZONE HIGH DOSE OVER 65 FLUZONE HIGH DOSE OVER 65 Unknown Completed [facility] Moderna COVID-19 Vaccine Moderna COVID-19 Vaccine Unknown Completed [facility] FluAD FluAD Unknown Completed [facility] FluAD FluAD Unknown Completed [facility] FluAD [place] FluAD [place] Unknown Completed [facility] Moderna COVID-19 Vaccine Moderna COVID-19 Vaccine Unknown Completed [facility] FluAD FluAD Unknown Completed [facility] FluAD FluAD Unknown Completed [facility] FLUZONE HIGH DOSE OVER 65 FLUZONE HIGH DOSE OVER 65 Unknown Completed [facility] FluAD Quad [place] FluAD Quad [place] Unknown Completed [facility] Moderna COVID-19 Vaccine Moderna COVID-19 Vaccine Unknown Completed [facility] FluAD FluAD Unknown Completed [facility] FluAD FluAD Unknown Completed [facility] FLUZONE HIGH DOSE OVER 65 FLUZONE HIGH DOSE OVER 65 Unknown Completed [facility] FluAD [place] FluAD Quad [place] Unknown Completed [facility] Moderna COVID-19 Vaccine Moderna COVID-19 Vaccine Unknown Completed [facility] FluAD FluAD Unknown Completed [facility] FluAD FluAD Unknown Completed [facility] FLUZONE HIGH DOSE OVER 65 FLUZONE HIGH DOSE OVER 65 Unknown Completed [facility] FluAD [place] FluAD Quad [place] Unknown Completed [facility] Moderna COVID-19 Vaccine Moderna COVID-19 Vaccine Unknown Completed [facility] FluAD FluAD Unknown Completed [facility] FluAD FluAD Unknown Completed [facility] FLUZONE HIGH DOSE OVER 65 FLUZONE HIGH DOSE OVER 65 Unknown Completed [facility] FluAD Quad [place] FluAD Quad [place] Unknown Completed [facility] Moderna COVID-19 Vaccine Moderna COVID-19 Vaccine Unknown Completed [facility] FluAD FluAD Unknown Completed [facility] FluAD FluAD Unknown Completed [facility] FLUZONE HIGH DOSE OVER 65 FLUZONE HIGH DOSE OVER 65 Unknown Completed [facility] FluAD [place] FluAD Quad [place] Unknown Completed [facility] Moderna COVID-19 Vaccine Moderna COVID-19 Vaccine Unknown Completed [facility] FluAD FluAD Unknown Completed [facility] FluAD FluAD Unknown Completed [facility] FLUZONE HIGH DOSE OVER 65 FLUZONE HIGH DOSE OVER 65 Unknown Completed [facility] FluAD [place] FluAD Quad [place] Unknown Completed [facility] Moderna COVID-19 Vaccine Moderna COVID-19 Vaccine Unknown Completed [facility] FluAD FluAD Unknown Completed [facility] FluAD FluAD Unknown Completed [facility] FLUZONE HIGH DOSE OVER 65 FLUZONE HIGH DOSE OVER 65 Unknown Completed [facility] FluAD [place] FluAD Quad SD Unknown Completed [facility] Moderna COVID-19 Vaccine Moderna COVID-19 Vaccine Unknown Completed [facility] FluAD FluAD Unknown Completed [facility] FluAD FluAD Unknown Completed [facility] FLUZONE HIGH DOSE OVER 65 FLUZONE HIGH DOSE OVER 65 Unknown Completed [facility] FluAD [place] FluAD Quad SD Unknown Completed [facility] Moderna COVID-19 Vaccine Moderna COVID-19 Vaccine Unknown Completed [facility] FluAD FluAD Unknown Completed [facility] FluAD FluAD Unknown Completed [facility] FLUZONE HIGH DOSE OVER 65 FLUZONE HIGH DOSE OVER 65 Unknown Completed [facility] FluAD Quad [place] FluAD Quad SD Unknown Completed [facility] Moderna COVID-19 Vaccine Moderna COVID-19 Vaccine Unknown Completed [facility] FluAD FluAD Unknown Completed [facility] FluAD FluAD Unknown Completed [facility] FLUZONE HIGH DOSE OVER 65 FLUZONE HIGH DOSE OVER 65 Unknown Completed [facility] FluAD Quad SD FluAD Quad SD Unknown Completed [facility] Moderna COVID-19 Vaccine Moderna COVID-19 Vaccine Unknown Completed [facility] FluAD FluAD Unknown Completed [facility] FluAD FluAD Unknown Completed [facility] FLUZONE HIGH DOSE OVER 65 FLUZONE HIGH DOSE OVER 65 Unknown Completed [facility] Fluad (aIIV4) - SDS - 0.5mL Fluad (aIIV4) - SDS - 0.5mL Unknown Completed [facility] Moderna COVID-19 Vaccine Moderna COVID-19 Vaccine Unknown Completed [facility] FluAD FluAD Unknown Completed [facility] FluAD FluAD Unknown Completed [facility] FLUZONE HIGH DOSE OVER 65 FLUZONE HIGH DOSE OVER 65 Unknown Completed [facility] Fluad (aIIV4) - SDS - 0.5mL Fluad (aIIV4) - SDS - 0.5mL Unknown Completed [facility] Moderna COVID-19 Vaccine Moderna COVID-19 Vaccine Unknown Completed [facility] FluAD FluAD Unknown Completed [facility] FluAD FluAD Unknown Completed [facility] FLUZONE HIGH DOSE OVER 65 FLUZONE HIGH DOSE OVER 65 Unknown Completed [facility] Fluad (aIIV4) - SDS - 0.5mL Fluad (aIIV4) - SDS - 0.5mL Unknown Completed [facility] Moderna COVID-19 Vaccine Moderna COVID-19 Vaccine Unknown Completed [facility] FluAD FluAD Unknown Completed [facility] FluAD FluAD Unknown Completed [facility] FLUZONE HIGH DOSE OVER 65 FLUZONE HIGH DOSE OVER 65 Unknown Completed [facility] Vital Signs Vital Name Observation Time Observation Value Comments S ource height 2023-02-11 08:40:00 68 [in_i] Commo n [facility] weight 2023-02-11 08:40:00 149.8 [lb_av] Co mmon [facility] temperature 2023-02-11 08:40:00 98.6 [degF] Com mon [facility] bmi 2023-02-11 08:40:00 22.77 kg/m2 Comm on [facility] oximetry 2023-02-11 08:40:00 98 % Commo n [facility] respiratory rate 2023-02-11 08:40:00 16 /min Common [facility] blood pressure systolic 2023-02-11 08:40:00 132 mm[Hg[facility] blood pressure diastolic 2023-02-11 08:40:00 67 mm[Hg] [facility] height 2022-10-07 09:00:00 68 [in_i] Commo n [facility] weight 2022-10-07 09:00:00 160 [lb_av] Comm on [facility] bmi 2022-10-07 09:00:00 24.33 kg/m2 Comm on [facility] height 2022-09-20 13:00:00 68 [in_i] Commo n [facility] weight 2022-09-20 13:00:00 160 [lb_av] Comm on [facility] temperature 2022-09-20 13:00:00 97.4 [degF] Com mon [facility] bmi 2022-09-20 13:00:00 24.33 kg/m2 Comm on [facility] blood pressure systolic 2022-09-20 13:00:00 131 mm[Hg] Common [facility] blood pressure diastolic 2022-09-20 13:00:00 76 mm[Hg] [facility] height 2022-08-17 13:00:00 68 [in_i] Commo n [facility] weight 2022-08-17 13:00:00 162.2 [lb_av] Co mmon [facility] temperature 2022-08-17 13:00:00 97.3 [degF] Com mon [facility] bmi 2022-08-17 13:00:00 24.66 kg/m2 Comm on [facility] oximetry 2022-08-17 13:00:00 98 % Commo n [facility] respiratory rate 2022-08-17 13:00:00 17 /min Common [facility] blood pressure systolic 2022-08-17 13:00:00 132 mm[Hg] [facility] blood pressure diastolic 2022-08-17 13:00:00 70 mm[Hg] [facility] height 2022-08-17 13:00:00 68 [in_i] Commo n [facility] weight 2022-08-17 13:00:00 162.2 [lb_av] Co [facility] temperature 2022-08-17 13:00:00 97.3 [degF] Com [facility] bmi 2022-08-17 13:00:00 24.66 kg/m2 Comm on [facility] oximetry 2022-08-17 13:00:00 98 % Commo n [facility] respiratory rate 2022-08-17 13:00:00 17 /min Common [facility] blood pressure systolic 2022-08-17 13:00:00 132 mm[Hg] [facility] blood pressure diastolic 2022-08-17 13:00:00 70 mm[Hg] [facility] height 2022-05-18 11:20:00 68 [in_i] Commo n [facility] weight 2022-05-18 11:20:00 162.7 [lb_av] Co on [facility] bmi 2022-05-18 11:20:00 24.74 kg/m2 Comm on [facility] height 2022-03-16 10:00:00 68 [in_i] Commo n [facility] weight 2022-03-16 10:00:00 162.7 [lb_av] Co [facility] temperature 2022-03-16 10:00:00 98.1 [degF] Com mon [facility] bmi 2022-03-16 10:00:00 24.74 kg/m2 Comm on [facility] oximetry 2022-03-16 10:00:00 98 % Commo n [facility] respiratory rate 2022-03-16 10:00:00 17 /min Common [facility] blood pressure systolic 2022-03-16 10:00:00 139 mm[Hg] [facility] blood pressure diastolic 2022-03-16 10:00:00 62 mm[Hg] [facility] height 2022-02-16 14:00:00 68 [in_i] Commo n [facility] weight 2022-02-16 14:00:00 164.6 [lb_av] Co on [facility] temperature 2022-02-16 14:00:00 97.8 [degF] Com [facility] bmi 2022-02-16 14:00:00 25.02 kg/m2 Comm on [facility] oximetry 2022-02-16 14:00:00 98 % Commo n [facility] respiratory rate 2022-02-16 14:00:00 18 /min Common [facility] blood pressure systolic 2022-02-16 14:00:00 132 mm[Hg] [facility] blood pressure diastolic 2022-02-16 14:00:00 61 mm[Hg] [facility] height 2021-08-19 11:00:00 68 [in_i] Commo n [facility] weight 2021-08-19 11:00:00 163.7 [lb_av] Co mmon [facility] temperature 2021-08-19 11:00:00 97.5 [degF] Com [facility] bmi 2021-08-19 11:00:00 24.89 kg/m2 Comm on [facility] oximetry 2021-08-19 11:00:00 98 % Commo n [facility] respiratory rate 2021-08-19 11:00:00 18 /min Common [facility] blood pressure systolic 2021-08-19 11:00:00 133 mm[Hg] [facility] blood pressure diastolic 2021-08-19 11:00:00 63 mm[Hg] [facility] height 2021-08-19 11:00:00 68 [in_i] Commo n [facility] weight 2021-08-19 11:00:00 163.7 [lb_av] Co mmon [facility] temperature 2021-08-19 11:00:00 97.5 [degF] Com [facility] bmi 2021-08-19 11:00:00 24.89 kg/m2 Comm on [facility] oximetry 2021-08-19 11:00:00 98 % Commo n [facility] respiratory rate 2021-08-19 11:00:00 18 /min [facility] blood pressure systolic 2021-08-19 11:00:00 133 mm[Hg] [facility] blood pressure diastolic 2021-08-19 11:00:00 63 mm[Hg] [facility] height 2021-02-23 10:10:00 68 [in_i] Commo n [facility] weight 2021-02-23 10:10:00 161.6 [lb_av] Co mmon [facility] temperature 2021-02-23 10:10:00 97.3 [degF] Com [facility] bmi 2021-02-23 10:10:00 24.57 kg/m2 Comm on [facility] oximetry 2021-02-23 10:10:00 96 % Commo n [facility] respiratory rate 2021-02-23 10:10:00 16 /min [facility] blood pressure systolic 2021-02-23 10:10:00 134 mm[Hg] Common [facility] blood pressure diastolic 2021-02-23 10:10:00 72 mm[Hg] [facility] height 2021-01-29 09:40:00 68 [in_i] Commo n [facility] weight 2021-01-29 09:40:00 161.3 [lb_av] Co on [facility] temperature 2021-01-29 09:40:00 98.2 [degF] Com mon [facility] bmi 2021-01-29 09:40:00 24.52 kg/m2 Comm on [facility] oximetry 2021-01-29 09:40:00 97 % Commo n [facility] respiratory rate 2021-01-29 09:40:00 17 /min [facility] blood pressure systolic 2021-01-29 09:40:00 135 mm[Hg] [facility] blood pressure diastolic 2021-01-29 09:40:00 76 mm[Hg] Common [facility] height 2021-01-14 09:20:00 68 [in_i] Commo n [facility] weight 2021-01-14 09:20:00 160.2 [lb_av] Co mmon [facility] temperature 2021-01-14 09:20:00 97.7 [degF] Com mon [facility] bmi 2021-01-14 09:20:00 24.36 kg/m2 Comm on [facility] oximetry 2021-01-14 09:20:00 97 % Commo n [facility] respiratory rate 2021-01-14 09:20:00 17 /min [facility] blood pressure systolic 2021-01-14 09:20:00 138 mm[Hg] Common [facility] blood pressure diastolic 2021-01-14 09:20:00 72 mm[Hg] Common [facility] height 2020-09-02 12:00:00 68 [in_i] Commo n [facility] weight 2020-09-02 12:00:00 136.9 [lb_av] Co [facility] temperature 2020-09-02 12:00:00 97.4 [degF] Com mon [facility] bmi 2020-09-02 12:00:00 20.81 kg/m2 Comm on [facility] oximetry 2020-09-02 12:00:00 98 % Commo n [facility] blood pressure systolic 2020-09-02 12:00:00 139 mm[Hg] [facility] blood pressure diastolic 2020-09-02 12:00:00 70 mm[Hg] [facility] height 2020-09-02 12:20:00 68 [in_i] Commo n [facility] weight 2020-09-02 12:20:00 163.9 [lb_av] Co on [facility] temperature 2020-09-02 12:20:00 97.4 [degF] Com mon [facility] bmi 2020-09-02 12:20:00 24.92 kg/m2 Comm on [facility] oximetry 2020-09-02 12:20:00 98 % Commo n [facility] respiratory rate 2020-09-02 12:20:00 16 /min [facility] blood pressure systolic 2020-09-02 12:20:00 139 mm[Hg] Common [facility] blood pressure diastolic 2020-09-02 12:20:00 70 mm[Hg] [facility] Encounters Start Date/Time End Date/Time Encounter Type Admission Type Attending [facility] Care Facility Care Department Encounter ID Source 2022-09-28 11:26[id number] 2022-09-17 11:08:01 Outpatient Vinson, Fred [facility]C [facility] [id number] [facility] 2022-05-18 09:45:01 Outpatient Vinson, Fred [facility]C [facility] [id number] [facility] 2022-02-16 13:40:01 Outpatient Vinson, Fred STLC ST[facility] [id number] [facility] 2022-02-15 08:23:01 Outpatient Vinson, Fred [facility] [id number] [facility] 2021-08-03 16:33:01 Outpatient Vinson, Fred [facility] ST[facility] [id number] [facility] 2021-05-06 14:15:56 Outpatient Vinson, Fred [facility] [id number] [facility] 2021-05-06 14:15:28 Outpatient Vinson, Fred STLC [facility] [id number] [facility] 2021-05-06 12:33:31 Outpatient Vinson, Fred [facility]C [facility] [id number] [facility] 2021-05-06 12:30:08 Outpatient [facility] [id number] [facility] 2023-09-09 00:00:00 2023-09-09 00:00:00 (TEL) [facility] [id number] [facility] 2023-09-01 00:00:00 2023-09-01 00:00:00 (TEL) [facility]C [facility] [id number] [facility] 2023-02-17 00:00:00 2023-02-17 00:00:00 (TEL) [facility]C [facility] [id number] [facility] 2023-02-11 00:00:00 2023-02-11 00:00:00 OFFICE VISIT ESTAB PT LEVEL 4 [facility] [id number] [facility] 2022-11-01 00:00:00 2022-11-01 00:00:00 (TEL) [facility] [id number] [facility] 2022-10-07 00:00:00 2022-10-07 00:00:00 OFFICE VISIT ESTAB PT LEVEL 3 [facility] [id number] [facility] 2022-10-06 00:00:00 2022-10-06 00:00:00 (TEL) STLMLC ST[facility]C [id number] [facility] 2022-09-20 00:00:00 2022-09-20 00:00:00 OFFICE VISIT ESTAB PT LEVEL 4 [facility]C [facility] [id number] [facility] 2022-09-15 00:00:00 2022-09-15 00:00:00 (TEL) STLMLC ST[facility]C [id number] [facility] 2022-09-07 00:00:00 2022-09-07 00:00:00 (TEL) STLMLC ST[facility]C [id number] [facility] 2022-09-02 00:00:00 2022-09-02 00:00:00 (TEL) STLMLC [facility]C [id number] [facility] 2022-08-25 00:00:00 2022-08-25 00:00:00 (TEL) STLMLC [facility] [id number] [facility] 2022-08-17 00:00:00 2022-08-17 00:00:00 OFFICE VISIT ESTAB PT LEVEL 4 [facility] [id number] [facility] 2022-08-17 00:00:00 2022-08-17 00:00:00 SUB ANNUAL [facility] WELLNESS VISIT STLMLC STLMLC [id number] [facility] 2022-08-16 00:00:00 2022-08-16 00:00:00 (TEL) STLMLC STL[facility]C [id number] [facility] 2022-06-21 00:00:00 2022-06-21 00:00:00 (TEL) STLMLC ST[facility]C [id number] [facility] 2022-05-27 00:00:00 2022-05-27 00:00:00 (TEL) STLMLC ST[facility]C [id number] [facility] 2022-05-18 00:00:00 2022-05-18 00:00:00 OL DIG E/M SVC 21+ MIN STLMLC STLMLC [id number] [facility] 2022-05-18 00:00:00 2022-05-18 00:00:00 (TEL) STLMLC STL[facility]C [id number] [facility] 2022-04-27 00:00:00 2022-04-27 00:00:00 (TEL) STLMLC ST[facility]C [id number] [facility] 2022-03-18 00:00:00 2022-03-18 00:00:00 (TEL) STLMLC [facility] [id number] [facility] 2022-03-18 00:00:00 2022-03-18 00:00:00 (TEL) STLMLC ST[facility]C [id number] [facility] 2022-03-16 00:00:00 2022-03-16 00:00:00 OFFICE VISIT ESTAB PT LEVEL 4 [facility] [id number] [facility] 2022-03-08 00:00:00 2022-03-08 00:00:00 (TEL) STLMLC ST[facility]C [id number] [facility] 2022-02-16 00:00:00 2022-02-16 00:00:00 OFFICE VISIT ESTAB PT LEVEL 4 [facility]C [facility] [id number] [facility] 2022-02-10 00:00:00 2022-02-10 00:00:00 (TEL) STLMLC ST[facility]C [id number] [facility] 2022-01-28 00:00:00 2022-01-28 00:00:00 (TEL) STLMLC ST[facility]C [id number] [facility] 2021-08-19 00:00:00 2021-08-19 00:00:00 OFFICE VISIT ESTAB PT LEVEL 4 [facility] [id number] [facility] 2021-08-19 00:00:00 2021-08-19 00:00:00 SUB ANNUAL MCR WELLNESS VISIT STLMLC STLMLC [id number] [facility] 2021-08-06 00:00:00 2021-08-06 00:00:00 (TEL) STLMLC ST[facility]C [id number] [facility] 2021-02-27 00:00:00 2021-02-27 00:00:00 (COVID Inj) COVID Injection [facility]C [facility] [id number] [facility] 2021-02-23 00:00:00 2021-02-23 00:00:00 OFFICE VISIT ESTAB PT LEVEL 4 [facility]C [facility] [id number] [facility] 2021-02-12 00:00:00 2021-02-12 00:00:00 (TEL) STLMLC STL[facility]C [id number] [facility] 2021-01-29 00:00:00 2021-01-29 00:00:00 OFFICE VISIT ESTAB PT LEVEL 4 [facility]C [facility] [id number] [facility] 2021-01-14 00:00:00 2021-01-14 00:00:00 (HOSP F/U) Hospital Follow Up [facility]C ST[facility]C [id number] [facility] 2021-01-06 00:00:00 2021-01-06 00:00:00 (TEL) STLMLC [facility]C [id number] [facility] 2020-09-02 00:00:00 2020-09-02 00:00:00 SUB ANNUAL MCR WELLNESS VISIT STLMLC ST[facility]C [id number] [facility] 2020-09-02 00:00:00 2020-09-02 00:00:00 OFFICE VISIT EST PT LEVEL 3 [facility] [id number] [facility] 2020-07-01 00:00:00 2020-07-01 00:00:00 Outpatient [facility] [id number] [facility] 2020-06-05 00:00:00 2020-06-05 00:00:00 Outpatient [facility] [id number] [facility] 2020-05-21 00:00:00 2020-05-21 00:00:00 Outpatient [facility] [id number] [facility] Results Test Description Test Time Test Comments Results Result Co mments Source CULTURE, [id number] 00:00:00* Test Item Value Reference Range Interpretation Comme nts CULTURE, URINE (test code = 630-4) SPECIMEN NUMBER: [id number] ALBUMIN/CREATININE RATIO, RANDOM [id number] 00:00:00* Test Item Value Reference Range Interpretation Comme nts ALBUMIN, URINE, RANDOM (test code = 86191-6) 192.3 MG/DL NOT ESTAB MG/DL CALC ALBUMIN/CREAT, RND (test code = 14247-4) 651 MG/G See_Comment H [Automated [employer]] The system which generated this result transmitted reference range: <30 MG/G. The reference range was not used to interpret this result as normal/abnormal. CREATININE, URINE, CONC. (test code = 2161-8) 295.5 MG/DL NOT ESTAB MG/DL CBC W/AUTO [id number] 00:00:00* Test Item Value Reference Range Interpretation Comme nts NUCLEATED RBCS (test code = 23074-8) 0.0 /100 WBC'S See_Comment [Automated messa ge] The system which generated this result transmitted reference range: 0.0 /100 WBC'S. The reference range was not used to interpret this result as normal/abnormal. ABSOLUTE EOSINOPHILS (test code = 94665-2) 0.19 K/UL See_Comment [Automated messa ge] The system which generated this result transmitted reference range: 0.00-0.50 K/UL. The reference range was not used to interpret this result as normal/abnormal. ABSOLUTE LYMPHOCYTES (test code = 63216-8) 1.18 K/UL See_Comment [Automated messa ge] The system which generated this result transmitted reference range: 1.00-4.00 K/UL. The reference range was not used to interpret this result as normal/abnormal. ABSOLUTE MONOCYTES (test code = 06353-2) 0.65 K/UL See_Comment [Automated messa ge] The system which generated this result transmitted reference range: 0.20-1.00 K/UL. The reference range was not used to interpret this result as normal/abnormal. ABSOLUTE NEUTROPHILS (test code = 06023-8) 4.58 K/UL See_Comment [Automated messa ge] The system which generated this result transmitted reference range: 1.50-7.50 K/UL. The reference range was not used to interpret this result as normal/abnormal. BASOPHILS (test code = 12568-3) 0.7 % EOSINOPHILS (test code = 67798-6) 2.8 % HEMATOCRIT (test code = 53660-2) 41.9 % See_Comment [Automated messa ge] The system which generated this result transmitted reference range: 40.0-51.0 %. The reference range was not used to interpret this result as normal/abnormal. HEMOGLOBIN (test code = 718-7) 13.4 G/DL See_Comment L [Automated messa ge] The system which generated this result transmitted reference range: 13.5-17.0 G/DL. The reference range was not used to interpret this result as normal/abnormal. LYMPHOCYTES (test code = 25182-5) 17.7 % MCH (test code = 70153-8) 28.8 PG See_Comment [Automated messa ge] The system which generated this result transmitted reference range: 25.0-33.0 PG. The reference range was not used to interpret this result as normal/abnormal. MCHC (test code = 19702-4) 32.0 G/DL See_Comment [Automated messa ge] The system which generated this result transmitted reference range: 31.0-36.0 G/DL. The reference range was not used to interpret this result as normal/abnormal. MCV (test code = 39531-6) 89.9 fL See_Comment [Automated messa ge] The system which generated this result transmitted reference range: 80.0-99.0 fL. The reference range was not used to interpret this result as normal/abnormal. MONOCYTES (test code = 70678-0) 9.7 % NEUTROPHILS (test code = 86317-6) 68.8 % PLATELET COUNT (test code = 02478-2) 259 K/UL See_Comment [Automated messa ge] The system which generated this result transmitted reference range: 130-400 K/UL. The reference range was not used to interpret this result as normal/abnormal. RBC (test code = 83711-8) 4.66 M/UL See_Comment [Automated messa ge] The system which generated this result transmitted reference range: 4.50-6.10 M/UL. The reference range was not used to interpret this result as normal/abnormal. RDW (test code = 16058-8) 13.0 % See_Comment [Automated messa ge] The system which generated this result transmitted reference range: 11.5-15.0 %. The reference range was not used to interpret this result as normal/abnormal. WBC (test code = 23513-6) 6.7 K/UL See_Comment [Automated messa ge] The system which generated this result transmitted reference range: 3.5-11.0 K/UL. The reference range was not used to interpret this result as normal/abnormal. HEMOGLOBIN [id number] 00:00:00* Test Item Value Reference Range Interpretation Comme nts HEMOGLOBIN A1c (test code = 4548-4) 6.3 % See_Comment H [Automated messa ge] The system which generated this result transmitted reference range: 4.2-5.6 %. The reference range was not used to interpret this result as normal/abnormal. LIPID PANEL WITH REFLEX DIRECT [id number] 00:00:00* Test Item Value Reference Range Interpretation Comme nts CALC LDL CHOL (test code = 54612-2) 94 MG/DL See_Comment [Automated messa ge] The system which generated this result transmitted reference range: <100 MG/DL. The reference range was not used to interpret this result as normal/abnormal. CHOLESTEROL (test code = 2093-3) 156 MG/DL See_Comment [Automated messa ge] The system which generated this result transmitted reference range: <200 MG/DL. The reference range was not used to interpret this result as normal/abnormal. HDL CHOLESTEROL (test code = 2085-9) 40 MG/DL See_Comment [Automated messa ge] The system which generated this result transmitted reference range: >39 MG/DL. The reference range was not used to interpret this result as normal/abnormal. RISK RATIO LDL/HDL (test code = 33325-1) 2.35 RATIO See_Comment [Automated message] The system which generated this result transmitted reference range: <3.55 RATIO. The reference range was not used to interpret this result as normal/abnormal. TRIGLYCERIDES (test code = 2571-8) 122 MG/DL See_Comment [Automated messa ge] The system which generated this result transmitted reference range: <150 MG/DL. The reference range was not used to interpret this result as normal/abnormal. COMPREHENSIVE METABOLIC [id number] 00:00:00* Test Item Value Reference Range Interpretation Comme nts ALBUMIN (test code = 1751-7) 3.9 G/DL See_Comment [Automated messa ge] The system which generated this result transmitted reference range: 3.5-5.2 G/DL. The reference range was not used to interpret this result as normal/abnormal. ALKALINE PHOSPHATASE (test code = 6768-6) 69 U/L See_Comment [Automated message] The system which generated this result transmitted reference range: 40-125 U/L. The reference range was not used to interpret this result as normal/abnormal. BILIRUBIN, TOTAL (test code = 1975-2) 0.6 MG/DL See_Comment [Automated message] The system which generated this result transmitted reference range: <=1.2 MG/DL. The reference range was not used to interpret this result as normal/abnormal. BUN (test code = 3094-0) 19 MG/DL See_Comment [Automated messa ge] The system which generated this result transmitted reference range: 8-23 MG/DL. The reference range was not used to interpret this result as normal/abnormal. CALCIUM (test code = 93743-2) 9.8 MG/DL See_Comment [Automated messa ge] The system which generated this result transmitted reference range: 8.5-10.5 MG/DL. The reference range was not used to interpret this result as normal/abnormal. CALC A/G RATIO (test code = 1759-0) 1.2 RATIO See_Comment [Automated messa ge] The system which generated this result transmitted reference range: 1.0-2.6 RATIO. The reference range was not used to interpret this result as normal/abnormal. CALC BUN/CREAT (test code = 3097-3) 16 RATIO See_Comment [Automated messa ge] The system which generated this result transmitted reference range: 6-28 RATIO. The reference range was not used to interpret this result as normal/abnormal. CALC GLOBULIN (test code = 41840-2) 3.3 G/DL See_Comment [Automated messa ge] The system which generated this result transmitted reference range: 1.9-3.7 G/DL. The reference range was not used to interpret this result as normal/abnormal. CARBON DIOXIDE (test code = 1963-8) 26 MEQ/L See_Comment [Automated messa ge] The system which generated this result transmitted reference range: 19-31 MEQ/L. The reference range was not used to interpret this result as normal/abnormal. CHLORIDE (test code = 2075-0) 101 MEQ/L See_Comment [Automated messa ge] The system which generated this result transmitted reference range: 95-107 MEQ/L. The reference range was not used to interpret this result as normal/abnormal. CREATININE (test code = 2160-0) 1.18 MG/DL See_Comment [Automated messa ge] The system which generated this result transmitted reference range: 0.80-1.40 MG/DL. The reference range was not used to interpret this result as normal/abnormal. eGFR (2020 CKD-EPI) (test code = 49954-7) 62 ML/MIN/1.73 See_Comment [Automated messa ge] The system which generated this result transmitted reference range: >60 ML/MIN/1.73. The reference range was not used to interpret this result as normal/abnormal. GLUCOSE (test code = 1558-6) 120 MG/DL See_Comment H [Automated messa ge] The system which generated this result transmitted reference range: 70-99 MG/DL. The reference range was not used to interpret this result as normal/abnormal. POTASSIUM (test code = 2823-3) 3.8 MEQ/L See_Comment [Automated messa ge] The system which generated this result transmitted reference range: 3.5-5.4 MEQ/L. The reference range was not used to interpret this result as normal/abnormal. PROTEIN, TOTAL (test code = 2885-2) 7.2 G/DL See_Comment [Automated messa ge] The system which generated this result transmitted reference range: 6.1-8.3 G/DL. The reference range was not used to interpret this result as normal/abnormal. AST (test code = 1920-8) 17 U/L See_Comment [Automated messa ge] The system which generated this result transmitted reference range: 9-50 U/L. The reference range was not used to interpret this result as normal/abnormal. ALT (test code = 1742-6) 8 U/L See_Comment [Automated messa ge] The system which generated this result transmitted reference range: 5-50 U/L. The reference range was not used to interpret this result as normal/abnormal. SODIUM (test code = 2951-2) 138 MEQ/L See_Comment [Automated messa ge] The system which generated this result transmitted reference range: 133-146 MEQ/L. The reference range was not used to interpret this result as normal/abnormal. C difficile Toxins A+B, [id number] 00:00:00* Test Item Value Reference Range Interpretation Comme nts C difficile Toxins A+B, EIA (test code = 78906-5) Negative Negative Giardia, EIA; Ova/[id number] 00:00:00* Test Item Value Reference Range Interpretation Comme nts Ova + Parasite Exam (test co de = 39670-9) Final report Giardia lamblia Ag, EIA (olga t code = 6412-1) Negative Negative Stool [id number] 00:00:00* Test Item Value Reference Range Interpretation Comme nts Salmonella/Shigella Screen ( test code = 12501-5) Final report Campylobacter Culture (test code = 6331-3) Final report E coli Shiga Toxin EIA (test code = 93901-9) Negative Negative White Blood Cells (WBC), [id number] 00:00:00* Test Item Value Reference Range Interpretation Comme nts White Blood Cells (WBC), Sto ol (test code = 65189-5) Final report None Seen
[2023-09-13] MEDS ORDERED: ATROPINE SULF 1 MG/10 ML SYR IV ONE (10:42)
[2023-09-13] MEDS ORDERED: NA CHLORIDE 0.9% 1,000 ML ONE (10:46)
--- NOTE | 2023-09-13 10:52 | EDPHYS ---
Physician Documentation [facility] Name: Lucio Perez III Age: 83 yrs Sex: Male : 1940 Arrival Date: 09/13/2023 Time: 10:18 Bed 2 Private MD: ED Physician Ignacio Samayoa HPI: 09/12 10:47 This 83 yrs old Male presents to ER via Wheelchair with complaints of Low ec2 pulse, Urinary Problem, Lethargic, Dizziness. 10:47 Patient arrives today for evaluation of low heart rate. Patient has recently been ec2 generally weak and tired, family had noted that his heart rate were in the 30s and brought him to the emergency department. Patient reports no chest pain, difficulty breathing. Patient is on metoprolol tartrate, 25 mg as well as amlodipine 5 mg daily.. Historical: - Allergies: 10:30 No Known Allergies; mb9 - PMHx: 10:30 Anxiety; Dementia; diabetes mellitus; Hypertensive disorder; Skin cancer (Hypertensive mb9 disorder); - PSHx: 10:30 bowel obstruction; hernia; mb9 - Immunization history:: Adult Immunizations up to date. - Infectious Disease History:: Denies. - Social history:: Smoking status: Patient denies any tobacco usage or history of. ROS: 10:47 Constitutional: as per hpi ec2 Exam: 10:47 Constitutional: GEN: NAD Head: atraumatic Eyes: EOMI Ears: External ears are ec2 normal. CV: regular rate LUNGS: no respiratory distress ABD: non-distended, soft, nontender, guarding, not rigid. SKIN: no evidence of rashes MSK: no evidence of trauma NEURO: moves all extremities equally Vital Signs: 10:29 Pulse 30; Resp 16; Temp 98.2; Pulse Ox 95% on R/A; Weight 72.57 kg (M); Height 5 ft. 8 mb9 in. ; 10:39 BP 155 / 59; Pulse 33; Resp 16; Pulse Ox 96% on R/A; ld1 11:00 BP 164 / 51; ec2 11:47 BP 163 / 62; Pulse 34; Resp 16; Pulse Ox 99% ; ko1 10:29 Body Mass Index 24.33 (72.57 kg, 172.72 cm) mb9 MDM: 10:38 Patient medically screened. ec2 10:47 Data reviewed: vital signs, nurses notes. ED course: Patient arrives today for ec2 evaluation of generalized weakness. Examination remarkable for individual who is bradycardic with heart rates in the 30s who is maintaining appropriate blood pressures with systolics in the 150s and diastolics in the 50s. EKG obtained, independently reviewed and interpreted by me, shows third-degree heart block, rate of 37, no acute ST segment elevations, nonactionable intervals.. 10:50 ED course: I emergently discussed the case with our product handler Dr. Whitfield, he ec2 recommended transfer to EP capable facility.. 10:51 ED course: I have ordered atropine to be at the bedside however patient remains with ec2 appropriate blood pressure. Patient reports no symptoms at this time. I will hold on the atropine administration at this time. Noted with patient crystalloid as well.. 11:00 ED course: On reassessment patient remains with appropriate blood pressures, most ec2 recent blood pressure 164/51.. 11:03 ED course: Differential diagnosis include process such as third-degree AV heart block, ec2 electrolyte disturbances, ACS.. 11:03 ED course: MDM: Differential diagnosis as documented above in ED course; All lab tests ec2 ordered and reviewed as documented above; Independent interpretation of tests: EKG as above; radiograph as above; Parenteral controlled substances: Yes; External records reviewed: Previous ED visit and associated lab work; History gathered from independent historian: Yes; I discussed the case with: Hospitalist . 11:12 ED course: I discussed case with Dr. Guido, cardiology at [facility] as well ec2 as Dr. Negro CCU physician who agreed to accept this patient. We will transfer this patient via [facility]. Patient continues to remain with stable blood pressure at this time I will hold atropine, I have the pacemaker pads on him in case he decompensates however would not initiate at this time. CCU physician and product handler at [facility] agree with plan of care at this time. We discussed briefly transvenous placement however did not feel will be in the best interest to delay definitive care. . 09/12 10:40 Order name: Basic Metabolic Panel; Complete Time: 11:58 ec2 09/12 10:40 Order name: CBC with Diff; Complete Time: 11:01 ec2 09/12 10:40 Order name: Troponin HS; Complete Time: 11:58 ec2 09/12 10:42 Order name: LFT's; Complete Time: 11:58 ec2 09/12 10:40 Order name: XRAY Chest (1 view); Complete Time: 11:58 ec2 09/12 10:40 Order name: Cardiac monitoring; Complete Time: 10:40 ec2 09/12 10:40 Order name: EKG - Nurse/Tech; Complete Time: 10:40 ec2 09/12 10:40 Order name: IV Saline Lock; Complete Time: 10:40 ec2 09/12 10:40 Order name: Labs collected and sent; Complete Time: 10:40 ec2 09/12 10:40 Order name: O2 Per Protocol; Complete Time: 10:40 ec2 09/12 10:40 Order name: O2 Sat Monitoring; Complete Time: 10:40 ec2 09/12 11:09 Order name: NPO; Complete Time: 11:17 ec2 Administered Medications: 10:45 Drug: NS 0.9% IV 1000 ml IV at 1000 ml once Route: IV; Rate: 1000 ml; Site: right ko1 antecubital; 11:30 Follow up: Response: No adverse reaction; IV Status: Completed infusion; IV Intake: ko1 1000ml 11:39 Not Given (Physician Discretion): atropine0.5 mg IVP once ko1 Disposition Summary: 09/13/23 10:51 Transfer Ordered Notes: Transfer Location: Other Acute Care Facility ec2 Reason: Higher level of care ec2 Condition: Stable ec2 Problem: new ec2 Symptoms: are unchanged ec2 Accepting Physician: transferring doc(09/13/23 11:48) ko1 Diagnosis - Other specified heart block ec2 - Bradycardia, unspecified ec2 - Dizziness and giddiness ec2 Forms: - Medication Reconciliation Form ec2 - SBAR form ec2 Critical care time excluding procedures: 11:01 Critical care time: Bedside Care: 30 minutes, Consultation: 5 minutes. Total time: 35 ec2 minutes Signatures: Dispatcher [employer] Yennifer Juarez RN RN ko1 Mónica Snyder RN RN [email or web address] Ignacio Samayoa MD MD ec2 Corrections: (The following items were deleted from the chart) 10:40 10:40 BASIC METABOLIC PANEL+C.LAB.BRZ ordered. EDMS EDMS 10:40 10:40 CBC+H.LAB.BRZ ordered. EDMS EDMS 10:40 10:40 Troponin High Sensitivity+C.LAB.BRZ ordered. EDMS EDMS 10:40 10:40 Chest Single View+RAD.RAD.BRZ ordered. EDMS EDMS 11:01 10:52 Critical care time: Bedside Care: 30 minutes. Total time: 30 minutes ec2 ec2 11:04 11:03 ED course: MDM: Differential diagnosis as documented above in ED course; All lab ec2 tests ordered and reviewed as documented above; Independent interpretation of tests: EKG as above; radiograph as above; Parenteral controlled substances: Yes; External records reviewed: Previous ED visit and associated lab work; History gathered from independent historian: Yes; I discussed the case with: Hospitalist MDM: Differential diagnosis as documented above in ED course; All lab tests ordered and reviewed as documented above; Independent interpretation of tests: EKG as above; History gathered from independent historian: Yes, ; I discussed the case with: Cardiology, transferring physician . ec2 11:48 10:51 transferring doc ec2 ko1
--- NOTE | 2023-09-13 10:52 | ER ---
Nurse's Notes [facility] Name: Lucio Perez III Age: 83 yrs Sex: Male : 1940 Arrival Date: 09/13/2023 Time: 10:18 Bed 2 Private MD: Diagnosis: Other specified heart block;Bradycardia, unspecified;Dizziness and giddiness Presentation: 09/12 10:29 Chief complaint: Patient states: "I got diagnosed with a UTI yesterday and started mb9 Sulfamethoxazole. I started becoming dizzy, lethargic, not acting like myself, low HR in the 30s, and have diarrhea today.". Coronavirus screen: Vaccine status: Patient reports receiving the 2nd dose of the covid vaccine. Ebola Screen: No symptoms or risks identified at this time. Initial Sepsis Screen: Does the patient meet any 2 criteria? No. Patient's initial sepsis screen is negative. Does the patient have a suspected source of infection? No. Patient's initial sepsis screen is negative. Risk Assessment: Do you want to hurt yourself or someone else? Patient reports no desire to harm self or others. Onset of symptoms was September 13, 2023. 10:29 Method Of Arrival: Wheelchair mb9 10:29 Acuity: NICCI 2 mb9 Triage Assessment: 10:31 General: Appears uncomfortable, Behavior is cooperative. Pain: Denies pain. EENT: No mb9 signs and/or symptoms were reported regarding the EENT system. Neuro: Level of Consciousness is awake, obeys commands, confused, Oriented to person, place, time, Reports dizziness. Cardiovascular: Patient's skin is warm and dry. Rhythm is sinus bradycardia. Respiratory: Airway is patent Respiratory effort is even, unlabored, Respiratory pattern is regular, symmetrical. GI: No signs and/or symptoms were reported involving the gastrointestinal system. : Reports UTI. Derm: Skin is pink, warm \\T\\ dry. Musculoskeletal: Range of motion: intact in all extremities. Historical: - Allergies: 10:30 No Known Allergies; mb9 - PMHx: 10:30 Anxiety; Dementia; diabetes mellitus; Hypertensive disorder; Skin cancer (Hypertensive mb9 disorder); - PSHx: 10:30 bowel obstruction; hernia; mb9 - Immunization history:: Adult Immunizations up to date. - Infectious Disease History:: Denies. - Social history:: Smoking status: Patient denies any tobacco usage or history of. Screenin:30 [facility] ED Fall Risk Assessment (Adult) History of falling in the last 3 months, ko1 including since admission Yes- single mechanical fall (1 pt) Confusion or Disorientation Yes (5 pts) Intoxicated or Sedated No (0 pts) Impaired Gait Yes (1 pt) Mobility Assist Device Used Yes (1 pt) Altered Elimination No (0 pt) Score/Fall Risk Level 3 or more points = High Risk Oriented to surroundings, Maintained a safe environment, Educated pt \\T\\ family on fall prevention, incl call for assistance when getting out of bed, Assessed \\T\\ reinforced patient's understanding of fall precautions, Provided non-skid footwear, Hourly rounding (assess needs \\T\\ fall precautionary measures) done, Used ambulatory aids as needed (educated on \\T\\ assisted with), Used gait belt as appropriate Implemented a Fall Risk Plan of Care, Apply high fall risk patient identification: yellow non skid footwear/ fall signage, Remained w/in arm's length of patient and in sight while toileting, Offered frequent toileting (1:1 observation), Remained with patient while ambulating, Utilized family, sitter, or virtual traffic personnel supervisor as indicated. Abuse screen: Denies threats or abuse. Denies injuries from another. Nutritional screening: No deficits noted. Tuberculosis screening: No symptoms or risk factors identified. Assessment: 10:30 Reassessment: Placed patient on defib pads per Dr. Samayoa request. EKG completed. Staff ld1 at bedside providing care. General:. Vital Signs: 10:29 Pulse 30; Resp 16; Temp 98.2; Pulse Ox 95% on R/A; Weight 72.57 kg (M); Height 5 ft. 8 mb9 in. ; 10:39 BP 155 / 59; Pulse 33; Resp 16; Pulse Ox 96% on R/A; ld1 11:00 BP 164 / 51; ec2 11:47 BP 163 / 62; Pulse 34; Resp 16; Pulse Ox 99% ; ko1 10:29 Body Mass Index 24.33 (72.57 kg, 172.72 cm) mb9 ED Course: 10:21 Patient arrived in ED. im 10:24 Ignacio Samayoa MD is Attending Physician. ec2 10:29 Tariq, Yennifer, RN is Primary Nurse. ko1 10:30 Triage completed. mb9 10:30 Patient has correct armband on for positive identification. Fall risk band placed. ko1 Placed in gown. Bed in low position. Call light in reach. Side rails up X2. Provided Education on: labs, tests, meds. Client placed on continuous cardiac and pulse oximetry monitoring. NIBP monitoring applied. veterinary inspector on. Door closed. Noise minimized. Lights dimmed. Warm blanket given. Pillow given. 10:30 Initial lab(s) drawn, by me, sent to lab. EKG done, by ED staff, reviewed by Ignacio Samayoa MD. Inserted saline lock: 20 gauge in right antecubital area, using aseptic technique. Blood collected. 10:31 Arm band placed on. mb9 11:03 initiated transfer [facility]. bd 11:17 LFT's Sent. ko1 11:25 XRAY Chest (1 view) In Process Unspecified. EDMS 11:26 Inserted saline lock: 18 gauge in left antecubital area, using aseptic technique. ko1 11:47 No provider procedures requiring assistance completed. Patient transferred, IV remains ko1 in place. Administered Medications: 10:45 Drug: NS 0.9% IV 1000 ml IV at 1000 ml once Route: IV; Rate: 1000 ml; Site: right ko1 antecubital; 11:30 Follow up: Response: No adverse reaction; IV Status: Completed infusion; IV Intake: ko1 1000ml 11:39 Not Given (Physician Discretion): atropine0.5 mg IVP once ko1 Medication: 10:30 VIS not applicable for this client. ko1 Intake: 11:30 IV: 1000ml; Total: 1000ml. ko1 Outcome: 10:51 ER care complete, transfer ordered by . ec2 11:47 Transferred by [facility]. to [facility], Transfer form ko1 completed. X-rays sent w/ patient. 11:47 Condition: stable 11:47 Instructed on the need for transfer, Demonstrated understanding of instructions, 11:48 Patient left the ED. ko1 Signatures: Dispatcher [employer] EDMS Deanna Mcmahan Lauren, RN RN ld1 Yennifer Potter, RN RN ko1 Mónica Snyder RN RN mb9 Alesia Lopez Edwin, MD MD ec2
[2023-09-13 10:59] LABS: Absolute Eosinophils 0.1 K/uL (0-0.5); Absolute Lymphocytes (CBC) 1.2 K/uL (0.7-4.9); Absolute Monocytes 0.8 K/uL (0.1-1.3); Absolute Neutrophil 6.5 K/uL (1.8-8.0); Basophils % 0.4 % (0-1.3); Hematocrit 38.1 % (39.6-49.0); Hemoglobin 12.5 g/dL (13.6-17.9); Lymphocytes % 13.7 % (15.3-44.8); MCH 29.1 pg (27.0-35.0); MCHC 32.9 g/dL (32.0-36.0); MCV 88.5 fL (80-100); MPV 8.2 fL (7.6-11.3); Monocytes % 9.2 % (3.3-12.3); Neutrophils % 75.7 % (41.7-73.7); Platelets 186 thou/uL (152-406); Red Cell Distribution Width 15.2 % (12.1-15.2)
[2023-09-13 11:13] LABS: Anion Gap 9.5 mEq/L (5.0-15.0); Potassium 3.5 mEq/L (3.5-5.1)
[2023-09-13 11:16] LABS: Troponin High Sensitivity 63.4 pg/mL (<58.9)
--- NOTE | 2023-09-13 11:40 | RAD REPORT ---
EXAM DESCRIPTION: RADChest Single View09/13/2023 11:23 am CLINICAL HISTORY: CHEST PAIN COMPARISON: Chest Single View dated 09/15/2022; Chest Pa And Lat (2 Views) dated 07/01/2022; Chest Pa A nd Lat (2 Views) dated 12/15/2021; Abdomen 1 View (KUB) dated 01/01/2021 TECHNIQUE: Portable AP view of the chest. FINDINGS: External wires and devices partially obscure evaluation. Central interstitial prominence, progressive since the prior exam. The lungs show no other focal consolidation. No pneumothorax. Blun ting of the right costophrenic angle, may relate to pleural thickening or trace effusion. Mild-to-mod erate cardiomegaly with last shaped appearance of the heart, may indicate a component of pericardial effusion. Mediastinal contours are unremarkable. IMPRESSION: Findings suggesting central congestion/ CHF as above.
[2023-09-13 11:43] LABS: Albumin/Globulin Ratio 0.7 (1.1-1.8); Bilirubin Direct 0.2 mg/dL (0-0.2); Bilirubin Indirect, Calculated 0.6 mg/dL (0.2-0.8); Bilirubin Total 0.8 mg/dL (0.2-1.0); Globulin 4.3 g/dL (2.3-3.5); Protein, Total 7.3 g/dL (6.4-8.2)
[2023-09-13 11:58] VITALS: BP 163/62; TEMP 98.2; O2SAT 99
--- NOTE | 2023-09-14 16:36 | EKG ---
Test Date: 2023-09-13 Test Time: 10:34:12 Medical Sales Representative: Sharita Olson MEASUREMENT RESULTS: Intervals: Rate: 37 [place]: QRSD: 140 QT: 678 QTc: 532 [place]: P: 34 [place]: QRS: -72 T: 97 INTERPRETIVE STATEMENTS: Complete heart block with escape slow junctional rhythm and PVCs Right bundle branch block Left anterior fascicular block Bifascicular block T wave abnormality, consider lateral ischemia Compared to ECG 09/13/2023 10:31:50 T-wave abnormality now present Possible ischemia now present Sinus bradycardia no longer present Fusion complex(es) no longer present Electronically Signed On 09-14-23 16:35:30 CDT by Johny Whitfield
== END 2023-09-13 11:48 ==
LOC: ER 10:18
DX: I45.5 Other specified heart block (principal); R42 Dizziness and giddiness
CPT/HCPCS: 93005; 85025; 80048; 36415; 80076; 84484; 71045; 96360; 99285; J7030; J0461